=== PATIENT | male | born 1970 | race Caucasian/White ===

== ENCOUNTER → 2024-08-25 | Outpatient (CLI) | payer OTHER, SELFPAY ==
[2024-08-25 18:02] LABS: ALB/GLOB Ratio 1.3 RATIO (0.9-2.4); AST(SGOT) 34 U/L (<=37); Alanine Aminotransfer ALT/SGPT 58 U/L (<=46); Albumin, Serum 3.9 g/dL (3.5-5.0); Alkaline Phosphatase 71 U/L (40-129); Anion Gap 11 (5-15); BUN 20 mg/dL (4-19); BUN/Creat Ratio 21.1 RATIO (10-20); Calcium,Total 9.2 mg/dL (7.6-11.0); Carbon Dioxide 27.8 mmol/L (21.0-32.0); Chloride 101 mmol/L (98-108); Creatinine, Serum 0.93 mg/dL (0.70-1.20); EST Glomerular Filtration Rate 99 (>60); Globulin 3.1 g/dL (2.2-4.2); Glucose 136 mg/dL (70-99); Potassium 3.4 mmol/L (3.3-5.1); Sodium Level 140 mmol/L (133-145); Total Bilirubin 0.33 mg/dL (0.00-1.30)
== END | disposition home or self-care (01) ==
LOC: BIMLAB 14:58
PROVIDERS: PCP Internal Medicine; Visit Provider Internal Medicine
DX: K76.0 Fatty (change of) liver, not elsewhere classified (principal)
CPT/HCPCS: 36415; 80053

== ENCOUNTER → 2024-09-15 | Outpatient (CLI) | payer OTHER, SELFPAY | END | disposition home or self-care (01) | LOC: SL 13:03 | PROVIDERS: PCP Internal Medicine; Referring Provider Internal Medicine; Visit Provider Internal Medicine | DX: G47.10 Hypersomnia, unspecified (principal) | CPT/HCPCS: 95806 ==

== ENCOUNTER → 2024-10-13 | Outpatient (CLI) | payer OTHER, SELFPAY | END | disposition home or self-care (01) | PROVIDERS: PCP Internal Medicine; Referring Provider Internal Medicine; Visit Provider Internal Medicine | DX: G47.10 Hypersomnia, unspecified (principal) | CPT/HCPCS: 95806 ==

== ENCOUNTER 2024-10-20 02:01 | Emergency (ER) | payer OTHER, SELFPAY ==
[2024-10-20 02:02] VITALS: BP 171/68; PULSE 103; RESP 16; TEMP 36.6; O2SAT 97; BMI 54.0
--- NOTE | 2024-10-20 02:14 | EX.ED.DYSGE1 ---
HPI History of Present Illness Chief Complaint: General Illness Narrative Narrative: 54-year-old male who denies significant past medical history presents with what he thought was a cyst on the top of his skull. States he noticed small bumps on the area or at least 1 small bump on the top of his scalp on the left. That was Thursday, approximately 3 days ago. He states Thursday he thought it spread out a little bit. He denies any fevers or chills but states he has a headache 2. Times he is having problems opening his left eye. He has pain behind his left eye as well. No vision changes. No burning sensation. States he is not diabetic. [facility] Medical History Herniated disc Prediabetes Elevated LFTs Fatty liver Hyperlipidemia Hypertension Home Medications ?Medication ?Instructions ?Recorded ?Last Taken ?Type chlorthalidone 25 mg tablet 25 mg PO QDAY #30 tabs 10/17/24 Unknown Rx irbesartan 300 mg tablet 300 mg PO QDAY #30 tabs 10/17/24 Unknown Rx acyclovir 800 mg tablet 800 mg PO 5X/DAY #35 TABLETS 10/20/24 Unknown Rx gabapentin 100 mg capsule 100 mg PO TID #21 caps 10/20/24 Unknown Rx oxycodone-acetaminophen 5 mg-325 1 tab PO Q8H PRN pain 3 days #12 10/20/24 Unknown Rx mg tablet (Percocet) tabs Allergy/AdvReac Type Severity Reaction Status Date / Time lisinopril AdvReac Intermediate cough Verified 09/01/24 13:12 Family History Father Diabetes Myocardial infarction Heart disease Hypertension Surgical History No pertinent past surgical history Social History adopted: No household members: spouse number of children: 1 current occupational status: employed current occupation: [employer] pets and animals: Yes (1) pets and animals: dog(s) sexually active: Yes Smoking Status: Never smoker alcohol intake: current alcohol intake frequency: a few times a month Alcohol type: hard liquor substance use type: does not use caffeine: Yes (2) Type: other what type of physical activity do you participate in: walking frequency: 3-4 times per week do you feel safe at home: Yes ROS ROS ED ROS Narrative Review of systems positive for bump on top of scalp, left parietal area. Positive headache and pain behind left eye. No visual changes. No fevers or chills, no nausea or vomiting. EXAM Physical Exam Narrative Exam Narrative: Afebrile. Vital signs noted. Nontoxic-appearing. Cardiovascular examination reveals mild tachycardia. Lungs clear to auscultation bilaterally. Patient at top of scalp reveals small excoriated bumps without fluctuance. On the left forehead there are few red raised areas as well. PERRL, EOMI. Const Vital Signs: 10/20/24 02:02 10/20/24 02:17 Temperature 97.8 F Temperature Source Oral Pulse Rate 103 H Respiratory Rate 16 Respiratory Effort Normal Blood Pressure 171/68 H Blood Pressure Mean 102 Pulse Ox 97 Oxygen Delivery Method Room Air MDM MDM MDM Narrative Medical decision making narrative: The differential diagnosis to include but not limited to severe cyst versus lipoma versus shingles. Given his clinical examination and inspection I do feel he probably has prodromal shingles in the V1 distribution. He was given acyclovir 800 mg here in the emergency department. I did offer him stronger pain medications and prescription form but he declined initially, then finally accepted. He will be started on acyclovir to take 5 times a day, and also given a prescription for gabapentin to help prevent postherpetic neuralgia.. He will follow-up with his primary care provider. I will perform tetracaine and fluorescein staining of the left eye to look for dendritic lesions as well in the event that he would need follow-up with ophthalmology. Tetracaine was instilled in the left eye as well as fluorescein and there is no evidence of dendritic lesions. At this point in time, I feel he can be discharged to follow-up with his primary care provider. I did refer him to ophthalmology as well in the event that he developed shingles on his eyelid, he was told he may need another corneal examination. Return instructions to the emergency department were reviewed. Disposition is discharged home in stable condition. History & Record Review Discussion w/independent historian: Patient Additional record(s) reviewed:: No prior records (No prior ED visits) Discharge Plan Triage Chief Complaint: General Illness ED Provider: Dennys Betancur Dx/Rx/DC Orders Clinical Impression: Shingles, Scalp pain Instructions: ED Shingles (Herpes Zoster) Prescriptions: New gabapentin 100 mg capsule 100 mg PO TID Qty: 21 0RF oxycodone-acetaminophen [Percocet] 5-325 mg tablet 1 tab PO Q8H PRN (Reason: pain) 3 Days Qty: 12 0RF acyclovir 800 mg tablet 800 mg PO 5X/DAY Qty: 35 0RF No Action irbesartan 300 mg tablet 300 mg PO QDAY Qty: 30 2RF chlorthalidone 25 mg tablet 25 mg PO QDAY Qty: 30 2RF Primary Care Provider: Neda Avilez Referrals: Neda Avilez MD [Primary Care Provider] - 1 Week if not improving Joseph Santacruz MD [Med Staff - Active Staff] - As Needed Activity Restrictions/Additional Instructions: Take antiviral as directed. Take gabapentin to help prevent postherpetic neuralgia. Follow-up with [facility] as needed if you develop shingles on your eyelid or have vision problems. Return with new or worsening symptoms. Print Language: Czech Disposition Disposition: Home, Self Care
[2024-10-20] MEDS: Tetracaine 0.5% Ophthalmic Bottle 1 DRP OPHTHALMIC (02:28)
[2024-10-20 02:51] VITALS: BP 160/86; PULSE 89; RESP 16; TEMP 36.8; O2SAT 98
--- OUTSIDE RECORDS SUMMARY | 2024-10-20 02:52 | XMS RPT_ITS | CCD ---
Author Organization [facility] Care Team Providers Care It Applications Developer Name Role Phone Unavailable Primary Care Provider Unavailbhavik Rosen MD, Abby Noriega Primary Care Provider [phone] Kelly AUXILIARY EQUIPMENT TENDER.CATHI, Babar Unavailable [phone] HANK CABRERA Attending Unavailable ABBY ROSEN Primary Care Unavailable ABBY ROSEN Referring Unavailable BABAR MENDOZA Referring Unavailable ABBY ROSEN Primary Care Unavailable ABBY ROSEN Attending Unavailable BABAR MENDOZA Attending Unavailable Fatmata SANCHEZ, Dr. Red Attending Provider Dr. Neda Avilez MD Primary Care Provider [phone] Dr. Neda Avilez MD Referring Provider NURSE, BIM Attending Provider Unavailable Fatmata Neda Referring Unavailable Alexandr Avilezycia Attending Unavailable Fatmata, Neda Primary Care Unavailable Alexandr Avilezycia Attending Unavailable Fatmata, Neda Primary Care Unavailable Fatmata, Neda Referring Unavailable Rosio Avilezia Attending Unavailable Eola, Neda Primary Care Unavailable Rosio Avilezia Attending Unavailable Fatmata, Neda Referring Unavailable Alexandr Avilezycia Attending Unavailable Fatmata Neda Primary Care Unavailable Allergies Allergy Classification Reported Allergen(s) Allergy Type Date of Onset Reaction(s) Facility (10 sources) Lisinopril; Translations: [LISINOPRIL] Drug Allergy 12-02-[address] [facility] Work Phone: (1 source) Lisinopril Drug Allergy 09-01-2024 [facility] Repository Medications Current Medications Medication Drug Class(es) Dates Sig (Normalized) Sig (Original) cephalexin 500 mg oral capsule (2 sources) Cephalosporin Antibacterial Start: 11-13-2023 End: 11-18-2023 take 1 capsule by mouth four times daily cephALEXin (KEFLEX) 500 mg capsule Take 1 capsule by mouth four times daily for 5 days. 20 capsule 11/13/2023 11/18/2023 Active chlorthalidone 25 mg oral tablet (13 sources) Thiazide-like Diuretic Start: 08-25-2024 End: 08-25-2024 take 1 tablet by mouth once daily Chlorthalidone 25 mg tablet Active 25 mg PO daily 14 04August 25, 2024 2:53pm Start: 12-23-2023 take 1 tablet by jean-claude th once daily chlorthalidone (HYGROTON) 25 mg tablet Take 1 tablet by mouth once daily. 30 tablet 11 12/23/2023 Active diphenhydrAMINE (8 sources) Histamine-1 Receptor Antagonist DIPHENHYDRAMINE HCL (BENADRYL ORAL) Take by mouth as needed. Active doxycycline monohydrate 100 mg oral tablet (2 sources) Tetracycline-class Drug Start: 2023 End: 2023 take 1 tablet by mouth twice daily doxycycline monohydrate 100 mg tablet Take 1 tablet by mouth two times a day for 5 days. 10 tablet 11/13/2023 11/18/2023 Active hydroCHLOROthiazide 12.5 mg / lisinopril 20 mg oral tablet (1 source) Thiazide Diuretic, Angiotensin Converting Enzyme Inhibitor Start: 2023 take 1 tablet by mouth once daily in the morning lisinopril-hydroCHLOR Othiazide (ZESTORETIC) 20-12.5 mg per tablet Indications: Primary hypertension Take 1 tablet by mouth every morning. 30 tablet 11/19/2023 Active ibuprofen 200 mg oral capsule (8 sources) Nonsteroidal Anti-inflammatory Drug Ibuprofen 200 mg cap Take by mouth as needed. Active irbesartan 300 mg oral tablet (13 sources) Angiotensin 2 Receptor Cara Start: 2024 End: 2024 take 1 tablet by mouth once daily Irbesartan 300 mg tablet Active 300 mg PO daily 14 04August 25, 2024 2:53pm Start: 12-23-2023 take 1 tablet by jean-claude th once daily at bedtime irbesartan (AVAPRO) 300 mg tablet Take 1 tablet by mouth daily at bedtime. 30 tablet 5 12/23/2023 Active Completed/Discontinued Medications Medication Drug Class(es) Dates Sig (Normalized) Sig (Original) hydroCHLOROthiazide 25 mg oral tablet (1 source) Thiazide Diuretic Start: 4 End: 4 take 1 tablet by mouth once daily hydroCHLOROthiazide 25 mg tablet Take 1 tablet by mouth once daily. 30 tablet 12/02/2023 12/23/2023 Discontinued losartan potassium 100 mg oral tablet (1 source) Angiotensin 2 Receptor Cara Start: 4 End: 4 take 1 tablet by mouth once daily losartan (COZAAR) 100 mg tablet Take 1 tablet by mouth once daily. 30 tablet 12/02/2023 12/23/2023 Discontinued metFORMIN hydrochloride 1000 mg oral tablet (9 sources) Biguanide Start: 5 End: 5 take 1 tablet by mouth twice daily Metformin 1,000 mg tablet Discontinued 1000 mg PO TWICE A DAY August 25, 2024 12:00am August 25, 2024 2:05pm Start: 12-25-2023 End: 04-05-2024 take 1 tablet by mouth once daily at dinner, then take 2 tablets by mouth once daily at dinner metFORMIN ER (GLUCOPHAGE XR) 500 mg 24 hr tablet Indications: Morbid obesity with BMI of 50.0-59.9, adult (HCC) , Fatty liver Take 1 tablet by mouth daily with dinner for 7 days, THEN 2 tablets daily with dinner. 187 tablet 12/30/2023 04/05/2024 Active Problems Active Problems Problem Classification Problem Date Documented Date Episodic/Chronic Abdominal pain (1 source) Right flank pain; Translations: [Unspecified abdominal pain] 12-23-2023 Episodic Administrative/socia l admission (4 sources) First encounter by subject; Translations: [Persons encountering health services in other specified circumstances] 08-25-2024 Episodic Diabetes mellitus without complication (8 sources) Prediabetes; Translations: [Prediabetes] Onset: 08-25-2024 08-25-2024 Episodic Disorders of lipid metabolism (1 source) Mixed hyperlipidemia; Translations: [Mixed hyperlipidemia] 11-19-2023 Chronic Essential hypertension (9 sources) Essential hypertension; Translations: [Essential (primary) hypertension] Onset: 09-05-2024 11-19-2023 Chronic Immunizations and screening for infectious disease (12 sources) Patient encounter status; Translations: [Encounter for screening for human immunodeficiency virus [HIV]] 11-19-2023 Episodic Other connective tissue disease (4 sources) Swelling of lower limb; Translations: [Other specified soft tissue disorders] 11-18-2023 Episodic Other connective tissue disease (3 sources) Suspected respiratory disease; Translations: [Other symptoms and signs involving the nervous system] 08-25-2024 Episodic Other inflammatory condition of skin (1 source) Erythema of skin; Translations: [Erythematous condition, unspecified] 11-13-2023 Episodic Other liver diseases (8 sources) Steatosis of liver; Translations: [Fatty (change of) liver, not elsewhere classified] 12-23-2023 Chronic Other liver diseases (2 sources) Fatty (change of) liver, not elsewhere classified; Translations: [Fatty liver] Onset: 12-25-2023 Chronic Other lower respiratory disease (1 source) Dyspnea on exertion; Translations: [Other forms of dyspnea] 11-19-2023 Episodic Other nutritional; endocrine; and metabolic disorders (16 sources) Body mass index 40+ - severely obese; Translations: [Morbid (severe) obesity due to excess calories] Onset: 08-12-2017 Resolved: 11-19-2023 08-12-2017 Chronic Other nutritional; endocrine; and metabolic disorders (1 source) Morbid (severe) obesity due to excess calories; Translations: [Morbid obesity with BMI of 50.0-59.9, adult ([facility])] Onset: 12-25-2023 Chronic Other nutritional; endocrine; and metabolic disorders (1 source) Body mass index (BMI) 50.0-59.9, adult; Translations: [Morbid obesity with BMI of 50.0-59.9, adult ([facility])] Onset: 12-25-2023 Chronic Residual codes; unclassified (2 sources) Hypersomnia, unspecified; Translations: [Hypersomnia, unspecified] Onset: 09-22-2024 Chronic Residual codes; unclassified (1 source) Bilateral lower limb edema; Translations: [Localized edema] 11-19-2023 Episodic Residual codes; unclassified (3 sources) Immunization not carried out because of patient refusal; Translations: [Herpes zoster vaccination declined] 08-25-2024 Episodic Residual codes; unclassified (3 sources) Medication overuse; Translations: [Overuse of medication] 08-25-2024 Episodic Spondylosis; intervertebral disc disorders; other back problems (3 sources) Chronic low back pain; Translations: [Chronic low back pain] 08-25-2024 Episodic Past or Other Problems Problem Classification Problem Date Documented Da te Episodic/Chronic Other liver diseases (8 sources) Elevated liver enzymes level; Translations: [Abnormal levels of other serum enzymes] Onset: 07-12-2009 07-12-2009 Episodic Results Test Name Value Interpretation Reference Range Facility Office Visit Reporton [address] [facility] [address] [place] [address] OFFICE VISIT Date of Service: 09/01/24 MR#: [id number] Acct: [id number] Patient: Julissa SAHNI Rep #: [id number] : 1970 Provider: GIANNA NURSE Age/Sex: 54/M Location: [facility] Status: Signed Intake Vital Signs 08/25/24 14:12 09/01/24 13:13 Height 6 ft 1 in 6 ft 1 in Weight: 390 lb BMI 51.4 BP 176/92 H 122/78 H Blood Pressure Location Lt brachial Lt brachial Position Sitting Respiration 16 Pulse 82 Pulse Source Monitor Temp 97.4 F L Temp Source Temporal Pulse Oximetry (%) 97 Oxygen Delivery Method room air Intake Visit Reasons: BP CHECK Chief Complaint: bp check Carbide Operator Required: No Accompanied by: Self Is patient in pain?: No Allergies lisinopril Adverse Reaction (Intermediate, Verified 09/01/24 13:12) cough Medications ???Medication ???Instructions ???Recorded ???Confirmed ???Type chlorthalidone 25 mg tablet 25 mg PO QDAY #30 tabs 08/25/24 Rx irbesartan 300 mg tablet 300 mg PO QDAY #30 tabs 08/25/24 0 09/01/24 Rx Have you fallen in the past year?: No Nurse's Note: patient stated his blood pressure has been pretty good with medication he has been monitoring at home bp today was 122/78 stated he is happy with where he is at with medication at this time feels pretty good Assessment and Plan Assessment and Plan (1) Essential hypertension: Status: Acute Clinical Quality Measures Falls Risk Screening/Assistive Devices Have you fallen in the past year?: No 09/01/24 1503 Date Neda Puckett Signature: Date (if applicable) CC: Normal [facility] Anion gap in Serum or Plasma Ordered By: Neda Avilez on 08-25-2024 Anion gap [Moles/Vol] 11 mmol/L 5-15 [facility] BUN/creatinine ratioOrdered By: Neda Avilez on 08-25-2024 Urea nitrogen/Creatinine [Mass ratio] 21.1 mg/mg High 10- [facility] Bilirubin, totalOrdered By: Neda Avilez on 08-25-2024 Bilirubin [Mass/Vol] 0.33 mg/dL 0.00-1.30 [facility] Carbon dioxide, total [Moles /volume] in Central venous bloodOrdered By: Neda Avilez on 08-25-2024 CO2 [Moles/Vol] 27.8 mmol/L 21.0-32.0 [facility] Chloride assayOrdered By: Alexandr Avilez on 08-25-2024 Chloride [Moles/Vol] 101 mmol/L 98-108 [facility] Comprehensive Metabolic Prof ilon 08-25-2024 Albumin [Mass/Vol] 3.9 g/dL Normal 3.5-5.0 [facility] Comment on above: Performed By: #### L [id number] #### [facility] [address] [place], [place], [id number] Albumin/Globulin [Mass ratio] 1.3 {ratio} Normal 0.9-2.4 [facility] Comment on above: Performed By: #### L [id number] #### [facility] [address] [place], [address] ALK PHOS 71 U/L Normal 40-129 [facility] Comment on above: Performed By: #### L [id number] #### [facility] [address] [place], [address] ALT [Catalytic activity/Vol] 58 U/L High <=46 [facility] Comment on above: Performed By: #### L [id number] #### [facility] [address] [place], [address] AST [Catalytic activity/Vol] 34 U/L Normal <=37 [facility] Comment on above: Performed By: #### L [id number] #### [facility] [address] [place], [address] Bilirubin [Mass/Vol] 0.33 mg/dL Normal 0.00-1.30 [facility] Comment on above: Performed By: #### L [id number] #### [facility] [address] [place], [address] BUN/CRE 21.1 RATIO High 10-20 [facility] Comment on above: Performed By: #### L [id number] #### [facility] [address] [place], [address] Calcium [Mass/Vol] 9.2 mg/dL Normal 7.6-11.0 [facility] Comment on above: Performed By: #### L [id number] #### [facility] [address] [place], [address] Chloride [Moles/Vol] 101 mmol/L Normal 98-108 [facility] Comment on above: Performed By: #### L [id number] #### [facility] [address] [place], [address] CO2 [Moles/Vol] 27.8 mmol/L Normal 21.0-32.0 [facility] Comment on above: Performed By: #### L [id number] #### [facility] [address] [place], [address] Creatinine [Mass/Vol] 0.93 mg/dL Normal 0.70-1.20 [facility] Comment on above: Performed By: #### L [id number] #### [facility] [address] [place], [address] GAP 11 Normal 5-15 [facility] Comment on above: Performed By: #### L [id number] #### [facility] [address] [place], [address] GFR/1.73 sq M.predicted among non-blacks MDRD (S/P/Bld) [Vol rate/Area] 99 mL/min/{1.73_m2} Normal >60 [facility] Comment on above: Result Comment: mL/m in/1.73m2 CKD-EPI Creatinine Equation (2020) Performed By: #### L [id number] #### [facility] [address] [place], [address] Globulin (S) [Mass/Vol] 3.1 g/dL Normal 2.2-4.2 [facility] Comment on above: Performed By: #### L [id number] #### [facility] [address] [place], [address] Glucose [Mass/Vol] 136 mg/dL High 70-99 [facility] Comment on above: Performed By: #### L [id number] #### [facility] [address] [place], [address] Potassium [Moles/Vol] 3.4 mmol/L Normal 3.3-5.1 [facility] Comment on above: Result Comment: Hemo lysis present, Results??could be affected. ?? Performed By: #### L [id number] #### [facility] [address] [place], [place], [id number] Sodium [Moles/Vol] 140 mmol/L Normal 133-145 [facility] Comment on above: Performed By: #### L [id number] #### [facility] [address] [place], [place], [id number] T PROT 7.0 g/dL Normal 5.9-8.4 [facility] Comment on above: Performed By: #### L [id number] #### [facility] [address] [place], [place], [id number] Urea nitrogen [Mass/Vol] 20 mg/dL High 4-19 [facility] Comment on above: Performed By: #### L [id number] #### [facility] [address] [place], [place], [id number] Glomerular filtration rate ( GFR) estimation/1.73 sq m using serum, plasma, or whole bOrdered By: Neda Avilez on 08-25-2024 GFR/1.73 sq M.predicted among non-blacks MDRD (S/P/Bld) [Vol rate/Area] 99 mL/min/{1.73_m2} >60 [facility] Comment on above: mL/min/1.73m2 CKD-EP I Creatinine Equation (2020) Laboratory - Chemistry and C hemistry - challengeOrdered By: Neda Avilez on 08-25-2024 AST [Catalytic activity/Vol] 34 U/L <38 [facility] Laboratory - Hematology and Cell countsOrdered By: eNda Avilez on 08-25-2024 HbA1c (Bld) [Mass fraction] 5.9 % 4.2-6.3 [facility] Potassium measurement (mass/ volume)Ordered By: Neda Avilez on 08-25-2024 Potassium (Unsp spec) [Mass/Vol] 3.4 mmol/L 3.3-5.1 [facility] Comment on above: Hemolysis present, R esults could be affected. Serum creatinine measurement (mass/volume)Ordered By: Neda Avilez on 08-25-2024 Creatinine [Mass/Vol] 0.93 mg/dL 0.70-1.20 [facility] Serum globulin measurementOr dered By: Neda Avilez on 08-25-2024 Globulin (S) [Mass/Vol] 3.1 g/dL 2.2-4.2 [facility] Serum glucose measurement (m ass/volume)Ordered By: Neda Avilez on 08-25-2024 Glucose [Mass/Vol] 136 mg/dL High 70-99 [facility] Serum or plasma alanine sharp otransferase (ALT) measurementOrdered By: Neda Avilez on 08-25-2024 ALT [Catalytic activity/Vol] 58 U/L High <47 [facility] Serum or plasma albumin ry urement (mass/volume)Ordered By: Neda Avilez on 08-25-2024 Albumin [Mass/Vol] 3.9 g/dL 3.5-5.0 [facility] Serum or plasma albumin/glob ulin mass ratioOrdered By: Neda Avilez on 08-25-2024 Albumin/Globulin [Mass ratio] 1.3 {ratio} 0.9-2.4 [facility] Serum or plasma alkaline heladio sphatase measurementOrdered By: Neda Avilez on 08-25-2024 ALP [Catalytic activity/Vol] 71 U/L 40-129 [facility] Serum or plasma calcium ry urement (mass/volume)Ordered By: Neda Avilez on 08-25-2024 Calcium [Mass/Vol] 9.2 mg/dL 7.6-11.0 [facility] Serum or plasma urea nitroge n measurement (mass/volume)Ordered By: Neda Avilez on 08-25-2024 Urea nitrogen [Mass/Vol] 20 mg/dL High 4-19 [facility] Sodium levelOrdered By: Rosio Avilez on 08-25-2024 Sodium [Moles/Vol] 140 mmol/L 133-145 [facility] Total proteinOrdered By: Josr Avilez on 08-25-2024 Protein [Mass/Vol] 7.0 g/dL 5.9-8.4 [facility] Internal Medicine Office Vis ct 08-24-2024 Internal Medicine Office Visit [facility] [address] [place] [address] OFFICE VISIT Date of Service: 08/25/24 MR#: [id number] Acct: [id number] Name: Julissa SAHNI Rep #: [id number] : 1970 Provider: Dr. 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 Pt was last seen at [facility] in November, out of date on labs. Pt states he has had some elevated readings since being off meds. Pt had a trial of metformin 1000mg bid but never did the follow up. Pt brought labs in, scanned into chart. Previously had fatty liver and had elevate LFTs. Old physician was going to do imaging depending on next values. COUNT INCLUDES [facility] Medical History (Updated 08/25/24 @ 16:[address] Neda Avilez MD) Herniated disc Prediabetes Elevated LFTs Fatty liver Hyperlipidemia Hypertension Surgical History (Updated 08/25/24 @ 14:[address] Neda Avilez MD) No pertinent past surgical history Family History Father Diabetes Myocardial infarction Heart disease Hypertension Social History (Updated 08/25/24 @ 14:[address] Neda Avilez MD) adopted: No household members: spouse number of children: 1 current occupational status: employed current occupation: [employer] pets and animals: Yes (1) pets and animals: dog(s) sexually active: Yes Smoking Status: Never smoker alcohol intake: current alcohol intake frequency: a few times a month Alcohol type: hard liquor substance use type: does not use caffeine: Yes (2) Type: other what type of physical activity do you participate in: walking frequency: 3-4 times per week do you feel safe at home: Yes Questionnaire PQH-9 BMS Over the last 2 weeks, how often have you been bothered by any of the following problems? 1. Little interest or pleasure in doing things: more than half the days 2. Feeling down, depressed, or hopeless: not at all 3. Trouble falling or staying asleep, or sleeping too much: more than half the days 4. Feeling tired or having little energy: more than half the days 5. Poor appetite or overeating: several days 6. Feeling bad about yourself - or that you are a failure or have let yourself and your family down: not at all 7. Trouble concentrating on things, such as reading the newspaper or watching television: not at all 8. Moving or speaking so slowly that other people could have noticed? - Or the opposite - being so fidgety or restless that you have been moving around a lot more than usual: not at all 9. Thoughts that you would be better off or of hurting yourself in some way: not at all Total score: 7 If you checked off any problems, how difficult have these problems made it for you to do your work, take care of things at home, or get along with other people?: not difficult at all Source: Developed by Drs. Javi Nicholas, Roxann Nolasco, Rodriguez Peralta and colleagues, with an educational linnea from [employer] HPI HPI Details: Julissa SAHNI, is a 53 M who presents to the office today to establish care. He was seeing Dr. Rosen and last saw their office in November. He is up to date on his routine blood work and would like to do a cologuard. He doesn't want any immunizations. He doesn't smoke and does need refills. He reports he is eating healthy, but eats too much. He states he is active at work, but doesn't do much otherwise. The patient was started on blood pressure medications back in November. He was checking his blood pressure at home and reports it was in the 120s/70s. He states he has been out of his medication for about 2 weeks and hasn't been checking it during that time. Prior to running out, he was taking it as prescribed without problems. He reports he does monitor his salt intake. He does drink 2 monsters per day. The patient does snore and states he is sure he has sleep apnea. The patient had been having problems with leg swelling. He went to the office in November for that purpose. He states he (more content not included)... Normal [facility] 03-08-2024 [facility] Telephone ([facility]) -- FLAKITO SAHNI ([id number]) 1970 M Date Time Provider Department 03/08/24 HANK CABRERA During your visit today, we recorded the following information about you: Saman Gunderson 03/08/2024 11:16 AM Signed Left VM about appointment changing to virtual instead of in person. Allergies As of Date: 03/08/2024 Noted Allergy Reaction LISINOPRIL 12/02/2023 3 - Cough Date Reviewed: 12/25/2023 Reviewed by: Hank Cabrera MD - Fully Assessed Prescriptions as of 03/08/2024 - metFORMIN ER (GLUCOPHAGE XR) 500 mg 24 hr tablet Take 1 tablet by mouth daily with dinner for 7 days, THEN 2 tablets daily with dinner. - chlorthalidone (HYGROTON) 25 mg tablet Take 1 tablet by mouth once daily. - irbesartan (AVAPRO) 300 mg tablet Take 1 tablet by mouth daily at bedtime. - Ibuprofen 200 mg cap Take by mouth as needed. - DIPHENHYDRAMINE HCL (BENADRYL ORAL) Take by mouth as needed. Problem List As Of Date 03/08/2024 Noted Resolved Elevated Liver Enzymes [R74.8] 07/12/2009 Obesity, Class III, BMI 40-49.9 (morbid obesity*08/12/2017 11/19/2023 Encounter Status:Closed by [facility] FLAKITO SAHNI ([id number]) 1970 Date Time Provider Department 12/29/23 HANK CABRERA [facility] During your visit today, we recorded the following information about you: Paradise Larry 12/29/2023 12:47 PM Signed [facility] called about metFORMIN ER (GLUCOPHAGE XR) 500 mg 24 hr tablet instructions. Current instructions: Take 2 tablets by mouth daily with dinner for 7 days, THEN 2 tablets daily with dinner. Please send new prescription with updated information. [facility] [employer] Endocrinology [facility] Metabolism [facility] X-20, F-20 Allergies As of Date: 12/29/2023 Noted Allergy Reaction LISINOPRIL 12/02/2023 3 - Cough Date Reviewed: 12/25/2023 Reviewed by: Hank Cabrera MD - Fully Assessed Reason for Visit: Medication Problem [65] Visit Diagnoses:Morbid obesity with BMI of 50.0-59.9, adult (HCC) [E66.01, Z68.43] Fatty liver [K76.0] Order(s):metFORMIN ER (GLUCOPHAGE XR) 500 mg 24 hr tabletTake 1 tablet by mouth daily with dinner for 7 days, THEN 2 tablets daily with dinner.Disp: 187 tabletRfl: 0 Prescriptions as of 12/30/2023 - metFORMIN ER (GLUCOPHAGE XR) 500 mg 24 hr tablet Take 1 tablet by mouth daily with dinner for 7 days, THEN 2 tablets daily with dinner. - chlorthalidone (HYGROTON) 25 mg tablet Take 1 tablet by mouth once daily. - irbesartan (AVAPRO) 300 mg tablet Take 1 tablet by mouth daily at bedtime. - Ibuprofen 200 mg cap Take by mouth as needed. - DIPHENHYDRAMINE HCL (BENADRYL ORAL) Take by mouth as needed. Problem List As Of Date 12/29/2023 Noted Resolved Elevated Liver Enzymes [R74.8] 07/12/2009 Obesity, Class III, BMI 40-49.9 (morbid obesity*08/12/2017 11/19/2023 Prescriptions ordered this encounter Disp Refills Start End METFORMIN ER 500 MG TABLET,EXTENDED * 187 * 0 12/30/2023 04/05/2024 Route: ORAL Sig: Take 1 tablet by mouth daily with dinner for 7 days, THEN 2 tablets daily with dinner. Medications Discontinued During This Encounter Prescriptions - metFORMIN ER (GLUCOPHAGE XR) 500 mg 24 hr tablet (Discontinued) Take 2 tablets by mouth daily with dinner for 7 days, THEN 2 tablets daily with dinner. Encounter Status:Closed by HANK CABRERA on 12/30/23 [facility] V[facility] 12-23-2023 CNOV Office Visit (FPWADS ) -- FLAKITO SAHNI ([id number]) 1970 M Date Time Provider Department 12/23/23 1:00 PM ABBY ROSEN During your visit today, we recorded the following information about you: Pulse Blood pressure Weight Height 72/minute 148/80 171 kg 1.829 m Abby Rosen MD 12/23/2023 3:46 PM Signed CHIEF COMPLAINT Patient presents with: Establish Care HISTORY OF PRESENT ILLNESS Flakito Sahni is a 53 year old male who presents here today to establish care. - Reports feeling well Lower Leg Edema - Bilaterally - Worse with heat and exercise - Improved - States that he has noticed a difference when he works 10 hr vs 12 hrs Hypertension - Currently managed on losartan 100 mg tablet and hydrochlorothiazide 25 mg tablet - BP ranges from 130's-170's Elevated Liver Enzymes - Hx of fatty liver - Denies undergoing biopsy in the past Flank/Back Pain - More noticeable at night when laying down in bed - Feels like pain is more in his flank than back - Admits to feeling a lump/mass, if I push real hard - denies history of gallbladder issues Weight - Diet is poor. Does okay on the days that he works, then during his 4 days off, tends to binge eat - No regular exercise routine outside of work - Last 3 Encounter Wt Readings: Date: Wt: 12/23/2023 171 kg (376 lb 15.8 oz) 11/19/2023 169 kg (372 lb 9.2 oz) 11/18/2023 171 kg (376 lb 15.8 oz) Health Maintenance: Due for Influenza Vaccine (1) Due for Covid-19 Vaccine ( season) Due for Hep B Vaccine (1 of 3-3 dose series) Due for Colorectal Cancer Screening Due for Shingrix Vaccine (1 of 2) Past, family and social history reviewed. PAST MEDICAL HISTORY PAST MEDICAL HISTORY Diagnosis Date Fatty liver PAST SURGICAL HISTORY Procedure Laterality Date NONE ALLERGIES Lisinopril FAMILY HISTORY Problem Relation Age of Onset Diabetes Father None Mother Social History Tobacco Use Smoking status: Never Smokeless tobacco: Never Substance Use Topics Alcohol use: Yes Drug use: No REVIEW OF SYSTEMS General: Feels well, no weight changes, fevers or chills. HEENT: No sinus congestion, earache, sore throat. Cardiac: No chest pain, palpitations Resp: No cough, wheeze, shortness of breath GI: No reflux symptoms, food intolerance, bowel changes. : No urinary frequency, dysuria. MS: +Back/flank Pain PHYSICAL EXAMINATION BP 155/85 Pulse 72 Ht 182.9 cm (6') Wt (!) 171 kg (376 lb 15.8 oz) SpO2 97% BMI 51.13 kg/m? Repeat BP: 148/80 General: Alert, well developed, well nourished, no distress, pleasant and cooperative. Morbidly obese. HEENT: No adenopathy or thyromegaly Heart: Regular rate and rhythm. Normal S1 and S2. No murmurs, rubs, or gallops. Lungs: Clear to auscultation bilaterally. No respiratory distress. No wheezes, rales, or rhonchi. Abdomen: Soft, non-tender, no distention Extremities: Feet/ankles without edema, posterior tibial pulses full and symmetrical Skin: No rashes or suspicious skin lesions noted. Health Maintenance: Depression Screening Never done Anxiety Screening Never done Hepatitis B Vaccine(1 of 3 - 19+ 3-dose series) Never done Colorectal Cancer Screening Never done Shingrix Vaccine(1 of 2) Never done Influenza Vaccine(1) due on 11/15/2023 Covid-19 Vaccine( - 2023- season) due on 11/15/2023 Diabetes Screening due on 11/18/2026 Lipid Screening due on 11/18/2028 DTaP,Tdap,Td Vaccine(2 - Td or Tdap) due on 03/28/2032 Hepatitis C Screening Completed HIV Screening Completed Data Reviewed Latest Ref Rng 11/19/2023 Protein, Total 6.3 - 8.0 g/dL 7.5 Albumin 3.9 - 4.9 g/dL 4.3 Calcium 8.5 - 10.2 mg/dL 10.2 Bilirubin, Total 0.2 - 1.3 mg/dL 0.5 Alkaline Phosphatase 38 - 113 U/L 89 AST 14 - 40 U/L 89 (H) ALT 10 - 54 U/L 114 (H) Glucose 74 - 99 mg/dL 98 BUN 9 - 24 mg/dL 11 Creatinine 0.73 - 1.22 mg/dL 0.82 Sodium 136 - 144 mmol/L 138 Potassium 3.7 - 5.1 mmol/L 4.3 Chloride 98 - 107 mmol/L 100 CO2 22 - 30 mmol/L 25 Anion Gap 8 - 15 mmol/L 13 eGFR >=60 mL/min/1.73m? 106 WBC 3.70 - 11.00 k/uL 9.95 RBC 4.20 - 6.00 m/uL 5.67 Hemoglobin 13.0 - 17.0 g/dL 16.2 Hematocrit 39.0 - 51.0 % 49.6 MCV 80.0 - 100.0 fL 87.5 MCH 26.0 - 34.0 pg 28.6 MCHC 30.5 - 36.0 g/dL 32.7 RDW-CV 11.5 - 15.0 % 13.3 Platelet Count 150 - 400 k/uL 238 MPV 9.0 - 12.7 fL 12.1 Absolute nRBC <0.01 k/uL <0.01 Cholesterol, Total <200 mg/dL 222 (H) Triglyceride <150 mg/dL 168 (H) HDL Cholesterol >39 mg/dL 39 (L) Non HDL Cholesterol <130 mg/dL 183 (H) Fasting Time hrs unknown VLDL Cholesterol <30 mg/dL 34 (H) TC:HDL Ratio <5.10 5.69 (H) LDL Cholesterol <100 mg/dL 149 (H) LDL:HDL Ratio <2.54 3.82 (H) Hemoglobin A1C 4.3 - 5.6 % 6.0 (H) Estimated Average Glucose mg/dL 126 TSH 0.270 - 4.200 mIU/L 1.650 NT Pro BNP <125 pg/mL 78 PSA Scre (more content not included)... Normal [facility] CBC panel Auto (Bld)on 11-18 Erythrocyte distribution width (RBC) [Ratio] 13.3 % Normal 11.5-15.0 [facility] Comment on above: Order Comment: Speci men Type: BLOOD SPECIMEN Ordering Facility: [facility] Address: [address] [place] [address] Performed By: #### 3 3762-6, 15821-4, 3016-3, 64643-2 #### [facility] CLIA [id number] [address] [place] [address] [place] Hematocrit (Bld) [Volume fraction] 49.6 % Normal 39.0-51.0 [facility] Comment on above: Order Comment: Speci men Type: BLOOD SPECIMEN Ordering Facility: [facility] Address: [address] [place] [address] Performed By: #### 3 3762-6, 10552-3, 3016-3, 39239-2 #### [facility] CLIA [id number] [address] [place] [address] [place] Hemoglobin (Bld) [Mass/Vol] 16.2 g/dL Normal 13.0-17.0 [facility] Comment on above: Order Comment: Speci men Type: BLOOD SPECIMEN Ordering Facility: [facility] Address: [address] [place] [address] Performed By: #### 3 3762-6, 14305-8, 3016-3, 03085-8 #### [facility] CLIA [id number] [address] [place] [address] [place] MCH (RBC) [Entitic mass] 28.6 pg Normal 26.0-34.0 [facility] Comment on above: Order Comment: Speci men Type: BLOOD SPECIMEN Ordering Facility: [facility] Address: [address] [place] [address] Performed By: #### 3 3762-6, 88418-7, 301-3, 64718-6 #### [facility] CLIA [id number] [address] [place] [address] [place] MCHC (RBC) [Mass/Vol] 32.7 g/dL Normal 30.5-36.0 [facility] Comment on above: Order Comment: Speci men Type: BLOOD SPECIMEN Ordering Facility: [facility] Address: [address] [place] [address] Performed By: #### 3 3762-6, 78861-3, 301-3, 10387-3 #### [facility] CLIA [id number] [address] [place] [address] [place] MCV (RBC) [Entitic vol] 87.5 fL Normal 80.0-100.0 [facility] Comment on above: Order Comment: Speci men Type: BLOOD SPECIMEN Ordering Facility: [facility] Address: [address] [place] [address] Performed By: #### 3 3762-6, 50529-2, 3016-3, 23435-2 #### [facility] CLIA [id number] [address] [place] [address] [place] Nucleated RBC (Bld) [#/Vol] 10*3/uL Normal <0.01 [facility] Comment on above: Order Comment: Speci men Type: BLOOD SPECIMEN Ordering Facility: [facility] Address: [address] [place] [address] Performed By: #### 3 3762-6, 97837-9, 3016-3, 49842-8 #### [facility] CLIA [id number] [address] [place] [address] [place] Platelet mean volume (Bld) [Entitic vol] 12.1 fL Normal 9.0-12.7 [facility] Comment on above: Order Comment: Speci men Type: BLOOD SPECIMEN Ordering Facility: [facility] Address: [address] [place] [address] Performed By: #### 3 3762-6, 79831-4, 3016-3, 21410-8 #### [facility] CLIA [id number] [address] [place] [address] [place] Platelets (Bld) [#/Vol] 238 10*3/uL Normal 150-400 [facility] Comment on above: Order Comment: Speci men Type: BLOOD SPECIMEN Ordering Facility: [facility] Address: [address] [place] [address] Performed By: #### 3 3762-6, 55718-6, 3016-3, 66779-1 #### [facility] CLIA [id number] [address] [place] [address] [place] RBC (Bld) [#/Vol] 5.67 10*6/uL Normal 4.20-6.00 [facility] Comment on above: Order Comment: Speci men Type: BLOOD SPECIMEN Ordering Facility: [facility] Address: [address] [place] [address] Performed By: #### 3 3762-6, 66693-1, 3016-3, 92257-9 #### [facility] CLIA [id number] [address] [place] [address] [place] WBC (Bld) [#/Vol] 9.95 10*3/uL Normal 3.70-11.00 [facility] Comment on above: Order Comment: Speci men Type: BLOOD SPECIMEN Ordering Facility: [facility] Address: [address] [place] [address] Performed By: #### 3 3762-6, 44127-4, 3016-3, 62418-4 #### [facility] CLIA [id number] [address] [place] [address] [place] CNOVon 11-19-2023 CNOV Office Visit (FPWADS ) -- FLAKITO SAHNI ([id number]) 1970 M Date Time Provider Department 11/19/23 11:00 AM BABAR CORBIN FPDIANA During your visit today, we recorded the following information about you: Pulse Blood pressure Weight Height 103/minute 171/112 169 kg 1.829 m Babar Corbin APRN.SERVICE CONSULTANT 11/19/2023 1:39 PM Signed This note was created using NoteWriter. Subjective Flakito Sahni is a 53 year old male. Patient here to establish care. Last saw previous PCP in 2012 and hasn't had any follow-up care since that time. Drinks 3-4 monster drinks per day, denies palpitations, but sometimes gets chest pain, also shortness of breath with exertion. Has had elevated blood pressure's in the past, but never treated with medication Intermittent lower leg edema with heat, alcohol use. Worsening recently with recent increase in work schedule, then had redness/rash as well so went to urgent care and was treated for cellulitis in legs. Reports ongoing lower leg swelling that resolves with elevation, doesn't usually have swelling when he first wakes up in the morning. Gained 100 lbs over the last 4 years. Admits to poor eating and not exercising. STOP BANG Questionnaire 1. Snoring Do you snore loudly (louder than talking or loud enough to be heard through closed doors)? NO 2. Tired Do you often feel tired, fatigued, or sleepy during daytime? YES 3. Observed Has anyone observed you stop breathing during your sleep? NO 4. Blood Pressure Do you have or are you being treated for high blood pressure? YES 5. BMI BMI more than 35 kg/m2? YES 6. Age Age over 50 yr old? YES 7. Neck circumference Neck circumference greater than 40 cm? YES 8. Gender Gender male? YES * Neck circumference is measured by staff High risk of MK: answering yes to three or more items Low risk of MK: answering yes to less than three items The history is provided by the patient. Review of Systems Constitutional: Negative for unexpected weight change. Eyes: Positive for visual disturbance. Respiratory: Positive for shortness of breath and wheezing. Negative for cough. Cardiovascular: Positive for chest pain and leg swelling. Negative for palpitations. Gastrointestinal: Negative for constipation and diarrhea. Genitourinary: Negative for difficulty urinating, dysuria, frequency and urgency. Skin: Positive for color change. Neurological: Positive for headaches. Negative for dizziness. PAST MEDICAL HISTORY No date: Fatty liver PAST SURGICAL HISTORY No date: NONE ALLERGIES Patient has no known allergies. MEDICATIONS Ibuprofen 200 mg cap Take by mouth as needed. lisinopril-hydroCHLOROthia zide (ZESTORETIC) 20-12.5 mg per tablet Take 1 tablet by mouth every morning. DIPHENHYDRAMINE HCL (BENADRYL ORAL) Take by mouth as needed. FAMILY HISTORY Problem Relation Age of Onset Diabetes Father None Mother Social History Tobacco Use Smoking status: Never Smokeless tobacco: Never Substance Use Topics Alcohol use: Yes Drug use: No Objective BP 171/112 Pulse 103 Ht 182.9 cm (6') Wt (!) 169 kg (372 lb 9.2 oz) BMI 50.53 kg/m? Physical Exam Vitals and nursing note reviewed. Constitutional: Appearance: He is well-developed. He is obese. He is not ill-appearing. Cardiovascular: Rate and Rhythm: Normal rate and regular rhythm. Heart sounds: Normal heart sounds. Pulmonary: Effort: Pulmonary effort is normal. Breath sounds: Normal breath sounds. Musculoskeletal: Right lower le+ Pitting Edema present. Left lower le+ Pitting Edema present. Skin: General: Skin is warm and dry. Neurological: Mental Status: He is alert and oriented to person, place, and time. Gait: Gait normal. Psychiatric: Mood and Affect: Mood normal. Assessment and Plan 1. Primary hypertension Fasting labs today. Start medication and checking blood pressure's regularly at home. Send MC message in 1-2 weeks with blood pressure updates. - COMPLETE BLOOD COUNT - COMPREHENSIVE METABOLIC PANEL - ECG COMPLETE - lisinopril-hydroCHLOROthia zide (ZESTORETIC) 20-12.5 mg per tablet; Take 1 tablet by mouth every morning. Dispense: 30 tablet; Refill: 0 2. Bilateral leg edema Likely venous insufficiency, recommend watching salt intake, compression stockings. Consider cardiac Echo pending continued symptoms and lab results, patient would like to hold off on that referral at this time. - NT PRO BNP 3. STRANGE (dyspnea on exertion) Likely related to weight, consider echo and stress test, patient would like to wait at this time, discuss at next visit with PCP. 4. Morbid obesity with BMI of 50.0-59.9, adult (HCC) Encouraged to start exercising and healthy diet. Offered dietitian services/medical management, patient will think about this and consider referral at next visit. - THYROID STIMULATIN (more content not included)... Normal [facility] Comprehensive metabolic 2000 panelon 11-19-2023 Albumin [Mass/Vol] 4.3 g/dL Normal 3.9-4.9 [facility] Comment on above: Order Comment: Speci men Type: BLOOD SPECIMEN Ordering Facility: [facility] Address: [address] [place] [address] Performed By: #### 3 3762-6, 51422-5, 3016-3, 27415-3 #### [facility] CLIA [id number] [address] [place] [address] [place] [address] [place] ALP [Catalytic activity/Vol] 89 U/L Normal 38-113 [facility] Comment on above: Order Comment: Speci men Type: BLOOD SPECIMEN Ordering Facility: [facility] Address: [address] [place] [address] Performed By: #### 3 3762-6, 29602-5, 3016-3, 20741-1 #### [facility] CLIA [id number] [address] [place] [address] [place] ALT [Catalytic activity/Vol] 114 U/L High 10-54 [facility] Comment on above: Order Comment: Speci men Type: BLOOD SPECIMEN Ordering Facility: [facility] Address: [address] [place] [address] Performed By: #### 3 3762-6, 50002-2, 3015-3, 64135-8 #### [facility] CLIA [id number] [address] [place] [address] [place] Anion gap [Moles/Vol] 13 mmol/L Normal 8-15 [facility] Comment on above: Order Comment: Speci men Type: BLOOD SPECIMEN Ordering Facility: [facility] Address: [address] [place] [address] Performed By: #### 3 3762-6, 48421-8, 3015-3, 38472-5 #### [facility] CLIA [id number] [address] [place] [address] [place] AST [Catalytic activity/Vol] 89 U/L High 14-40 [facility] Comment on above: Order Comment: Speci men Type: BLOOD SPECIMEN Ordering Facility: [facility] Address: [address] [place] [address] Performed By: #### 3 3762-6, 42333-3, 6-3, 88411-7 #### [facility] CLIA [id number] [address] [place], [place] [address] [place] Bilirubin [Mass/Vol] 0.5 mg/dL Normal 0.2-1.3 [facility] Comment on above: Order Comment: Speci men Type: BLOOD SPECIMEN Ordering Facility: [facility] Address: [address] [place] [address] Performed By: #### 3 3762-6, 45722-1, 3016-3, 46521-5 #### [facility] CLIA [id number] [address] [place] [address] [place] Calcium [Mass/Vol] 10.2 mg/dL Normal 8.5-10.2 [facility] Comment on above: Order Comment: Speci men Type: BLOOD SPECIMEN Ordering Facility: [facility] Address: [address] [place] [address] Performed By: #### 3 3762-6, 94083-0, 6-3, 11983-5 #### [facility] CLIA [id number] [address] [place] [address] [place] Chloride [Moles/Vol] 100 mmol/L Normal 98-107 [facility] Comment on above: Order Comment: Speci men Type: BLOOD SPECIMEN Ordering Facility: [facility] Address: [address] [place] [address] Performed By: #### 3 3762-6, 54397-2, 3016-3, 78837-4 #### [facility] CLIA [id number] [address] [place] [address] [place] CO2 [Moles/Vol] 25 mmol/L Normal 22-30 [facility] Comment on above: Order Comment: Speci men Type: BLOOD SPECIMEN Ordering Facility: [facility] Address: [address] [place] [address] Performed By: #### 3 3762-6, 84720-6, 3016-3, 14088-7 #### [facility] CLIA [id number] [address] [place], [place] [address] [place] Creatinine [Mass/Vol] 0.82 mg/dL Normal 0.73-1.22 [facility] Comment on above: Order Comment: Sally bonilla Type: BLOOD SPECIMEN Ordering Facility: [facility] Address: [address] [place] [address] Performed By: #### 3 3762-6, 63148-1, 3016-3, 20163-0 #### [facility] CLIA [id number] [address] [place] [address] [place] Creatinine and Glomerular filtration rate.predicted panel (S/P/Bld) 106 mL/min/1.73m??? Normal >=60 [facility] Comment on above: Order Comment: Sally bonilla Type: BLOOD SPECIMEN Ordering Facility: [facility] Address: [address] [place] [address] Result Comment: Alma Delia mated Glomerular Filtration Rate (eGFR) is calculated using the 2020 CKD-EPI creatinine equation. This equation utilizes serum creatinine, sex, and age as parameters. The creatinine assay has traceable calibration to isotope dilution-mass spectrometry. Refer to KDIGO guidelines for clinical interpretation. In patients with unstable renal function, e.g. those with acute kidney injury, the eGFR may not accurately reflect actual GFR. Performed By: #### 3 3762-6, 21051-3, 3016-3, 25845-0 #### [facility] CLIA [id number] [address] [place] [address] [place] Glucose [Mass/Vol] 98 mg/dL Normal 74-99 [facility] Comment on above: Order Comment: Sally bonilla Type: BLOOD SPECIMEN Ordering Facility: [facility] Address: [address] [place] [address] Result Comment: The [place] [employer] (ADA) provides guidance for cutoff values for fasting glucose and random glucose. The ADA defines fasting as no caloric intake for at least 8 hours. Fasting plasma glucose results between 100 to 125 mg/dL indicate increased risk for diabetes (prediabetes). Fasting plasma glucose results greater than or equal to 126 mg/dL meet the criteria for diagnosis of diabetes. In the absence of unequivocal hyperglycemia, results should be confirmed by repeat testing. In a patient with classic symptoms of hyperglycemia or hyperglycemic crisis, random plasma glucose results greater than or equal to 200 mg/dL meet the criteria for diagnosis of diabetes. Reference: Standards of Medical Care in Diabetes 2016, [place] [employer] Association. Diabetes Care. 2016.39(Suppl 1). Performed By: #### 3 3762-6, 87307-1, 3016-3, 54361-7 #### [facility] CLIA [id number] [address] [place] [address] [place] Potassium [Moles/Vol] 4.3 mmol/L Normal 3.7-5.1 [facility] Comment on above: Order Comment: Speci men Type: BLOOD SPECIMEN Ordering Facility: [facility] Address: [address] [place] [address] Performed By: #### 3 3762-6, 76483-0, 6-3, 36387-0 #### [facility] CLIA [id number] [address] [place] [address] [place] Protein [Mass/Vol] 7.5 g/dL Normal 6.3-8.0 [facility] Comment on above: Order Comment: Sally bonilla Type: BLOOD SPECIMEN Ordering Facility: [facility] Address: [address] [place] [address] Performed By: #### 3 3762-6, 32740-6, 6-3, 73766-2 #### [facility] CLIA [id number] [address] [place] [address] [place] Sodium [Moles/Vol] 138 mmol/L Normal 136-144 [facility] Comment on above: Order Comment: Speci men Type: BLOOD SPECIMEN Ordering Facility: [facility] Address: [address] [place] [address] Performed By: #### 3 3762-6, 98259-3, 6-3, 18621-5 #### [facility] CLIA [id number] [address] [place], [place] [address] [place] Urea nitrogen [Mass/Vol] 11 mg/dL Normal 9-24 [facility] Comment on above: Order Comment: Sally bonilla Type: BLOOD SPECIMEN Ordering Facility: [facility] Address: [address] [place] [address] Performed By: #### 3 3762-6, 97021-4, 3016-3, 30109-2 #### [facility] CLIA [id number] [address] [place] [address] ECG COMPLETEon 11-19-2023 ECG COMPLETE Ventricular Rate : 9 5 BPM Atrial Rate : 95 BPM P-R Interval : 152 ms QRS Duration : 86 ms Q-T Interval : 352 ms QTC Calculation(Bazett) : 442 ms Calculated P [place] : 60 degrees Calculated R Redding : 30 degrees Calculated T Redding : 57 degrees NORMAL SINUS RHYTHM NORMAL ECG NO PREVIOUS ECGS AVAILABLE Confirmed by MD RIBEIRO GREGORY () on 11/20/2023 8:23:10 AM NAME : FLAKITO SAHNI PID : [id number] : 1970 Gender : Male Race : ORD : [id number] Procedure Date : Nov 19 2023 10:02:15 Edit Date : Nov 20 2023 08:23:14 Diagnosis: NORMAL SINUS RHYTHM NORMAL ECG NO PREVIOUS ECGS AVAILABLE Confirmed by MD RIBEIRO GREGORY () on 11/20/2023 8:23:10 AM Test Reason : I10 Primary hypertension Location : [address] [place] [address] Overread By : MD RIBEIRO GREGORY Edited By : MD RIBEIRO GREGORY Referred By : , Acquired by : Anayeli lucas [facility] HCV Ab Ser Qlon 11-19-2023 HCV Ab Ql (S) Negative Normal Negative [facility] Comment on above: Order Comment: Sally bonilla Type: BLOOD SPECIMEN Ordering Facility: [facility] Address: [address] [place] [address] Result Comment: The result suggests no evidence of active infection with Hepatitis C virus. Should recent infection be suspected, repeat testing may be considered 4-6 weeks after this draw. Performed By: #### 3 3762-6, 43545-5, 3016-3, 41440-0 #### [facility] CLIA [id number] [address] [place] [address] [place] HIV 1+2 Ab IA Qlon 4 HIV 1 and 2 Ab IA.rapid Nom (S/P/Bld) Normal [facility] Comment on above: Order Comment: Speci men Type: BLOOD SPECIMEN Ordering Facility: [facility] Address: [address] [place] [address] Result Comment: Test not indicated. Performed By: #### 3 3762-6, 79446-1, 3016-3, 55120-3 #### [facility] CLIA [id number] [address] [place] [address] [place] HIV 1+2 Ab+HIV1 p24 Ag IA Ql Non-Reactive Normal Nonreactive [facility] Comment on above: Order Comment: Speci men Type: BLOOD SPECIMEN Ordering Facility: [facility] Address: [address] [place] [address] Performed By: #### 3 3762-6, 55407-5, 3016-3, 97884-7 #### [facility] CLIA [id number] [address] [place] [address] [place] HIV immunoassay testing algorithm interpretation (S/P/Bld) [Interp] Normal [facility] Comment on above: Order Comment: Speci men Type: BLOOD SPECIMEN Ordering Facility: [facility] Address: [address] [place] [address] Result Comment: No e vidence of HIV-1 or HIV-2 infection. Should recent infection be suspected, repeat testing may be considered 2-3 weeks after this draw. [place] Rev. Code 3701.243(E): This information has been disclosed to you from confidential records protected from disclosure by state law. ???You shall make no further disclosure of this information without the specific, written, and informed release of the individual to whom it pertains or as otherwise permitted by state law. A general authorization for the release of medical or other information is not sufficient for the purpose of the release of HIV test results or diagnoses. Performed By: #### 3 3762-6, 29045-6, 3, #### [facility] CLIA [id number] [address] [place] [address] [place] HbA1c (Bld)on 11-19-2023 Average glucose Estimated from glycated hemoglobin (Bld) [Mass/Vol] 126 mg/dL Normal [facility] Comment on above: Order Comment: Sally bonilla Type: BLOOD SPECIMEN Ordering Facility: [facility] Address: [address] [place] [address] Result Comment: eAG: (Estimated average glucose) is a calculated value from HgbA1c and is customer service representative of the average blood glucose level in the last 2-3 month period. Performed By: #### 3 3762-6, , 3015-05, #### [facility] CLIA [id number] [address] [place] [address] [place] HbA1c (Bld) [Mass fraction] 6.0 % High 4.3-5.6 [facility] Comment on above: Order Comment: Sally bonilla Type: BLOOD SPECIMEN Ordering Facility: [facility] Address: [address] [place] [address] Result Comment: Amer ican Diabetes Association guidelines indicate that patients with HgbA1c in the range 5.7-6.4% are at increased risk for development of diabetes, and intervention by lifestyle modification may be beneficial. HgbA1c greater or equal to 6.5% is considered diagnostic of diabetes. Performed By: #### 3 3762-6, 72710-3, 3, 17744-4 #### [facility] CLIA [id number] [address] [place] [address] [place] Lipid 1996 panelon 4 Cholesterol [Mass/Vol] 222 mg/dL High <200 [facility] Comment on above: Order Comment: Sally bonilla Type: BLOOD SPECIMEN Ordering Facility: [facility] Address: [address] [place] [address] Result Comment: <200 mg/dL, Desirable 200-239 mg/dL, Borderline high >239 mg/dL, High Performed By: #### 3 3762-6, 72647-1, 3016-3, 92590-7 #### [facility] CLIA [id number] [address] [place] [address] [place] Cholesterol in HDL [Mass/Vol] 39 mg/dL Low >39 [facility] Comment on above: Order Comment: Sally bonilla Type: BLOOD SPECIMEN Ordering Facility: [facility] Address: [address] [place] [address] Result Comment: 40-5 9 mg/dL, Acceptable >59 mg/dL, High: Negative risk factor for coronary heart disease <40 mg/dL, Low: Positive risk factor for coronary heart disease Performed By: #### 3 3762-6, 42483-0, 3016-3, 62690-9 #### [facility] CLIA [id number] [address] [place] [address] [place] Cholesterol in LDL [Mass/Vol] 149 mg/dL High <100 [facility] Comment on above: Order Comment: Sally bonilla Type: BLOOD SPECIMEN Ordering Facility: [facility] Address: [address] [place] [address] Result Comment: <100 mg/dL, Optimal 100-129 mg/dL, Near optimal/above optimal 130-159 mg/dL, Borderline high 160-189 mg/dL, High >189 mg/dL, Very high Secondary prevention optimal LDL Cholesterol levels are recommended to be < 70 mg/dL Performed By: #### 3 3762-6, 40006-8, 3016-3, 99677-9 #### [facility] CLIA [id number] [address] [place] [address] [place] Cholesterol in LDL/Cholesterol in HDL [Mass ratio] 3.82 {ratio} High <2.54 [facility] Comment on above: Order Comment: Sally bonilla Type: BLOOD SPECIMEN Ordering Facility: [facility] Address: [address] [place] [address] Result Comment: Samy kumar: 1. National Cholesterol Education Program ATP III Guideline At-A-Glance Quick Desk Reference: National Heart, Lung, and Blood [place]. National Institutes of Health. 2001: NIH Publication No. 01-3305. 2. An International Atherosclerosis Society position paper: global recommendations for the management of dyslipidemia: executive summary, Atherosclerosis. 2014: 232(2):410-413. Performed By: #### 3 3762-6, 77862-1, 3016-3, 17240-0 #### [facility] CLIA [id number] [address] [place] [address] [place] Cholesterol in VLDL [Mass/Vol] 34 mg/dL High <30 [facility] Comment on above: Order Comment: Sally bonilla Type: BLOOD SPECIMEN Ordering Facility: [facility] Address: [address] [place] [address] Performed By: #### 3 3762-6, 13224-3, 3016-3, 22726-0 #### [facility] CLIA [id number] [address] [place] [address] [place] Cholesterol non HDL [Mass/Vol] 183 mg/dL High <130 [facility] Comment on above: Order Comment: Sally bonilla Type: BLOOD SPECIMEN Ordering Facility: [facility] Address: [address] [place] [address] Result Comment: <130 mg/dL, Optimal 130-159 mg/dL, Near optimal/above optimal 160-189 mg/dL, Borderline high 190-219 mg/dL, High >219 mg/dL, Very high Secondary prevention optimal non HDL Cholesterol levels are recommended to be <100 mg/dL Performed By: #### 3 3762-6, 23058-3, 3016-3, 99054-4 #### [facility] CLIA [id number] [address] [place] [address] [place] Cholesterol.total/Ch olesterol in HDL [Mass ratio] 5.69 {ratio} High <5.10 [facility] Comment on above: Order Comment: Sally bonilla Type: BLOOD SPECIMEN Ordering Facility: [facility] Address: [address] [place] [address] Performed By: #### 3 3762-6, 61716-0, 3016-3, 66336-1 #### [facility] CLIA [id number] [address] [place] [address] [place] FASTING TIME unknown Normal [facility] Comment on above: Order Comment: Speci men Type: BLOOD SPECIMEN Ordering Facility: [facility] Address: [address] [place] [address] Performed By: #### 3 3762-6, 63384-3, 6-3, 90782-3 #### [facility] CLIA [id number] [address] [place] [address] [place] Triglyceride [Mass/Vol] 168 mg/dL High <150 [facility] Comment on above: Order Comment: Speci men Type: BLOOD SPECIMEN Ordering Facility: [facility] Address: [address] [place] [address] Result Comment: <150 mg/dL, Normal 150-199 mg/dL, Borderline high 200-499 mg/dL, High >499 mg/dL, Very high Performed By: #### 3 3762-6, 69464-9, 6-3, 74052-5 #### [facility] CLIA [id number] [address] [place] [address] [place] NT-proBNP [facility] 11-18 Natriuretic peptide.B prohormone N-Terminal [Mass/Vol] 78 pg/mL Normal <125 [facility] Comment on above: Order Comment: Speci men Type: BLOOD SPECIMEN Ordering Facility: [facility] Address: [facility] [place] [address] Performed By: #### 3 3762-6, 86099-3, 3016-3, 94666-2 #### [facility] CLIA [id number] [address] [place] [address] [place] PSA/PROSTATE SPECIFIC ANTIGE N SCREENINGon 11-19-2023 Prostate specific Ag [Mass/Vol] 0.23 ng/mL Normal <2.60 [facility] Comment on above: Order Comment: Speci men Type: BLOOD SPECIMEN Ordering Facility: [facility] Address: [address] [place] [address] Result Comment: Tota l PSA test methodology used is the Electrochemiluminescence Immunoassay by [employer]. Total PSA values by differing methodologies cannot be interchanged. Performed By: #### 3 3762-6, 31273-9, 3016-3, 88571-3 #### [facility] CLIA [id number] [address] [place] [address] [place] TSH SerPl-aCncon 11-19-2023 TSH Qn 1.650 m[IU]/L Normal 0.270-4.200 [facility] Comment on above: Order Comment: Speci men Type: BLOOD SPECIMEN Ordering Facility: [facility] Address: [address] [place] [address] Performed By: #### 3 3762-6, 38225-6, 3016-3, 49089-9 #### [facility] CLIA [id number] [address] [place] [address] [place] CNOVon 11-18-2023 CNOV Office Visit (UCTR ) -- FLAKITO SAHNI ([id number]) 1970 M Date Time Provider Department 11/18/23 10:45 AM KATINA ABDUL [facility] During your visit today, we recorded the following information about you: Temperature Pulse Respiration Blood pressure 96.8 degrees 87/minute 16/minute 162/88 Weight 171 kg Katina Abdul APRN.SERVICE CONSULTANT 11/18/2023 11:13 AM Signed Subjective Patient came in with complaints of bilateral lower leg swelling. Patient says it has been on and off for about 2 weeks. Patient has not seen a primary care doctor in many years. Patient has untreated hypertension. Says he is noncompliant with treatments. Patient knows the risk factors. Patient says it is just time that he gets treatment. The history is provided by the patient. No technical sales director was used. Review of Systems Constitutional: Negative. Skin: Negative. Objective Physical Exam Constitutional: Appearance: Normal appearance. Pulmonary: Effort: Pulmonary effort is normal. Neurological: Mental Status: He is alert. PAST MEDICAL HISTORY No date: Fatty liver PAST SURGICAL HISTORY No date: NONE ALLERGIES Patient has no known allergies. MEDICATIONS doxycycline monohydrate 100 mg tablet Take 1 tablet by mouth two times a day for 5 days. cephALEXin (KEFLEX) 500 mg capsule Take 1 capsule by mouth four times daily for 5 days. Ibuprofen 200 mg cap Take by mouth as needed. (Patient not taking: Reported on 11/13/2023) DIPHENHYDRAMINE HCL (BENADRYL ORAL) Take by mouth as needed. (Patient not taking: Reported on 11/13/2023) FAMILY HISTORY Problem Relation Age of Onset Diabetes Father None Mother Social History Tobacco Use Smoking status: Never Smokeless tobacco: Never Substance Use Topics Alcohol use: Yes Drug use: No ASSESSMENT/PLAN: 1. Leg swelling - ICD9: 729.81, ICD10: M79.89 At this time patient was set up tomorrow with a primary care appointment. Patient was instructed that he should be seeing a primary care regularly and having follow-ups and taking medications as prescribed. Patient was okay with this care plan. Katina Abdul APRN.SERVICE CONSULTANT Allergies As of Date: 11/18/2023 (No Known Allergies) Date Reviewed: 11/18/2023 Reviewed by: Kenisha Franklin LPN - Fully Assessed Reason for Visit: bilateral leg swelling [Other] Cmt: X 2.5 weeks Primary Visit Diagnosis:Leg swelling [M79.89] Prescriptions as of 11/18/2023 - doxycycline monohydrate 100 mg tablet Take 1 tablet by mouth two times a day for 5 days. - cephALEXin (KEFLEX) 500 mg capsule Take 1 capsule by mouth four times daily for 5 days. - Ibuprofen 200 mg cap Take by mouth as needed. - DIPHENHYDRAMINE HCL (BENADRYL ORAL) Take by mouth as needed. Problem List As Of Date 11/18/2023 Noted Resolved Elevated Liver Enzymes [R74.8] 07/12/2009 Obesity, Class III, BMI 40-49.9 (morbid obesity*08/12/2017 Encounter Status:Closed by KATINA ABDUL on 11/18/23 [facility] CNOVon 11-13-2023 CNOV Office Visit (UCWSTR ) -- FLAKITO SAHNI ([id number]) 1970 M Date Time Provider Department 11/13/23 3:45 PM SHANIQUA CISNEROS [facility] During your visit today, we recorded the following information about you: Temperature Pulse Respiration Blood pressure 99.8 degrees 113/minute 18/minute 144/95 Weight 169.5 kg Shaniqua Cisneros APRN.SERVICE CONSULTANT 11/13/2023 3:54 PM Signed Subjective The history is provided by the patient. No technical sales director was used. HPI Flakito Sahni is a 53 year old male who presents today for CC of right lower leg redness of skin and swelling. He has not used any treatment or medications. He has a h/o venous insufficiency. States he had a fever last night. BP 144/95 Pulse 113 Temp 37.7 ?C (99.8 ?F) Resp 18 Wt (!) 169.5 kg (373 lb 10.9 oz) SpO2 97% BMI 50.68 kg/m? BP recheck 140/88 Social History Tobacco Use Smoking status: Never Smokeless tobacco: Never Substance Use Topics Alcohol use: Yes Drug use: No PAST MEDICAL HISTORY No date: Fatty liver I have confirmed and edited as necessary, the [facility] Review of Systems Constitutional: Negative for chills and fever. Musculoskeletal: Negative for joint pain and myalgias. Skin: Negative for itching and rash. Redness of right lower leg All other systems reviewed and are negative. Objective Physical Exam Vitals and nursing note reviewed. Pulmonary: Effort: Pulmonary effort is normal. Skin: General: Skin is warm and dry. Findings: Erythema present. Comments: Warm to touch, no fluctuant area. Neurological: Mental Status: He is alert and oriented to person, place, and time. Psychiatric: Mood and Affect: Affect normal. ASSESSMENT/PLAN: 1. Erythema of skin - ICD9: 695.9, ICD10: L53.9 Appears to be cellulitis Keflex/doxycyline as ordered Compression If starts streaking, need to go to ED for further evaluation and treatment BP was elevated, recommend to see pcp for management Diagnosis and treatment plan were discussed and questions were answered to the patient's satisfaction. Pt acknowledged understanding of concepts and follow up plan. Specific signs and symptoms that would indicate the need for higher level of care were discussed in detail warranting prompt ER evaluation. Shaniqua Cisneros APRN.SERVICE CONSULTANT Allergies As of Date: 11/13/2023 (No Known Allergies) Date Reviewed: 11/13/2023 Reviewed by: Linda Morales MA - Fully Assessed Reason for Visit: Cellulitis [488] Cmt: Bilateral lower legs x5 days Primary Visit Diagnosis:Erythema of skin [L53.9] Order(s):doxycycline monohydrate 100 mg tabletTake 1 tablet by mouth two times a day for 5 days.Disp: 10 tabletRfl: 0 cephALEXin (KEFLEX) 500 mg capsuleTake 1 capsule by mouth four times daily for 5 days.Disp: 20 capsuleRfl: 0 Prescriptions as of 11/13/2023 - doxycycline monohydrate 100 mg tablet Take 1 tablet by mouth two times a day for 5 days. - cephALEXin (KEFLEX) 500 mg capsule Take 1 capsule by mouth four times daily for 5 days. - Ibuprofen 200 mg cap Take by mouth as needed. - DIPHENHYDRAMINE HCL (BENADRYL ORAL) Take by mouth as needed. Problem List As Of Date 11/13/2023 Noted Resolved Elevated Liver Enzymes [R74.8] 07/12/2009 Obesity, Class III, BMI 40-49.9 (morbid obesity*08/12/2017 Prescriptions ordered this encounter Disp Refills Start End DOXYCYCLINE MONOHYDRATE 100 MG TABLET 10 t* 0 11/13/2023 11/18/2023 Route: ORAL Sig: Take 1 tablet by mouth two times a day for 5 days. CEPHALEXIN 500 MG CAPSULE 20 c* 0 11/13/2023 11/18/2023 Route: ORAL Sig: Take 1 capsule by mouth four times daily for 5 days. Encounter Status:Closed by SHANIQUA CISNEROS on 11/13/23 Normal [facility] Vital Signs Date Time Vital Sign Value Performing Clinician Facility 09-01-2024 13:13-0400 Body height 185.[address] Neda Avilez MD Work Phone: [facility] 09-01-2024 13:13-0400 Diastolic blood pressure 78 mm[Hg] Dr. Neda Avilez MD Work Phone: [facility] 09-01-2024 13:13-0400 Systolic blood pressure 122 mm[Hg] Dr. Neda Avilez MD Work Phone: [facility] 08-25-2024 16:31-0400 Diastolic blood pressure 96 mm[Hg] Dr. Neda Avilez MD Work Phone: [facility] 08-25-2024 16:31-0400 Systolic blood pressure 168 mm[Hg] Dr. Neda Avilez MD Work Phone: [facility] 08-25-2024 14:12-0400 Body height 185.[address] Neda Avilez MD Work Phone: [facility] 08-25-2024 14:12-0400 Body mass index (BMI) [Ratio] 51.4 kg/m2 Dr. Neda Avilez MD Work Phone: [facility] 08-25-2024 14:12-0400 Body temperature 97.4 [degF] Dr. Neda Avilez MD Work Phone: [facility] 08-25-2024 14:12-0400 Body weight 176.[address] Neda Avilez MD Work Phone: [facility] 08-25-2024 14:12-0400 Diastolic blood pressure 92 mm[Hg] Dr. Neda Avilez MD Work Phone: [facility] 08-25-2024 14:12-0400 Heart rate 82 /min Dr. Neda Avilez MD Work Phone: [facility] 08-25-2024 14:12-0400 Respiratory rate 16 /min Dr. Neda Avilez MD Work Phone: [facility] 08-25-2024 14:12-0400 SaO2% (BldA) [Mass fraction] 97 % Dr. Neda Avilez MD Work Phone: [facility] 08-25-2024 14:12-0400 Systolic blood pressure 176 mm[Hg] Dr. Neda Avilez MD Work Phone: [facility] 12-23-2023 13:29-0400 Diastolic blood pressure 80 mm[Hg] Abby Rosen MD Work Phone: [facility] 12-23-2023 13:29-0400 Systolic blood pressure 148 mm[Hg] Abby Rosen MD Work Phone: [facility] 12-23-2023 12:56-0400 Body height 182.9 cm Abby Rosen MD Work Phone: [facility] 12-23-2023 12:56-0400 Body mass index (BMI) [Ratio] 51.13 kg/m2 Abby Rosen MD Work Phone: [facility] 12-23-2023 12:56-0400 Body weight 171 kg Abby Rosen MD Work Phone: [facility] 12-23-2023 12:56-0400 Heart rate 72 /min Abby Roesn MD Work Phone: [facility] 12-23-2023 12:56-0400 SaO2% (BldA) [Mass fraction] 97 % Abby Rosen MD Work Phone: [facility] 11-19-2023 10:51-0400 Body height 182.9 cm Babar Corbin APRN.CNP Work Phone: [facility] 11-19-2023 10:51-0400 Body mass index (BMI) [Ratio] 50.53 kg/m2 Babar Corbin APRN.SERVICE CONSULTANT Work Phone: [facility] 11-19-2023 10:51-0400 Body weight 169 kg Babar Corbin APRN.SERVICE CONSULTANT Work Phone: [facility] 11-19-2023 10:51-0400 Diastolic blood pressure 112 mm[Hg] Babar Corbin AUXILIARY EQUIPMENT TENDER.SERVICE CONSULTANT Work Phone: [facility] 11-19-2023 10:51-0400 Heart rate 103 /min Babar Corbin APRN.SERVICE CONSULTANT Work Phone: [facility] 11-19-2023 10:51-0400 Systolic blood pressure 171 mm[Hg] Babar Corbin APRN.SERVICE CONSULTANT Work Phone: [facility] 11-18-2023 10:51-0400 Body mass index (BMI) [Ratio] 51.13 kg/m2 Katina Abdul APRN.SERVICE CONSULTANT Work Phone: [facility] 11-18-2023 10:51-0400 Body temperature 96.8 [degF] Katina Abdul APRN.SERVICE CONSULTANT Work Phone: [facility] 11-18-2023 10:51-0400 Body weight 171 kg Katina Abdul APRN.SERVICE CONSULTANT Work Phone: [facility] 11-18-2023 10:51-0400 Diastolic blood pressure 88 mm[Hg] Katina Abdul APRN.SERVICE CONSULTANT Work Phone: [facility] 11-18-2023 10:51-0400 Heart rate 87 /min Katina Abdul APRN.SERVICE CONSULTANT Work Phone: [facility] 11-18-2023 10:51-0400 Respiratory rate 16 /min Katina Abdul APRN.SERVICE CONSULTANT Work Phone: [facility] 11-18-2023 10:51-0400 SaO2% (BldA) [Mass fraction] 97 % Katina Abdul APRN.SERVICE CONSULTANT Work Phone: [facility] 11-18-2023 10:51-0400 Systolic blood pressure 162 mm[Hg] Katina Abdul AUXILIARY EQUIPMENT TENDER.SERVICE CONSULTANT Work Phone: [facility] 11-13-2023 15:35-0400 Body mass index (BMI) [Ratio] 50.68 kg/m2 Shaniqua Amelia AUXILIARY EQUIPMENT TENDER.SERVICE CONSULTANT Work Phone: [facility] 11-13-2023 15:35-0400 Body temperature 99.81 [degF] Shaniqua Cisneros AUXILIARY EQUIPMENT TENDER.SERVICE CONSULTANT Work Phone: [facility] 11-13-2023 15:35-0400 Body weight 169.5 kg Shaniqua Cisneros AUXILIARY EQUIPMENT TENDER.SERVICE CONSULTANT Work Phone: [facility] 11-13-2023 15:35-0400 Diastolic blood pressure 95 mm[Hg] Shaniqua Amelia AUXILIARY EQUIPMENT TENDER.SERVICE CONSULTANT Work Phone: [facility] 11-13-2023 15:35-0400 Heart rate 113 /min Shaniqua Cisneros AUXILIARY EQUIPMENT TENDER.SERVICE CONSULTANT Work Phone: [facility] 11-13-2023 15:35-0400 Respiratory rate 18 /min Shaniqua Amelia AUXILIARY EQUIPMENT TENDER.SERVICE CONSULTANT Work Phone: [facility] 11-13-2023 15:35-0400 SaO2% (BldA) [Mass fraction] 97 % Shaniqua Cisneros AUXILIARY EQUIPMENT TENDER.SERVICE CONSULTANT Work Phone: [facility] 11-13-2023 15:35-0400 Systolic blood pressure 144 mm[Hg] Shaniqua Cisneros AUXILIARY EQUIPMENT TENDER.SERVICE CONSULTANT Work Phone: [facility] Encounters Encounter Date Encounter Type Care Provider Facility Start: 10-13-2024 ambulatory Neda Avilez Facility :[facility] Start: 09-15-2024 End: 09-15-[address] Neda Avilez MD Work Phone: [facility] Start: 09-15-2024 End: 09-15-[address] Neda Avilez MD -[facility] Work Phone: Start: 09-15-2024 End: 09-15-2024 ambulatory eNda Avilez Facility:[facility] Start: 09-01-2024 End: 09-01-2024 Patient encounter procedure BIM NURSE -[facility] Work Phone: Start: 09-01-2024 End: 09-01-[address] Neda Avilez MD Work Phone: [facility] Work Phone: Start: 08-25-2024 End: 08-25-[address] Neda Avilez MD Work Phone: [facility] Work Phone: Start: 08-25-2024 End: 08-25-2024 Patient encounter procedure Dr. Neda Avilez MD -Laboratory [facility] Start: 08-25-2024 End: 08-25-[address] Neda Avilez MD -[facility] Work Phone: Start: 08-25-2024 End: 08-25-[address] Neda Avilez MD Work Phone: [facility] Work Phone: Start: 08-25-2024 End: 08-25-2024 ambulatory Neda Avilez Facility:[facility] Start: 03-08-2024 End: 03-08-2024 Telephone encounter Hank Cabrera MD Work Phone: Endocrinology Start: 12-29-2023 End: 12-30-2023 Telephone encounter Hank Cabrera MD Work Phone: Endocrinology Comment on above: Medication Problem Start: 12-26-2023 End: 12-29-2023 Refill Hank Cabrera MD Work Phone: Endocrinology Comment on above: Med Change Request Start: 12-25-2023 End: 12-25-2023 ambulatory Hank Cabrera MD Work Phone: Endocrinology Comment on above: Morbid obesity with BMI of 50.0-59.9, adult (HCC); Fatty liver Start: 12-25-2023 End: 12-25-2023 Telemedicine consultation with patient Hank Cabrera MD Work Phone: Endocrinology Start: 12-23-2023 End: 12-23-2023 ambulatory [facility] Facility:[facility] Start: 12-23-2023 End: 12-23-2023 Initial preventive medicine new patient 40-64yrs Abby Rosen MD Work Phone: [facility] Comment on above: Encounter for medica l examination to establish care (Primary Dx); Screening for depression; Encounter for screening examination for other mental health and behavioral disorders; Morbid obesity with BMI of 50.0-59.9, adult (HCC); Fatty liver; Right flank pain Start: 12-23-2023 End: 12-23-2023 Patient encounter status Abby Rosen MD Work Phone: [facility] Work Phone: Start: 11-19-2023 End: 11-19-2023 [facility] Facility:[facility] Start: 11-19-2023 End: 11-19-2023 Office outpatient new 30 minutes Babar Corbin APRN.SERVICE CONSULTANT Work Phone: [facility] Comment on above: Primary hypertension (Primary Dx); Bilateral leg edema; STRANGE (dyspnea on exertion); Morbid obesity with BMI of 50.0-59.9, adult (HCC); Hyperlipidemia, mixed; Screening for HIV (human immunodeficiency virus); Need for hepatitis C screening test; Screening for prostate cancer; Screening for diabetes mellitus Start: 11-18-2023 End: 11-18-2023 [facility] Facility:[facility] Start: 11-18-2023 End: 11-18-2023 Patient encounter procedure Katina Abdul APRN.CNP Work Phone: [facility] Comment on above: Leg swelling (Primar y Dx) Start: 11-13-2023 End: 11-13-2023 ambulatory [facility] Facility:[facility] Start: 11-13-2023 End: 11-13-2023 Patient encounter procedure Shaniqua Cisneros APRN.CNP Work Phone: [facility] Comment on above: Erythema of skin (Pr imary Dx) Procedures Date Procedure Procedure Detail Performing Clinician Start: 12-23-2023 Adult depression screening assessment Abby Rosen MD Work Phone: Start: 11-19-2023 Ecg routine ecg w/le ast 12 lds i&r only [facility] Provider Start: 11-19-2023 Lipid 1996 panel - S ronn or Plasma Abby Rosen MD Work Phone: Start: 04-30-2012 Lipid 1996 panel - S ronn or Plasma Shaniqua Cisneros APRN.CNP Work Phone: Plan of Treatment Date Care Activity Detail Author Start: 03-28-2032 Urine microalbumin profile DTaP,Tdap,Td Vaccine (2 - Td or Tdap) [facility] Start: 11-18-2028 Lipid panel Lipid Screening [facility] Start: 11-18-2026 Diabetes Screening Diabetes Screening [facility] Start: 12-22-2024 Anxiety Screening Anxiety Screening [facility] Start: 12-22-2024 Depression Screening Depression Screening [facility] Start: 09-15-2024 Polysomnography [facility] Start: 08-25-2024 Comprehensive metabolic 2000 panel - Serum or Plasma [facility] Start: 04-21-2024 End: 04-21-2024 Follow-up encounter 04/21/2024 10:20 AM EST [facility] Endocrinology [address] [place] [address] Hank Cabrera MD [address] [place] [address] Follow Up-ok to make establish slot per [facility] Comment on above: Follow Up-ok to make establish slot per [facility] Start: 03-31-2024 End: 03-31-2024 Patient encounter procedure 03/31/2024 12:20 PM EST Office Visit [facility] [place] [address] [place] [address] Juan Ramon Crews MD [address] [place] [address] (EST CARE WITH A PCP) [facility] Comment on above: (EST CARE WITH A PCP) Start: 01-21-2024 End: 01-21-2024 Patient encounter procedure 01/21/2024 8:40 AM EST Office Visit Endocrinology [address] [place] [address] Hank Cabrera MD [address] [place] [address] Follow Up-ok to make establish slot per [facility] Comment on above: Follow Up-ok to make establish slot per [facility] Start: 12-25-2023 End: 12-25-2023 ambulatory 12/25/2023 10:00 AM EDT [facility] Endocrinology [address] [place] [address] Hank Cabrera MD [address] [place] [address] Morbid obesity with BMI of 50.0-59.9, adult (HCC) [E66.01, Z68.43]; Fatty liver [K76.0] Endocrinology Comment on above: Morbid obesity with BMI of 50.0-59.9, ad ult (HCC) [E66.01, Z68.43]; Fatty liver [K76.0] Start: 12-23-2023 End: 12-23-2023 Patient encounter procedure 12/23/2023 1:00 PM EDT Office Visit Family Practice [address] [place] [address] [address] [place], [place] [address] Abby Rosen MD [address] [facility] [address] [place], [place] [id number] establish care Family [facility] Comment on above: establish care Start: 11-19-2023 End: 11-19-2023 Patient encounter procedure 11/19/2023 11:00 AM EDT Office Visit [facility] [address] [facility] [address] [place], [place] [id number] Babar Corbin, DI.SERVICE CONSULTANT [address] [facility] [place] [address] [facility] Comment on above: [facility] Start: 11-15-2023 Covid-19 Vaccine ( season) Covid-19 Vaccine ( season) [facility] Start: 11-15-2023 Covid-19 Vaccine () Covid-19 Vaccine () [facility] Start: 11-15-2023 Influenza vaccination Influenza Vaccine (#1) [facility] Start: 11-14-2022 Covid-19 Vaccine ( season) Covid-19 Vaccine () [facility] Start: 08-28-2021 Pneumococcal Vaccine: 50+ (1 of 1 - PCV) Pneumococcal Vaccine: 50+ (1 of 1 - PCV) [facility] Start: 08-28-2021 Shingrix Vaccine (1 of 2) Shingrix Vaccine (1 of 2) [facility] Start: 04-30-2017 Lipid panel Lipid Screening [facility] Start: 08-28-2016 Diabetes Screening Diabetes Screening [facility] Start: 08-28-2016 Screening for malignant neoplasm of colon [facility] Start: 08-28-1990 Hepatitis B Vaccine (1 of 3 - 19+ 3-dose series) Hepatitis B Vaccine (1 of 3 - 19+ 3-dose series) [facility] Start: 08-28-1989 Anxiety Screening Anxiety Screening [facility] Start: 08-28-1989 Depression Screening Depression Screening [facility] Start: 08-28-1989 HIV screening HIV Screening [facility] Alanine aminotransfe rase [Enzymatic activity/volume] in Serum or Plasma [facility] Albumin [Mass/volume ] in Serum or Plasma [facility] Alkaline phosphatase [Enzymatic activity/volume] in Serum or Plasma [facility] Anion gap in Serum o r Plasma [facility] Bilirubin, total measurement [facility] BUN/Creatinine ratio [facility] Calcium [Mass/volume ] in Serum or Plasma [facility] Carbon dioxide, tota l [Moles/volume] in Central venous blood [facility] CBC panel - Blood by Automated count COMPLETE BLOOD COUNT Lab Routine Primary hypertension Ordered: 11/19/2023 [facility] Work Phone: Comment on above: Ordered: 11/19/2023 Comprehensive metabo lic 2000 panel - Serum or Plasma COMPREHENSIVE METABOLIC PANEL Lab Routine Primary hypertension Ordered: 11/19/2023 [facility] Comment on above: Ordered: 11/19/2023 Creatinine [Mass/vol ume] in Serum or Plasma [facility] ECG COMPLETE [facility] Comment on above: Ordered: 11/19/2023 Glucose [Mass/volume ] in Serum or Plasma [facility] Hemoglobin A1c in Blood HEMOGLOB IN A1C Lab Routine Screening for diabetes mellitus Ordered: 11/19/2023 [facility] Comment on above: Ordered: 11/19/2023 Hepatitis C virus Ab [Presence] in Serum HEPATITIS C ANTIBODY IA WITH CONFIRMATION Lab Routine Need for hepatitis C screening test Ordered: 11/19/2023 [facility] Comment on above: Ordered: 11/19/2023 HIV 1+2 Ab [Presence ] in Serum or Plasma by Immunoassay HIV 1/2 COMBO WITH REFLEX TO DIFFERENTIATION Lab Routine Screening for HIV (human immunodeficiency virus) Ordered: 11/19/2023 [facility] Comment on above: Ordered: 11/19/2023 Lipid 1996 panel - S ronn or Plasma LIPID PANEL BASIC Lab Routine Hyperlipidemia, mixed Ordered: 11/19/2023 [facility] Comment on above: Ordered: 11/19/2023 Measurement of renal function [facility] Natriuretic peptide. B prohormone N-Terminal [Mass/volume] in Serum or Plasma NT PRO BNP Lab Routine Bilateral leg edema Ordered: 11/19/2023 [facility] Comment on above: Ordered: 11/19/2023 Polysomnography [facility] Potassium measurement [facility] PSA/PROSTATE SPECIFI C ANTIGEN SCREENING PSA/PROSTATE SPECIFIC ANTIGEN SCREENING Lab Routine Screening for prostate cancer Ordered: 11/19/2023 [facility] Comment on above: Ordered: 11/19/2023 Serum chloride measurement [facility] Sodium measurement [facility] Thyrotropin [Units/volume] in Serum or Plasma THYROID STIMULATING HORMONE Lab Routine Morbid obesity with BMI of 50.0-59.9, adult (HCC) Ordered: 11/19/2023 [facility] Comment on above: Ordered: 11/19/2023 Total protein measurement [facility] Urea nitrogen [Mass/volume] in Serum or Plasma [facility] Immunizations Immunization Date Immunization Notes Care Provider Kim molina 01-19-2024 influenza, seasonal, injectable, preservative free Dr. 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 01-08-2023 influenza virus vaccine, unspecified formulation Shaniqua Amelia AUXILIARY EQUIPMENT TENDER.SERVICE CONSULTANT Work Phone: [facility] 03-28-2022 tetanus toxoid, redu ramone diphtheria toxoid, and acellular pertussis vaccine, adsorbed Babar Temi AUXILIARY EQUIPMENT TENDER.SERVICE CONSULTANT Work Phone: [facility] 01-23-2022 influenza, injectabl e, quadrivalent, preservative free Babar Temi AUXILIARY EQUIPMENT TENDER.SERVICE CONSULTANT Work Phone: [facility] 04-13-2020 Covid (Moderna) Dr. Neda de dios MD Work Phone: [facility] 03-14-2020 Covid (Moderna) Dr. Neda de dios MD Work Phone: [facility] 01-11-2014 influenza virus vaccine, unspecified formulation Shaniqua Amelia AUXILIARY EQUIPMENT TENDER.SERVICE CONSULTANT Work Phone: [facility] Payers Date Payer Category Payer Unknown [id number] 2024 Self-pay 2023 Private Health Insurance [employer] [id number] 2023-Present [phone] [address] [place] [address] O [id number] 2023 Unknown [id number] Unknown [id number] Unknown [id number] Unknown [id number] Unknown [id number] Unknown [id number] Unknown [id number] Social History Date Type Detail Facility Start: 11-13-2023 End: 08-25-2024 Tobacco smoking status NHIS Never smoked tobacco [facility] Start: 11-13-2023 Tobacco use and exposure Smoke less tobacco non-user [facility] Start: 11-13-2023 End: 12-23-2023 Alcoholic beverage intake Current drinker of alcohol (finding) [facility] Start: 11-13-2023 End: 11-18-2023 History of [address] function [facility] Start: 11-13-2023 End: 11-18-[address] [facility] National Score (1-10 0), lower number is lower risk Not on file [facility] Start: 1970 Sex assigned at Male [facility] Start: 11-06-2023 Gender identity Identifies as male gender (finding) [facility] Start: 11-06-2023 Sexual orientation Heterosexual (nathanael berkowitz) [facility] Has the [employer], or [employer] threatened to shut off services in your home in past 12Mo No [facility] Are you now , , , , never or living with a partner? [facility] How often to you hav e a drink containing alcohol? 2-[address] [facility] How many standard dr inks containing alcohol do you have on a typical day? [address] [facility] How often do you hav e 6 or more drinks on 1 occasion? Less than monthly [facility] Do you feel stress - tense, restless, nervous, or anxious, or unable to sleep at night because your mind is troubled all the time - these days [OSQ] To some extent [facility] (I/We) worried whefozia er (my/our) food would run out before (I/we) got money to buy more. Never true [facility] Clinical Notes 11-13-2023 to 08-25-2024 Note Date & Type Note Facility 08-25-2024 Evaluation note Diagnosis Onset Date Resolution Essential hypertension acute 2024 1:46pm Prediabetes acute August 25 1:46pm Screening for depression noneactive August 25, 2024 1:46pm Herpes zoster vaccination declined noneactive August 25, 2024 1:46pm Screening for colon cancer noneactive August 25, 2024 1:46pm Overuse of medication noneactive Aug 1:46pm Establishing care with new doctor, encounter for noneactive August 25, 2024 1:46pm Chronic low back pain noneactive Aug 1:46pm Steatosis of liver noneactive August 142024 1:46pm Leg swelling noneactive August 25 1:46pm Suspected sleep apnea noneactive Aug 1:46pm Morbid obesity with BMI of 50.0-59.9, adult noneactive August 25 1:46pm [facility] Work Phone: [phone]) 830-179906-12-2025 Evaluation note* Diagnosis Onset Date Resolution Status Admit Date Essential hypertension acute 2024 1:46pm Prediabetes acute August 25 1:46pm Screening for depression noneactive August 25, 2024 1:46pm Herpes zoster vaccination declined noneactive August 25, 2024 1:46pm Screening for colon cancer noneactiv August 25, 2024 1:46pm Overuse of medication noneactive Aug 1:46pm Establishing care with new doctor, encounter for noneactive August 25, 2024 1:46pm Chronic low back pain noneactive Aug 1:46pm Steatosis of liver noneactive August 142024 1:46pm Leg swelling noneactive August 25 025 1:46pm Suspected sleep apnea noneactive Aug 1:46pm Morbid obesity with BMI of 50.0-59.9, adult noneactive August 25, 2024 1:46pm Essential hypertension acute [facility] 2024 12:54pm [facility] Work Phone: [phone]) 342-356612-24-2024 Miscellaneous Notes* Telephone Encounter - Saman Gunderson - 03/08/2024 11:16 AM EST Left VM about appointment changing to virtual instead of in person. [facility] Telephone encounter Note * Telephone Encounter - Saman Gunderson - 03/08/2024 11:16 AM EST Left VM about appointment changing to virtual instead of in person. [facility]10-15-2024 Telephone encounter Note* Telephone Encounter - Paradise Larry - 12/29/2023 12:43 PM EDT [facility] pharmacy called about metFORMIN ER (GLUCOPHAGE XR) 500 mg 24 hr tablet instructions. Current instructions: Take 2 tablets by mouth daily with dinner for 7 days, THEN 2 tablets daily with dinner. Please send new prescription with updated information. 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10-15-2024 Miscellaneous Notes* Telephone Encounter - Paradise Larry - 12/29/2023 12:43 PM EDT [facility] pharmacy called about metFORMIN ER (GLUCOPHAGE XR) 500 mg 24 hr tablet instructions. Current instructions: Take 2 tablets by mouth daily with dinner for 7 days, THEN 2 tablets daily with dinner. Please send new prescription with updated information. Paradise Larry Repairer [employer] Endocrinology [facility] X-20, F-20 documented [facility]24 Telephone encounter Note * Telephone Encounter - Umm Howell MA - 12/28/2023 8:39 AM EDT Requester: Pharmacy Patients last Endocrinology visit occurred 12/24/22. Follow-up evaluation has been established Upcoming Endocrinology Appointments - Next 365 Days No appointments to display . Requested Prescriptions Pending Prescriptions Disp Refills metFORMIN ER (GLUCOPHAGE XR) 500 mg 24 hr tablet [Pharmacy Med Name: METFORMIN HCL ER 500 MG TABLET] 194 tablet 0 Sig: TAKE 2 TABLETS BY MOUTH ONCE DAILY WITH DINNER FOR 7 DAYS, THEN 2 TABLETS ONCE DAILY WITH DINNER If patient is due for an appointment please route to provider for refill consideration and also to the endo scheduling pool. PSS NOTE: Patient needs scheduled appointment No [facility]10-14-2024 Miscellaneous Notes* Telephone Encounter - Umm Howell MA - 12/28/2023 8:39 AM EDT Requester: Pharmacy Patients last Endocrinology visit occurred 12/24/22. Follow-up evaluation has been established Upcoming Endocrinology Appointments - Next 365 Days No appointments to display . Requested Prescriptions Pending Prescriptions Disp Refills metFORMIN ER (GLUCOPHAGE XR) 500 mg 24 hr tablet [Pharmacy Med Name: METFORMIN HCL ER 500 MG TABLET] 194 tablet 0 Sig: TAKE 2 TABLETS BY MOUTH ONCE DAILY WITH DINNER FOR 7 DAYS, THEN 2 TABLETS ONCE DAILY WITH DINNER If patient is due for an appointment please route to provider for refill consideration and also to the endo scheduling pool. PSS NOTE: Patient needs scheduled appointment No documented in this encounterSt[facility]10-[facility]-2024 NoteHNO ID: [id number] Author: HAKN CABRERA MD Service: ? Author Type: Physician Type: Progress Notes Filed: 12/25/2023 10:51 Note Text: [facility] CONSULT - NEW VISIT I have communicated my name and active licensure. The patient's identity and physical location were verified at the time of this visit. Either the patient or their legal customer service representative has been informed of the risks and benefits of -- and alternatives to -- treatment through a remote evaluation and consents to proceed with the evaluation remotely. REASON OF VISIT: weight management/obesity and management of its comorbidities REFERRING PHYSICIAN: Abby Rosen Consultation requested for an opinion regarding weight management, and my final recommendations will be communicated back to the requesting physician by way of shared medical record or letter via [place] mail. HISTORY OF PRESENT ILLNESS: Age: [age] year old obesity class 3 BMI 51.13 kg/m2 Lower leg edema, HTN on hygroton and losartan, elevated liver enzymes, back pain Patient comes today for evaluation and weight management. Pertinent medications causing weight loss/weight gain: NA Patient goals: 250 lbs WEIGHT HISTORY: Gradual weight gain over years. Previous attempt for weight loss: calorie deficit diet exercise Maximum weight lost: 70 lbs Current weight: 376.99 lbs Lifestyle Factors Diet and Eating behaviors Does patient have a healthy diet? 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 -- Poor quality, unrestful sleep: n Stress -- manageable Functional Status: independent Other pertinent Comorbidities -- Prior Weight Loss Surgery: n -- GERD: n -- Fatty liver disease: y -- Hernia: n -- Arthritis/joint pain: y -- Diabetes: preDM -- Hypothyroidism: n -- PCOS: n -- Gabriele: n - Social History Alcohol: n Smoking: Tobacco Use: Never Patient Entered Data 11/18/2023 PROMIS 10 Health, in general Fair Quality of life, in general Very good Physical health, in general Fair Mental health, in general Good Social activities satisfaction Good Performing ADL's Mostly Social role satisfaction Good Pain, on average 3 Fatigue, on average Moderate Emotional problems Sometimes PHYSICAL Score 42.3 (Good) MENTAL Score 45.8 (Good) No data to display No data to display No data to display No data to display No data to display No data to display Review of Systems MEDICATIONS: Current Outpatient Medications on File Prior to Visit Medication Sig chlorthalidone (HYGROTON) 25 mg tablet Take 1 tablet by mouth once daily. irbesartan (AVAPRO) 300 mg tablet Take 1 tablet by mouth daily at bedtime. Ibuprofen 200 mg cap Take by mouth as needed. DIPHENHYDRAMINE HCL (BENADRYL ORAL) Take by mouth as needed. No current facility-administered medications on file prior to visit. SIGNIFICANT PAST MEDICAL AND SURGICAL HISTORY: PAST MEDICAL HISTORY Diagnosis Date Fatty liver PAST SURGICAL HISTORY Procedure Laterality Date NONE FAMILY HISTORY: FAMILY HISTORY Problem Relation Age of Onset Diabetes Father None Mother SOCIAL HISTORY: Social History Tobacco Use Smoking status: Never Smokeless tobacco: Never Substance Use Topics Alcohol use: Yes Drug use: No PHYSICAL EXAM: Flakito Sahni is a 53 year old year old male who looks his stated age. Vital Signs There were no vitals taken for this visit. General: no acute distress, feeling well Neurologic: alert and oriented to time, space and place Psychiatry: normal affect PERTINENT LABORATORY AND IMAGING: All pertinent laboratory results were reviewed. Please see HPI for further details. Lab Results Component Value Date HBA1C 6.0 (H) 11/19/2023 HBA0 126 11/19/2023 TSH 1.650 11/19/2023 TSH 1.480 04/30/2012 Lab Results Component Value Date TPROT 7.5 11/19/2023 TPROT 7.9 04/30/2012 ALB 4.3 11/19/2023 ALB 4.4 04/30/2012 CA 10.2 11/19/2023 CA 9.6 04/30/2012 TBILI 0.5 11/19/2023 TBILI 0.5 04/30/2012 ALKPHOS 89 11/19/2023 ALKPHOS 77 04/30/2012 AST 89 (H) 11/19/2023 AST 25 04/30/2012 ALT 114 (H) 11/19/2023 ALT 40 04/30/2012 GLUC 98 11/19/2023 GLUC 87 04/30/2012 BUN 11 11/19/2023 BUN 14 04/30/2012 CREAT 0.82 11/19/2023 CREAT 0.80 04/30/2012 NA 138 11/19/2023 NA 138 04/30/2012 K 4.3 11/19/2023 K 3.9 04/30/2012 CHLOR 100 11/19/2023 CHLOR 102 04/30/2012 CO2 25 11/19/2023 CO2 24 04/30/19 (more content not included)...[facility] 12-25-2023 History of Present illness Narrative* Hank Cabrera MD - 12/25/2023 10:10 AM EDT Images from the original note were not included. [facility] CONSULT - NEW VISIT I have communicated my name and active licensure. The patient's identity and physical location wereverified at the time of this visit. Either the patient or their legal customer service representative has been informed of the risks and benefits of -- and alternatives to -- treatment through a remote evaluation andconsents to proceed with the evaluation remotely. REASON OF VISIT: weight management/obesity and management of its comorbidities REFERRING PHYSICIAN: Abby Rosen Consultation requested for an opinion regarding weight management, and my final recommendations will be communicated back to the requesting physician by way of shared medical record or letter via US mail. HISTORY OF PRESENT ILLNESS: Age: [age] year old obesity class 3 BMI 51.13 kg/m2 Lower leg edema, HTN on hygroton and losartan, elevated liver enzymes, back pain Patient comes today for evaluation and weight management. Pertinent medications causing weight loss/weight gain: NA Patient goals: 250 lbs WEIGHT HISTORY: Gradual weight gain over years. Previous attempt for weight loss: calorie deficit diet exercise Maximum weight lost: 70 lbs Current weight: 376.99 lbs Lifestyle Factors Diet and Eating behaviors Does patient have a healthy diet? 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 -- Poor quality, unrestful sleep: n Stress -- manageable Functional Status: independent Other pertinent Comorbidities -- Prior Weight Loss Surgery: n -- GERD: n -- Fatty liver disease: y -- Hernia: n -- Arthritis/joint pain: y -- Diabetes: preDM -- Hypothyroidism: n -- PCOS: n -- Gabriele: n - Social History Alcohol: n Smoking: Tobacco Use: Never Patient Entered Data 11/18/2023 PROMIS 10 Health, in general Fair Quality of life, in general Very good Physical health, in general Fair Mental health, in general Good Social activities satisfaction Good Performing ADL's Mostly Social role satisfaction Good Pain, on average 3 Fatigue, on average Moderate Emotional problems Sometimes PHYSICAL Score 42.3 (Good) MENTAL Score 45.8 (Good) No data to display No data to display No data to display No data to display No data to display No data to display Review of Systems MEDICATIONS: Current Outpatient Medications on File Prior to Visit Medication Sig chlorthalidone (HYGROTON) 25 mg tablet Take 1 tablet by mouth once daily. irbesartan (AVAPRO) 300 mg tablet Take 1 tablet by mouth daily at bedtime. Ibuprofen 200 mg cap Take by mouth as needed. DIPHENHYDRAMINE HCL (BENADRYL ORAL) Take by mouth as needed. No current facility-administered medications on file prior to visit. SIGNIFICANT PAST MEDICAL AND SURGICAL HISTORY: PAST MEDICAL HISTORY Diagnosis Date Fatty liver PAST SURGICAL HISTORY Procedure Laterality Date NONE FAMILY HISTORY: FAMILY HISTORY Problem Relation Age of Onset Diabetes Father None Mother SOCIAL HISTORY: Social History Tobacco Use Smoking status: Never Smokeless tobacco: Never Substance Use Topics Alcohol use: Yes Drug use: No PHYSICAL EXAM: Flakito Sahni is a 53 year old year old male who looks his stated age. Vital Signs There were no vitals taken for this visit. General: no acute distress, feeling well Neurologic: alert and oriented to time, space and place Psychiatry: normal affect PERTINENT LABORATORY AND IMAGING: All pertinent laboratory results were reviewed. Please see HPI for further details. Lab Results Component Value Date HBA1C 6.0 (H) 11/19/2023 HBA0 126 11/19/2023 TSH 1.650 11/19/2023 TSH 1.480 04/30/2012 Lab Results Component Value Date TPROT 7.5 11/19/2023 TPROT 7.9 04/30/2012 ALB 4.3 11/19/2023 ALB 4.4 04/30/2012 CA 10.2 11/19/2023 CA 9.6 04/30/2012 TBILI 0.5 11/19/2023 TBILI 0.5 04/30/2012 ALKPHOS 89 11/19/2023 ALKPHOS 77 04/30/2012 AST 89 (H) 11/19/2023 AST 25 04/30/2012 ALT 114 (H) 11/19/2023 ALT 40 04/30/2012 GLUC 98 11/19/2023 GLUC 87 04/30/2012 BUN 11 11/19/2023 BUN 14 04/30/2012 CREAT 0.82 11/19/2023 CREAT 0.80 04/30/2012 NA 138 11/19/2023 NA 138 04/30/2012 K 4.3 11/19/2023 K 3.9 04/30/2012 CHLOR 100 11/19/2023 CHLOR 102 04/30/2012 CO2 25 11/19/2023 CO2 24 04/30/2012 ANION 13 11/19/2023 ANION 12 04/30/2012 EGFROTH 106 11/19/2023 EGFROTH >60 04/30/2012 Lab Results Component Value Date CHOL 222 (H) 11/19/2023 CHOL 197 04/30/2012 TG 168 (H) 11/19/2023 TG 86 04/30/2012 HDL 39 (L) 11/19/2023 HDL 39 (L) 04/30/2012 NONHDL 183 (H) 11/19/2023 NONHDL 158 04/30/2012 FASTTIME unknown 11/19/2023 FASTTIME FASTING 04/30/2012 VLDL 34 (H) 11/19/2023 VLDL 17 04/30/2012 TCHDL 5.69 (H) 11/19/2023 TCHDL 5.05 (H) 04/30/2012 LDL 149 (H) 11/19/2023 LDL 141 (H) 04/30/2012 LDL 131 (H) 02/13/2010 LDLHDL 3.82 (H) 11/19/2023 LDLHDL 3.62 (H) 04/30/2012 IMPRESSION/PLAN: Encounter Diagnosis ICD-10-CM 1. Morbid obesity with BMI of 50.0-59.9, adult (HCC) E66.01 ENDOCRINOLOGY DIETITIAN VISIT (MNT) Z68.43 CONSULT WEIGHT MANAGEMENT FITNESS PROGRAM CONSULT TO ENDOCRINE PSYCHOLOGY (WEIGHT MANAGEMENT) metFORMIN ER (GLUCOPHAGE XR) 500 mg 24 hr tablet 2. Fatty liver K76.0 metFORMIN ER (GLUCOPHAGE XR) 500 mg 24 hr tablet Patient comes today for evaluation and weight management and its comorbidities. Patient has OBESITYCLASS 3 with a BMI of 51. Patient tried different weight loss modalities in the past including dieting. Unstructured meal schedule, BED on the off day, added sugar limited exercise Pertinent comorbidities include: Lower leg edema, HTN on hygroton and losartan, elevated liver enzymes, back pain. Patient quality of life is compromised due to current weight and patient is motivated for weight loss. Our goal is to treat obesity to decrease long-term medical complications, comorbidities and improvelifestyle. I discussed with the patient the possibility of starting an interdisciplinary lifestyle intervention-weight loss program involving improvement of diet, a personalized exercise program and also consider the possibility of using medications to control patient appetite. Plan -- Reviewed principles of energy metabolism, caloric intake and expenditure. Discussed weight plateau, set point and the physiology of weight loss/gain. -- Goals: -- 5-10% weight loss over 6 months is reasonable -- At least 6-month commitment to losing weight -- Lifestyle changes -- Changing eating, sleeping and behavior habits -- Diet -- to see dietitian to discuss nutrition and behavior changes -- Patient will discuss in detail with our dietitian team the best approach and the best nutritional plan - Eat 3 mindful meals per day. Include fiber (veggies) and lean protein with each meal. Fiber and protein will help you feel garcias longer. Strive for at least 50% of your plate to be plant-based fiber. -- behavior changes- start to have more structured meal -- Appetite control: -- I have also reviewed with the patient the possibility of using weight loss medications in an effort to reduce his appetite. -- I have reviewed the different therapeutic options available including phentermine, phentermine/topiramate, buproprion/naltrexone, and GLP-1 agonists -- Metformin ER: The most common side effect is abdominal discomfort---gas, possibly more frequent bowel movements or loose bowel movements. Many times this side effect goes away within a few days. If the bowel side effect does not go away, please call the office. Stop metformin for any acute illness (for example, pneumonia and any condition requires hospitalization until medically evaluated). Also, should hold the medication for at least 48 hours (and until ablood creatinine is repeated and confirmed to be normal) after administration of iodine-containing contrast such as CT-scan with contrast or an angiogram. -- Exercise -- discussed basic exercise recommendations, the role of exercise on weight loss and maintenance. Discussed the combination of aerobic and resistance exercise. -- We recommend 150 minutes of moderate-intensity aerobic physical activity and 2 days of muscle strengthening activity, as you can tolerate it. Please refer the CDC website for examples of moderate-intensity activities. https://www.cdc.gov/physicalactivity/basics/adults/index.htm -- Sleep: -- discussed the importance of sleep hygiene -- Stress: -- discussed the effect of stress and its relationship with weight gain. Stress management is very important -- Weight Loss medication consideration: -- Wegovy - will consider once we re-establish more structured meal schedule Check contraindications -- Bariatric consideration: -- n -- Follow up: -- 1 months -- Share medical appointment consideration: -- n -- Other pertinent medical comorbidities -- -- Order placed Medications to Start Taking None Orders Placed This Encounter ENDOCRINOLOGY DIETITIAN VISIT (MNT) Standing Status: Future Standing Expiration Date: 12/24/2024 Scheduling Instructions: Appointment type requested: General nutrition education This order is valid for 12 months from the date of order. PLEASE SCHEDULE THIS VISIT IN YOUR [employer] ACCOUNT, OR CALL TO SCHEDULE FOLLOWS: [facility] [phone] ALL OTHER [facility] LOCATIONS [phone] Order Specific Question: Does consulting provider have [facility] Epic access? Answer: Yes CONSULT WEIGHT MANAGEMENT FITNESS PROGRAM Standing Status: Future Standing Expiration Date: 12/24/2024 Order Specific Question: Does consulting provider have [facility] Epic access? Answer: Yes CONSULT TO ENDOCRINE PSYCHOLOGY (WEIGHT MANAGEMENT) Order Specific Question: Does consulting provider have [facility] Epic access? Answer: Yes metFORMIN ER (GLUCOPHAGE XR) 500 mg 24 hr tablet Sig: Take 2 tablets by mouth daily with dinner for 7 days, THEN 2 tablets daily with dinner. Dispense: 194 tablet Refill: 0 -- OTHER MEDICAL PROBLEMS/ISSUES Patient to continue to follow up with their Primary Care Provider and with other consultants regarding their other medical problems. All questions answered today. Hank Cabrera MD, MPP, MPH Endocrinology and Metabolism [facility] Medical Decision Making: Problems: Moderate: 2+ stable chronic illnesses Data: Assessment requiring an independent historian(s) Risk: Moderate: Moderate risk from testing/treatment Medical Decision Making Level: 4 - Moderate documented in [facility] NoteHNO ID: [id number] Author: ABBY ROSEN MD Service: ? Author Type: Physician Type: Progress Notes Filed: 12/23/2023 15:46 Note Text: CHIEF COMPLAINT Patient presents with: Establish Care HISTORY OF PRESENT ILLNESS Flakito Sahni is a 53 year old male who presents here today to establish care. - Reports feeling well Lower Leg Edema - Bilaterally - Worse with heat and exercise - Improved - States that he has noticed a difference when he works 10 hr vs 12 hrs Hypertension - Currently managed on losartan 100 mg tablet and hydrochlorothiazide 25 mg tablet - BP ranges from 130's-170's Elevated Liver Enzymes - Hx of fatty liver - Denies undergoing biopsy in the past Flank/Back Pain - More noticeable at night when laying down in bed - Feels like pain is more in his flank than back - Admits to feeling a lump/mass, if I push real hard - denies history of gallbladder issues Weight - Diet is poor. Does okay on the days that he works, then during his 4 days off, tends to binge eat - No regular exercise routine outside of work - Last 3 Encounter Wt Readings: Date: Wt: 12/23/2023 171 kg (376 lb 15.8 oz) 11/19/2023 169 kg (372 lb 9.2 oz) 11/18/2023 171 kg (376 lb 15.8 oz) Health Maintenance: Due for Influenza Vaccine (1) Due for Covid-19 Vaccine ( season) Due for Hep B Vaccine (1 of 3-3 dose series) Due for Colorectal Cancer Screening Due for Shingrix Vaccine (1 of 2) Past, family and social history reviewed. PAST MEDICAL HISTORY PAST MEDICAL HISTORY Diagnosis Date Fatty liver PAST SURGICAL HISTORY Procedure Laterality Date NONE ALLERGIES Lisinopril FAMILY HISTORY Problem Relation Age of Onset Diabetes Father None Mother Social History Tobacco Use Smoking status: Never Smokeless tobacco: Never Substance Use Topics Alcohol use: Yes Drug use: No REVIEW OF SYSTEMS General: Feels well, no weight changes, fevers or chills. HEENT: No sinus congestion, earache, sore throat. Cardiac: No chest pain, palpitations Resp: No cough, wheeze, shortness of breath GI: No reflux symptoms, food intolerance, bowel changes. : No urinary frequency, dysuria. MS: +Back/flank Pain PHYSICAL EXAMINATION BP 155/85 Pulse 72 Ht 182.9 cm (6') Wt (!) 171 kg (376 lb 15.8 oz) SpO2 97% BMI 51.13 kg/m? Repeat BP: 148/80 General: Alert, well developed, well nourished, no distress, pleasant and cooperative. Morbidly obese. HEENT: No adenopathy or thyromegaly Heart: Regular rate and rhythm. Normal S1 and S2. No murmurs, rubs, or gallops. Lungs: Clear to auscultation bilaterally. No respiratory distress. No wheezes, rales, or rhonchi. Abdomen: Soft, non-tender, no distention Extremities: Feet/ankles without edema, posterior tibial pulses full and symmetrical Skin: No rashes or suspicious skin lesions noted. Health Maintenance: Depression Screening Never done Anxiety Screening Never done Hepatitis B Vaccine(1 of 3 - 19+ 3-dose series) Never done Colorectal Cancer Screening Never done Shingrix Vaccine(1 of 2) Never done Influenza Vaccine(1) due on 11/15/2023 Covid-19 Vaccine( - 2023- season) due on 11/15/2023 Diabetes Screening due on 11/18/2026 Lipid Screening due on 11/18/2028 DTaP,Tdap,Td Vaccine(2 - Td or Tdap) due on 03/28/2032 Hepatitis C Screening Completed HIV Screening Completed Data Reviewed Latest Ref Rng 11/19/2023 Protein, Total 6.3 - 8.0 g/dL 7.5 Albumin 3.9 - 4.9 g/dL 4.3 Calcium 8.5 - 10.2 mg/dL 10.2 Bilirubin, Total 0.2 - 1.3 mg/dL 0.5 Alkaline Phosphatase 38 - 113 U/L 89 AST 14 - 40 U/L 89 (H) ALT 10 - 54 U/L 114 (H) Glucose 74 - 99 mg/dL 98 BUN 9 - 24 mg/dL 11 Creatinine 0.73 - 1.22 mg/dL 0.82 Sodium 136 - 144 mmol/L 138 Potassium 3.7 - 5.1 mmol/L 4.3 Chloride 98 - 107 mmol/L 100 CO2 22 - 30 mmol/L 25 Anion Gap 8 - 15 mmol/L 13 eGFR >=60 mL/min/1.73m? 106 WBC 3.70 - 11.00 k/uL 9.95 RBC 4.20 - 6.00 m/uL 5.67 Hemoglobin 13.0 - 17.0 g/dL 16.2 Hematocrit 39.0 - 51.0 % 49.6 MCV 80.0 - 100.0 fL 87.5 MCH 26.0 - 34.0 pg 28.6 MCHC 30.5 - 36.0 g/dL 32.7 RDW-CV 11.5 - 15.0 % 13.3 Platelet Count 150 - 400 k/uL 238 MPV 9.0 - 12.7 fL 12.1 Absolute nRBC <0.01 k/uL <0.01 Cholesterol, Total <200 mg/dL 222 (H) Triglyceride <150 mg/dL 168 (H) HDL Cholesterol >39 mg/dL 39 (L) Non HDL Cholesterol <130 mg/dL 183 (H) Fasting Time hrs unknown VLDL Cholesterol <30 mg/dL 34 (H) TC:HDL Ratio <5.10 5.69 (H) LDL Cholesterol <100 mg/dL 149 (H) LDL:HDL Ratio <2.54 3.82 (H) Hemoglobin A1C 4.3 - 5.6 % 6.0 (H) Estimated Average Glucose mg/dL 126 TSH 0.270 - 4.200 mIU/L 1.650 NT Pro BNP <125 pg/mL 78 PSA Screening <2.60 ng/mL 0.23 Legend: (H) High (L) Low Assessment/Plan (Z00.00) Encounter for medical examination to establish care (primary encounter diagnosis) Comment: 53 year old fairly healthy male here to establish care Plan: As below (Z13.31) Screeni (more content not included)...[facility] 12-23-2023 History of Present illness Narrative* Abby Rosen MD - 12/23/2023 1:01 PM EDT CHIEF COMPLAINT Patient presents with: Establish Care HISTORY OF PRESENT ILLNESS Flakito Sahni is a 53 year old male who presents here today to establish care. - Reports feeling well Lower Leg Edema - Bilaterally - Worse with heat and exercise - Improved - States that he has noticed a difference when he works 10 hr vs 12 hrs Hypertension - Currently managed on losartan 100 mg tablet and hydrochlorothiazide 25 mg tablet - BP ranges from 130's-170's Elevated Liver Enzymes - Hx of fatty liver - Denies undergoing biopsy in the past Flank/Back Pain - More noticeable at night when laying down in bed - Feels like pain is more in his flank than back - Admits to feeling a lump/mass, if I push real hard - denies history of gallbladder issues Weight - Diet is poor. Does okay on the days that he works, then during his 4 days off, tends to binge eat - No regular exercise routine outside of work - Last 3 Encounter Wt Readings: Date: Wt: 12/23/2023 171 kg (376 lb 15.8 oz) 11/19/2023 169 kg (372 lb 9.2 oz) 11/18/2023 171 kg (376 lb 15.8 oz) Health Maintenance: Due for Influenza Vaccine (1) Due for Covid-19 Vaccine ( season) Due for Hep B Vaccine (1 of 3-3 dose series) Due for Colorectal Cancer Screening Due for Shingrix Vaccine (1 of 2) Past, family and social history reviewed. PAST MEDICAL HISTORY PAST MEDICAL HISTORY Diagnosis Date Fatty liver PAST SURGICAL HISTORY Procedure Laterality Date NONE ALLERGIES Lisinopril FAMILY HISTORY Problem Relation Age of Onset Diabetes Father None Mother Social History Tobacco Use Smoking status: Never Smokeless tobacco: Never Substance Use Topics Alcohol use: Yes Drug use: No REVIEW OF SYSTEMS General: Feels well, no weight changes, fevers or chills. HEENT: No sinus congestion, earache, sore throat. Cardiac: No chest pain, palpitations Resp: No cough, wheeze, shortness of breath GI: No reflux symptoms, food intolerance, bowel changes. : No urinary frequency, dysuria. MS: +Back/flank Pain PHYSICAL EXAMINATION BP 155/85 Pulse 72 Ht 182.9 cm (6') Wt (!) 171 kg (376 lb 15.8 oz) SpO2 97% BMI 51.13 kg/m Repeat BP: 148/80 General: Alert, well developed, well nourished, no distress, pleasant and cooperative. Morbidly obese. HEENT: No adenopathy or thyromegaly Heart: Regular rate and rhythm. Normal S1 and S2. No murmurs, rubs, or gallops. Lungs: Clear to auscultation bilaterally. No respiratory distress. No wheezes, rales, or rhonchi. Abdomen: Soft, non-tender, no distention Extremities: Feet/ankles without edema, posterior tibial pulses full and symmetrical Skin: No rashes or suspicious skin lesions noted. Health Maintenance: Depression Screening Never done Anxiety Screening Never done Hepatitis B Vaccine(1 of 3 - 19+ 3-dose series) Never done Colorectal Cancer Screening Never done Shingrix Vaccine(1 of 2) Never done Influenza Vaccine(1) due on 11/15/2023 Covid-19 Vaccine(3 - season) due on 11/15/2023 Diabetes Screening due on 11/18/2026 Lipid Screening due on 11/18/2028 DTaP,Tdap,Td Vaccine(2 - Td or Tdap) due on 03/28/2032 Hepatitis C Screening Completed HIV Screening Completed Data Reviewed Latest Ref Rng 11/19/2023 Protein, Total 6.3 - 8.0 g/dL 7.5 Albumin 3.9 - 4.9 g/dL 4.3 Calcium 8.5 - 10.2 mg/dL 10.2 Bilirubin, Total 0.2 - 1.3 mg/dL 0.5 Alkaline Phosphatase 38 - 113 U/L 89 AST 14 - 40 U/L 89 (H) ALT 10 - 54 U/L 114 (H) Glucose 74 - 99 mg/dL 98 BUN 9 - 24 mg/dL 11 Creatinine 0.73 - 1.22 mg/dL 0.82 Sodium 136 - 144 mmol/L 138 Potassium 3.7 - 5.1 mmol/L 4.3 Chloride 98 - 107 mmol/L 100 CO2 22 - 30 mmol/L 25 Anion Gap 8 - 15 mmol/L 13 eGFR >=60 mL/min/1.73m 106 WBC 3.70 - 11.00 k/uL 9.95 RBC 4.20 - 6.00 m/uL 5.67 Hemoglobin 13.0 - 17.0 g/dL 16.2 Hematocrit 39.0 - 51.0 % 49.6 MCV 80.0 - 100.0 fL 87.5 MCH 26.0 - 34.0 pg 28.6 MCHC 30.5 - 36.0 g/dL 32.7 RDW-CV 11.5 - 15.0 % 13.3 Platelet Count 150 - 400 k/uL 238 MPV 9.0 - 12.7 fL 12.1 Absolute nRBC <0.01 k/uL <0.01 Cholesterol, Total <200 mg/dL 222 (H) Triglyceride <150 mg/dL 168 (H) HDL Cholesterol >39 mg/dL 39 (L) Non HDL Cholesterol <130 mg/dL 183 (H) Fasting Time hrs unknown VLDL Cholesterol <30 mg/dL 34 (H) TC:HDL Ratio <5.10 5.69 (H) LDL Cholesterol <100 mg/dL 149 (H) LDL:HDL Ratio <2.54 3.82 (H) Hemoglobin A1C 4.3 - 5.6 % 6.0 (H) Estimated Average Glucose mg/dL 126 TSH 0.270 - 4.200 mIU/L 1.650 NT Pro BNP <125 pg/mL 78 PSA Screening <2.60 ng/mL 0.23 Legend: (H) High (L) Low Assessment/Plan (Z00.00) Encounter for medical examination to establish care (primary encounter diagnosis) Comment: 53 year old fairly healthy male here to establish care Plan: As below (Z13.31) Screening for depression (Z13.39) Encounter for screening examination for other mental health and behavioral disorders Comment: Per health maintenance Plan: ANXIETY SCREENING DEPRESSION SCREENING (E66.01, Z68.43) Morbid obesity with BMI of 50.0-59.9, adult (HCC) Comment: Currently 376 lb with a BMI of 51.13 kg/m^2. Plan: ENDOCRINE MEDICAL WEIGHT MANAGEMENT Encouraged healthy diet and regular exercise Recommend he be seen and evaluated by weight management for further counseling on weight loss- Rx treatment. (K76.0) Fatty liver Comment: Stable Plan: Encouraged weight loss ENDOCRINE MEDICAL WEIGHT MANAGEMENT (R10.9) Right flank pain Comment: not suggestive of kidney pain. Given location of pain on exam, not concerned for kidney issue. Consider sacroiliac involvement / peripheral nerve pinch. Plan: Will continue to monitor Encouraged weight loss Hypertension Comment: BP above goal. Previously tried lisinopril, had side effects - dry cough. Plan: Discontinue hydrochlorothiazide and losartan, switch within class to see if we can improve without adding more meds. Start Chlorthalidone (HYGROTON) 25 mg tablet once daily Start irbesartan (AVAPRO) 300 mg tablet once daily at bedtime Requested Prescriptions Signed Prescriptions Disp Refills chlorthalidone (HYGROTON) 25 mg tablet 30 tablet 11 Sig: Take 1 tablet by mouth once daily. irbesartan (AVAPRO) 300 mg tablet 30 tablet 5 Sig: Take 1 tablet by mouth daily at bedtime. RTO: BP check few weeks, also as directed by bariatric clinic Scribe Attestation: By signing my name below, IGilma, attest that this documentation has been prepared under the direction and in the presence of Donavan Rosen M.D. Electronically Signed: Bin Oglesby. December 23, 2023 1:01 PM Provider Attestation: Abby Serrano MD, personally performed the services described in this documentation. All medical record entries made by the scribe were at my direction and in my telephonic presence. I have reviewed the chart and discharge instructions (if applicable), and agree that the record reflects my personal performance and is accurate and complete. Electronically Signed: Abby Rosen MD December 3:40 PM documented in [facility] NoteHNO ID: [id number] Author: BABAR CORBIN APRN.SERVICE CONSULTANT Service: ? Author Type: Nurse Practitioner Type: Progress Notes Filed: 11/19/2023 13:39 Note Text: This note was created using [employer]. Subjective Flakito Sahni is a 53 year old male. Patient here to establish care. Last saw previous PCP in 2012 and hasn't had any follow-up care since that time. Drinks 3-4 monster drinks per day, denies palpitations, but sometimes gets chest pain, also shortness of breath with exertion. Has had elevated blood pressure's in the past, but never treated with medication Intermittent lower leg edema with heat, alcohol use. Worsening recently with recent increase in work schedule, then had redness/rash as well so went to urgent care and was treated for cellulitis in legs. Reports ongoing lower leg swelling that resolves with elevation, doesn't usually have swelling when he first wakes up in the morning. Gained 100 lbs over the last 4 years. Admits to poor eating and not exercising. STOP BANG Questionnaire 1. Snoring Do you snore loudly (louder than talking or loud enough to be heard through closed doors)? NO 2. Tired Do you often feel tired, fatigued, or sleepy during daytime? YES 3. Observed Has anyone observed you stop breathing during your sleep? NO 4. Blood Pressure Do you have or are you being treated for high blood pressure? YES 5. BMI BMI more than 35 kg/m2? YES 6. Age Age over 50 yr old? YES 7. Neck circumference Neck circumference greater than 40 cm? YES 8. Gender Gender male? YES * Neck circumference is measured by staff High risk of MK: answering yes to three or more items Low risk of MK: answering yes to less than three items The history is provided by the patient. Review of Systems Constitutional: Negative for unexpected weight change. Eyes: Positive for visual disturbance. Respiratory: Positive for shortness of breath and wheezing. Negative for cough. Cardiovascular: Positive for chest pain and leg swelling. Negative for palpitations. Gastrointestinal: Negative for constipation and diarrhea. Genitourinary: Negative for difficulty urinating, dysuria, frequency and urgency. Skin: Positive for color change. Neurological: Positive for headaches. Negative for dizziness. PAST MEDICAL HISTORY No date: Fatty liver PAST SURGICAL HISTORY No date: NONE ALLERGIES Patient has no known allergies. MEDICATIONS Ibuprofen 200 mg cap Take by mouth as needed. lisinopril-hydroCHLOROthiazide (ZESTORETIC) 20-12.5 mg per tablet Take 1 tablet by mouth every morning. DIPHENHYDRAMINE HCL (BENADRYL ORAL) Take by mouth as needed. FAMILY HISTORY Problem Relation Age of Onset Diabetes Father None Mother Social History Tobacco Use Smoking status: Never Smokeless tobacco: Never Substance Use Topics Alcohol use: Yes Drug use: No Objective BP 171/112 Pulse 103 Ht 182.9 cm (6') Wt (!) 169 kg (372 lb 9.2 oz) BMI 50.53 kg/m? Physical Exam Vitals and nursing note reviewed. Constitutional: Appearance: He is well-developed. He is obese. He is not ill-appearing. Cardiovascular: Rate and Rhythm: Normal rate and regular rhythm. Heart sounds: Normal heart sounds. Pulmonary: Effort: Pulmonary effort is normal. Breath sounds: Normal breath sounds. Musculoskeletal: Right lower le+ Pitting Edema present. Left lower le+ Pitting Edema present. Skin: General: Skin is warm and dry. Neurological: Mental Status: He is alert and oriented to person, place, and time. Gait: Gait normal. Psychiatric: Mood and Affect: Mood normal. Assessment and Plan 1. Primary hypertension Fasting labs today. Start medication and checking blood pressure's regularly at home. Send MC message in 1-2 weeks with blood pressure updates. - COMPLETE BLOOD COUNT - COMPREHENSIVE METABOLIC PANEL - ECG COMPLETE - lisinopril-hydroCHLOROthiazide (ZESTORETIC) 20-12.5 mg per tablet; Take 1 tablet by mouth every morning. Dispense: 30 tablet; Refill: 0 2. Bilateral leg edema Likely venous insufficiency, recommend watching salt intake, compression stockings. Consider cardiac Echo pending continued symptoms and lab results, patient would like to hold off on that referral at this time. - NT PRO BNP 3. STRANGE (dyspnea on exertion) Likely related to weight, consider echo and stress test, patient would like to wait at this time, discuss at next visit with PCP. 4. Morbid obesity with BMI of 50.0-59.9, adult (HCC) Encouraged to start exercising and healthy diet. Offered dietitian services/medical management, patient will think about this and consider referral at next visit. - THYROID STIMULATING HORMONE 5. Hyperlipidemia, mixed Fasting today, recheck. - LIPID PANEL BASIC 6. Screening for HIV (human immunodeficiency virus) - HIV 1/2 COMBO WITH REFLEX TO DIFFERENTIATION 7. Need for hepatitis C screening test - HEPATITIS C ANTIBODY IA W (more content not included)...[facility]09-05-2024 History of Present illness Narrative* Babar Corbin APRN.[facility] - 11/19/2023 10:56 AM EDT This note was created using [employer]. Subjective Flakito Sahni is a 53 year old male. Patient here to establish care. Last saw previous PCP in 2012 and hasn't had any follow-up care since that time. Drinks 3-4 monster drinks per day, denies palpitations, but sometimes gets chest pain, also shortness of breath with exertion. Has had elevated blood pressure's in the past, but never treated with medication Intermittent lower leg edema with heat, alcohol use. Worsening recently with recent increase in work schedule, then had redness/rash as well so went to urgent care and was treated for cellulitis in legs. Reports ongoing lower leg swelling that resolves with elevation, doesn't usually have swelling when he first wakes up in the morning. Gained 100 lbs over the last 4 years. Admits to poor eating and not exercising. STOP BANG Questionnaire 1. Snoring Do you snore loudly (louder than talking or loud enough to be heard through closed doors)? NO 2. Tired Do you often feel tired, fatigued, or sleepy during daytime? YES 3. Observed Has anyone observed you stop breathing during your sleep? NO 4. Blood Pressure Do you have or are you being treated for high blood pressure? YES 5. BMI BMI more than 35 kg/m2? YES 6. Age Age over 50 yr old? YES 7. Neck circumference Neck circumference greater than 40 cm? YES 8. Gender Gender male? YES * Neck circumference is measured by staff High risk of MK: answering yes to three or more items Low risk of MK: answering yes to less than three items The history is provided by the patient. Review of Systems Constitutional: Negative for unexpected weight change. Eyes: Positive for visual disturbance. Respiratory: Positive for shortness of breath and wheezing. Negative for cough. Cardiovascular: Positive for chest pain and leg swelling. Negative for palpitations. Gastrointestinal: Negative for constipation and diarrhea. Genitourinary: Negative for difficulty urinating, dysuria, frequency and urgency. Skin: Positive for color change. Neurological: Positive for headaches. Negative for dizziness. PAST MEDICAL HISTORY No date: Fatty liver PAST SURGICAL HISTORY No date: NONE ALLERGIES Patient has no known allergies. MEDICATIONS Ibuprofen 200 mg cap Take by mouth as needed. lisinopril-hydroCHLOROthiazide (ZESTORETIC) 20-12.5 mg per tablet Take 1 tablet by mouth every morning. DIPHENHYDRAMINE HCL (BENADRYL ORAL) Take by mouth as needed. FAMILY HISTORY Problem Relation Age of Onset Diabetes Father None Mother Social History Tobacco Use Smoking status: Never Smokeless tobacco: Never Substance Use Topics Alcohol use: Yes Drug use: No Objective BP 171/112 Pulse 103 Ht 182.9 cm (6') Wt (!) 169 kg (372 lb 9.2 oz) BMI 50.53 kg/m Physical Exam Vitals and nursing note reviewed. Constitutional: Appearance: He is well-developed. He is obese. He is not ill-appearing. Cardiovascular: Rate and Rhythm: Normal rate and regular rhythm. Heart sounds: Normal heart sounds. Pulmonary: Effort: Pulmonary effort is normal. Breath sounds: Normal breath sounds. Musculoskeletal: Right lower le+ Pitting Edema present. Left lower le+ Pitting Edema present. Skin: General: Skin is warm and dry. Neurological: Mental Status: He is alert and oriented to person, place, and time. Gait: Gait normal. Psychiatric: Mood and Affect: Mood normal. Assessment and Plan 1. Primary hypertension Fasting labs today. Start medication and checking blood pressure's regularly at home. Send MC message in 1-2 weeks with blood pressure updates. - COMPLETE BLOOD COUNT - COMPREHENSIVE METABOLIC PANEL - ECG COMPLETE - lisinopril-hydroCHLOROthiazide (ZESTORETIC) 20-12.5 mg per tablet; Take 1 tablet by mouth every morning. Dispense: 30 tablet; Refill: 0 2. Bilateral leg edema Likely venous insufficiency, recommend watching salt intake, compression stockings. Consider cardiac Echo pending continued symptoms and lab results, patient would like to hold off on that referral at this time. - NT PRO BNP 3. STRANGE (dyspnea on exertion) Likely related to weight, consider echo and stress test, patient would like to wait at this time, discuss at next visit with PCP. 4. Morbid obesity with BMI of 50.0-59.9, adult (HCC) Encouraged to start exercising and healthy diet. Offered dietitian services/medical management, patient will think about this and consider referral at next visit. - THYROID STIMULATING HORMONE 5. Hyperlipidemia, mixed Fasting today, recheck. - LIPID PANEL BASIC 6. Screening for HIV (human immunodeficiency virus) - HIV 1/2 COMBO WITH REFLEX TO DIFFERENTIATION 7. Need for hepatitis C screening test - HEPATITIS C ANTIBODY IA WITH CONFIRMATION 8. Screening for prostate cancer - PSA/PROSTATE SPECIFIC ANTIGEN SCREENING 9. Screening for diabetes mellitus - HEMOGLOBIN A1C Schedule physical with Dr. Rosen to establish care. Babar Corbin APRN.[facility] NoteHNO ID: [id number] Author: KATINA ABDUL APRN.[facility] Service: ? Author Type: Nurse Practitioner Type: Progress Notes Filed: 11/18/2023 11:13 Note Text: Subjective Patient came in with complaints of bilateral lower leg swelling. Patient says it has been on and off for about 2 weeks. Patient has not seen a primary care doctor in many years. Patient has untreated hypertension. Says he is noncompliant with treatments. Patient knows the risk factors. Patient says it is just time that he gets treatment. The history is provided by the patient. No technical sales director was used. Review of Systems Constitutional: Negative. Skin: Negative. Objective Physical Exam Constitutional: Appearance: Normal appearance. Pulmonary: Effort: Pulmonary effort is normal. Neurological: Mental Status: He is alert. PAST MEDICAL HISTORY No date: Fatty liver PAST SURGICAL HISTORY No date: NONE ALLERGIES Patient has no known allergies. MEDICATIONS doxycycline monohydrate 100 mg tablet Take 1 tablet by mouth two times a day for 5 days. cephALEXin (KEFLEX) 500 mg capsule Take 1 capsule by mouth four times daily for 5 days. Ibuprofen 200 mg cap Take by mouth as needed. (Patient not taking: Reported on 11/13/2023) DIPHENHYDRAMINE HCL (BENADRYL ORAL) Take by mouth as needed. (Patient not taking: Reported on 11/13/2023) FAMILY HISTORY Problem Relation Age of Onset Diabetes Father None Mother Social History Tobacco Use Smoking status: Never Smokeless tobacco: Never Substance Use Topics Alcohol use: Yes Drug use: No ASSESSMENT/PLAN: 1. Leg swelling - ICD9: 729.81, ICD10: M79.89 At this time patient was set up tomorrow with a primary care appointment. Patient was instructed that he should be seeing a primary care regularly and having follow-ups and taking medications as prescribed. Patient was okay with this care plan. Katina Abdul APRN.[facility]09-04-2024 History of Present illness Narrative* Katina Abdul APRN.[facility] - 11/18/2023 11:10 AM EDT Subjective Patient came in with complaints of bilateral lower leg swelling. Patient says it has been on and off for about 2 weeks. Patient has not seen a primary care doctor in many years. Patient has untreatedhypertension. Says he is noncompliant with treatments. Patient knows the risk factors. Patient saysit is just time that he gets treatment. The history is provided by the patient. No technical sales director was used. Review of Systems Constitutional: Negative. Skin: Negative. Objective Physical Exam Constitutional: Appearance: Normal appearance. Pulmonary: Effort: Pulmonary effort is normal. Neurological: Mental Status: He is alert. PAST MEDICAL HISTORY No date: Fatty liver PAST SURGICAL HISTORY No date: NONE ALLERGIES Patient has no known allergies. MEDICATIONS doxycycline monohydrate 100 mg tablet Take 1 tablet by mouth two times a day for 5 days. cephALEXin (KEFLEX) 500 mg capsule Take 1 capsule by mouth four times daily for 5 days. Ibuprofen 200 mg cap Take by mouth as needed. (Patient not taking: Reported on 11/13/2023) DIPHENHYDRAMINE HCL (BENADRYL ORAL) Take by mouth as needed. (Patient not taking: Reported on 11/13/2023) FAMILY HISTORY Problem Relation Age of Onset Diabetes Father None Mother Social History Tobacco Use Smoking status: Never Smokeless tobacco: Never Substance Use Topics Alcohol use: Yes Drug use: No ASSESSMENT/PLAN: 1. Leg swelling - ICD9: 729.81, ICD10: M79.89 At this time patient was set up tomorrow with a primary care appointment. Patient was instructed that he should be seeing a primary care regularly and having follow-ups and taking medications as prescribed. Patient was okay with this care plan. Katina Abdul APRN.[facility] NoteHNO ID: [id number] Author: SHANIQUA CISNEROS APRN.[facility] Service: ? Author Type: Nurse Practitioner Type: Progress Notes Filed: 11/13/2023 15:54 Note Text: Subjective The history is provided by the patient. No technical sales director was used. HPI Flakito Sahni is a 53 year old male who presents today for CC of right lower leg redness of skin and swelling. He has not used any treatment or medications. He has a h/o venous insufficiency. States he had a fever last night. BP 144/95 Pulse 113 Temp 37.7 ?C (99.8 ?F) Resp 18 Wt (!) 169.5 kg (373 lb 10.9 oz) SpO2 97% BMI 50.68 kg/m? BP recheck 140/88 Social History Tobacco Use Smoking status: Never Smokeless tobacco: Never Substance Use Topics Alcohol use: Yes Drug use: No PAST MEDICAL HISTORY No date: Fatty liver I have confirmed and edited as necessary, the [facility] Review of Systems Constitutional: Negative for chills and fever. Musculoskeletal: Negative for joint pain and myalgias. Skin: Negative for itching and rash. Redness of right lower leg All other systems reviewed and are negative. Objective Physical Exam Vitals and nursing note reviewed. Pulmonary: Effort: Pulmonary effort is normal. Skin: General: Skin is warm and dry. Findings: Erythema present. Comments: Warm to touch, no fluctuant area. Neurological: Mental Status: He is alert and oriented to person, place, and time. Psychiatric: Mood and Affect: Affect normal. ASSESSMENT/PLAN: 1. Erythema of skin - ICD9: 695.9, ICD10: L53.9 Appears to be cellulitis Keflex/doxycyline as ordered Compression If starts streaking, need to go to ED for further evaluation and treatment BP was elevated, recommend to see pcp for management Diagnosis and treatment plan were discussed and questions were answered to the patient's satisfaction. Pt acknowledged understanding of concepts and follow up plan. Specific signs and symptoms that would indicate the need for higher level of care were discussed in detail warranting prompt ER evaluation. Shaniqua Cisneros APRN.[facility]08-30-2024 History of Present illness Narrative* Shaniqua Cisneros APRN.[facility] - 11/13/2023 3:44 PM EDT Images from the original note were not included. Subjective The history is provided by the patient. No technical sales director was used. AMY Flakito Sahni is a 53 year old male who presents today for CC of right lower leg redness of skin and swelling. He has not used any treatment or medications. He has a h/o venous insufficiency. States he had a fever last night. BP 144/95 Pulse 113 Temp 37.7 C (99.8 F) Resp 18 Wt (!) 169.5 kg (373 lb 10.9 oz) SpO2 97% BMI 50.68 kg/m BP recheck 140/88 Social History Tobacco Use Smoking status: Never Smokeless tobacco: Never Substance Use Topics Alcohol use: Yes Drug use: No PAST MEDICAL HISTORY No date: Fatty liver I have confirmed and edited as necessary, the [facility] Review of Systems Constitutional: Negative for chills and fever. Musculoskeletal: Negative for joint pain and myalgias. Skin: Negative for itching and rash. Redness of right lower leg All other systems reviewed and are negative. Objective Physical Exam Vitals and nursing note reviewed. Pulmonary: Effort: Pulmonary effort is normal. Skin: General: Skin is warm and dry. Findings: Erythema present. Comments: Warm to touch, no fluctuant area. Neurological: Mental Status: He is alert and oriented to person, place, and time. Psychiatric: Mood and Affect: Affect normal. ASSESSMENT/PLAN: 1. Erythema of skin - ICD9: 695.9, ICD10: L53.9 Appears to be cellulitis Keflex/doxycyline as ordered Compression If starts streaking, need to go to ED for further evaluation and treatment BP was elevated, recommend to see pcp for management Diagnosis and treatment plan were discussed and questions were answered to the patient's satisfaction. Pt acknowledged understanding of concepts and follow up plan. Specific signs and symptoms that would indicate the need for higher level of care were discussed indetail warranting prompt ER evaluation. Shaniqua Cisneros APRN.[facility]* Diagnosis Erythema of skin- Primary Unspecified erythematous condition [facility] Diagnosis Leg swelling- Primary Swelling of limb [facility] Diagnosis Primary hypertension- Primary Unspecified essential hypertension Bilateral leg edema Edema STRANGE (dyspnea on exertion) Other dyspnea and respiratory abnormality Morbid obesity with BMI of 50.0-59.9, adult (HCC) Morbid obesity Hyperlipidemia, mixed Mixed hyperlipidemia Screening for HIV (human immunodeficiency virus) Special screening examination for other specified viral diseases Need for hepatitis C screening test Special screening examination for other specified viral diseases Screening for prostate cancer Special screening for malignant neoplasm of prostate Screening for diabetes mellitus [facility]* Diagnosis Encounter for medical examination to establish care- Primary Screening for depression Encounter for screening examination for other mental health and behavioral disorders Morbid obesity with BMI of 50.0-59.9, adult (HCC) Morbid obesity Fatty liver Other chronic nonalcoholic liver disease Right flank pain Abdominal pain, unspecified site documented in this encounter [facility]* Diagnosis Morbid obesity with BMI of 50.0-59.9, adult (HCC) Morbid obesity Fatty liver Other chronic nonalcoholic liver disease documented in [facility]* Diagnosis Morbid obesity with BMI of 50.0-59.9, adult (HCC) Morbid obesity Fatty liver Other chronic nonalcoholic liver disease documented in [facility]* Diagnosis Morbid obesity with BMI of 50.0-59.9, adult (HCC) Morbid obesity Fatty liver Other chronic nonalcoholic liver disease documented in [facility]* Diagnosis Onset Date Resolution Status Admit Date Establishing care with new doctor, encounter for noneactive August 25, 2024 1:46pm Steatosis of liver noneactive August 142024 1:46pm [facility] Work Phone: Reason for referral (narrative)* Outpatient Procedure (Routine) - New Request Specialty Diagnoses / Procedures Referred By Contac t Referred To [facility] Diagnoses Primary hypertension Procedures ECG COMPLETE ECG ROUTINE ECG W/LEAST 12 LDS W/I&R Babar Corbin APRN.[facility] [address] [place] [address] [facility] [address] [place] [address] Referral ID Status Reason Start Date Expiration Date Visits Requested Visits Authorized [id number] New Request Auto-Generat ed Referral 11/19/2023 11/18/2024 1 [facility]No reason for [facility] Work Phone: Reason for Referral Specialty Diagnoses / Procedures Referred By Contac t Referred To Contact Diagnoses Morbid obesity with BMI of 50.0-59.9, adult (HCC) Fatty liver Procedures ENDOCRINE MEDICAL WEIGHT MANAGEMENT OFFICE/OUTPATIENT [facility] 60 MINUTES Abby Rosen MD [address] [place] [address] Referral ID Status Reason Start Date Expiration Date Visits Requested Visits Authorized [id number] Authorized PCP Requested Referral 12/23/2023 12/22/2024 1 1 Specialty Diagnoses / Procedures Referred By Contlandon t Referred To Contact Diagnoses Morbid obesity with BMI of 50.0-59.9, adult (HCC) Procedures ENDOCRINOLOGY DIETITIAN VISIT (MNT) MEDICAL NUTRITION ASSMT&IVNTJ INDIV EACH 15 NE MEDICAL NUTRITION ASSMT&IVNTJ INDIV EACH 15 NE MEDICAL NUTRITION ASSMT&IVNTJ INDIV EACH 15 NE MEDICAL NUTRITION ASSMT&IVNTJ INDIV EACH 15 NE Hank Cabrera MD [address] [place] [address] Referral ID Status Reason Start Date Expiration Date Visits Requested Visits Authorized [id number] Authorized PCP Requested Referral 12/24/2024 1 1 Summary Purpose Family History No Family History Records Found Relationship Condition Age at Onset Recorded Date/T jodie father Diabetes mellitus Unknown Myocardial infarction Unknown Cardiac disease Unknown Hypertension Unknown Advance Directives No Advanced Directives Records FoundNo Advanced Directives Records Found Chief Complaint and Reason for Visit Chief Complaint Admit Date 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 August 25, 2024 1:4 6pm BP CHECK September 01, 2024 12:5 4pm Reason for Visit Admit Date Essential hypertension August 25, 2024 1 :46pm Prediabetes August 25, 2024 1:46 pm Screening for depression August 25, 2024 1:46pm Herpes zoster vaccination declined August 25, 2024 1:46pm Screening for colon cancer August 25 1:46pm Overuse of medication August 25, 2024 1: 46pm Establishing care with new josue bhatti for August 25, 2024 1:46pm Chronic low back pain August 25, 2024 1: 46pm Steatosis of liver August 25, 2024 1:46 pm Leg swelling August 25, 2024 1:46 pm Suspected sleep apnea August 25, 2024 1: 46pm Morbid obesity with BMI of 50.0-59.9, ad ult August 25, 2024 1:46pm Chief Complaint Admit Date 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 August 25, 2024 1:4 6pm Reason for Visit Admit Date Establishing care with new josue bhatti for August 25, 2024 1:46pm Steatosis of liver August 25, 2024 1:46 pm Chief Complaint Admit Date 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 August 25, 2024 1:4 6pm BP CHECK September 01, 2024 12:5 4pm G47.10 - Hypersomnia, unspecified September 152024 1:02pm Reason for Visit Admit Date Essential hypertension August 25, 2024 1 :46pm Prediabetes August 25, 2024 1:46 pm Screening for depression August 25, 2024 1:46pm Herpes zoster vaccination declined August 25, 2024 1:46pm Screening for colon cancer August 25 1:46pm Overuse of medication August 25, 2024 1: 46pm Establishing care with new doctor, josue lamar for August 25, 2024 1:46pm Chronic low back pain August 25, 2024 1: 46pm Steatosis of liver August 25, 2024 1:46 pm Leg swelling August 25, 2024 1:46 pm Suspected sleep apnea August 25, 2024 1: 46pm Morbid obesity with BMI of 50.0-59.9, ad ult August 25, 2024 1:46pm Essential hypertension September 01, 2024 1 2:54pm Additional Source Comments Source Comments (unrecognize d section and content) In the event this informatio n is protected by the Federal Confidentiality of Alcohol and Drug Abuse Patient Records regulations: The Federal rules restrict any use of the information to criminally investigate or prosecute any alcohol or drug abuse patient.[facility] the event this information is protected by the Federal Confidentiality of Alcohol and Drug Abuse Patient Records regulations: The Federal rules restrict any use of the information to criminally investigate or prosecute any alcohol or drug abuse patient.[facility] the event this information is protected by the Federal Confidentiality of Alcohol and Drug Abuse Patient Records regulations: The Federal rules restrict any use of the information to criminally investigate or prosecute any alcohol or drug abuse patient.[facility] the event this information is protected by the Federal Confidentiality of Alcohol and Drug Abuse Patient Records regulations: The Federal rules restrict any use of the information to criminally investigate or prosecute any alcohol or drug abuse patient.[facility] the event this information is protected by the Federal Confidentiality of Alcohol and Drug Abuse Patient Records regulations: The Federal rules restrict any use of the information to criminally investigate or prosecute any alcohol or drug abuse patient.[facility] the event this information is protected by the Federal Confidentiality of Alcohol and Drug Abuse Patient Records regulations: The Federal rules restrict any use of the information to criminally investigate or prosecute any alcohol or drug abuse patient.[facility] the event this information is protected by the Federal Confidentiality of Alcohol and Drug Abuse Patient Records regulations: The Federal rules restrict any use of the information to criminally investigate or prosecute any alcohol or drug abuse patient.[facility] the event this information is protected by the Federal Confidentiality of Alcohol and Drug Abuse Patient Records regulations: The Federal rules restrict any use of the information to criminally investigate or prosecute any alcohol or drug abuse patient.[facility] Reason for Visit (unrecogniz ed section and content) Reason Comments Cellulitis Bilateral lower legs x5 days Reason Comments bilateral leg swelling X 2.5 weeks Reason Comments Edema Bilateral legs. Reason Comments Establish Care Reason Comments Obesity Specialty Diagnoses / Procedures Referred By Contlandon t Referred To Contact Diagnoses Morbid obesity with BMI of 50.0-59.9, adult (HCC) Fatty liver Procedures ENDOCRINE MEDICAL WEIGHT MANAGEMENT OFFICE/OUTPATIENT [facility] 60 MINUTES Abby Rosen MD [address] [place] [address] Referral ID Status Reason Start Date Expiration Date V isits Requested Visits Authorized [id number] Closed PCP Requested Referral 12/23/2023 12/22/2024 1 1 Reason Comments Med Change Request Reason Comments Medication Problem Care Teams (unrecognized sec tion and content) It Applications Developer Relationship Specialty Start Date End Date Abby Rosen MD [address] [facility] [address] [place], [place] [id number] PCP - General Family Medicine 11/19/23 It Applications Developer Relationship Specialty Start Date End Date Abby Rosen MD [address] [facility] [address] [place], [place] [id number] PCP - General Family Medicine 11/19/23 It Applications Developer Relationship Specialty Start Date End Date Abby Rosen MD [address] [facility] [place] [address] PCP - General Family Medicine 11/19/23 It Applications Developer Relationship Specialty Start Date End Date Abby Rosen MD [address] [facility] [place] [address] PCP - General Family Medicine 11/19/23 It Applications Developer Relationship Specialty Start Date End Date Abby Rosen MD [address] [facility] [address] [place], [place] [id number] PCP - General Family Medicine 11/19/23 It Applications Developer Relationship Specialty Start Date End Date Abby Rosen MD [address] [facility] [address] [place], [place] [id number] PCP - General Family Medicine 11/19/23 Babar Mendoza APRN.SERVICE CONSULTANT [address] [facility] [address] [place], [place] [id number] Performance Reporter Internal Medicine 02/21/24 Team Status: Active Member Role Status Dates Dr. Neda Avilez MD Primary Care Provider Active Team Status: Inactive Member Role Status Dates Dr. Neda Avilez MD Attending Provider Active Start: August 25, 2024 End: August 25, 2024 Team Status: Active Member Role Status Dates Dr. Neda Avilez MD Primary Care Provider Active Start: August 25, 2024 Dr. Neda Avilez MD Attending Provider Active Start: August 25, 2024 Team Status: Inactive Member Role Status Dates Dr. Neda Avilez MD Primary Care Provider Active Start: August 25, 2024 End: August 25, 2024 Dr. Neda Avilez MD Attending Provider Active Start: August 25, 2024 End: August 25, 2024 Team Status: Inactive Member Role Status Dates Dr. Neda Avilez MD Primary Care Provider Active Start: September 01, 2024 End: September 01, 2024 Dr. Neda Avilez MD Referring Provider Active Start: September 01, 2024 End: September 01, 2024 BIM NURSE Attending Provider Active Start: 2024 End: September 01, 2024 Team Status: Active Member Role/Relationship Status Dates Dr. Neda Avilez MD Primary Care Provider Active Team Status: Inactive Member Role/Relationship Status Dates Dr. Neda Avilez MD Attending Provider Active Start: August 25, 2024 End: August 25, 2024 Team Status: Inactive Member Role/Relationship Status Dates Dr. Neda Avilez MD Primary Care Provider Active Start: August 25, 2024 End: August 25, 2024 Dr. Neda Avilez MD Attending Provider Active Start: August 25, 2024 End: August 25, 2024 Team Status: Inactive Member Role/Relationship Status Dates Dr. Neda Avilez MD Primary Care Provider Active Start: September 01, 2024 End: September 01, 2024 Dr. Neda Avilez MD Attending Provider Active Start: September 01, 2024 End: September 01, 2024 Dr. Neda Avilez MD Referring Provider Active Start: September 01, 2024 End: September 01, 2024 Team Status: Inactive Member Role/Relationship Status Dates Dr. Neda Avilez MD Primary Care Provider Active Start: September 15, 2024 End: September 15, 2024 Dr. Neda Avilez MD Attending Provider Active Start: September 15, 2024 End: September 15, 2024 Dr. Neda Avilez MD Referring Provider Active Start: September 15, 2024 End: September 15, 2024 (unrecognized sect ion and content) No Status Records FoundNo Status Records Found INFORMATION SOURCE (unrecogn ized section and content) DATE CREATED AUTHOR 03/10/2024 [facility] DATE CREATED AUTHOR AUTHOR'S LUCÍA SLOAN 10/15/2024 [facility] Goals (unrecognized section and content) Goals may be documented in a n alternate sectionGoals may be documented in an alternate sectionGoals may be documented in an alternate sectionGoals may be documented in an alternate section FOR RECORDS PERTAINING TO PATIENTS WHO ARE OR HAVE BEEN ENROLLED IN A CHEMICAL DEPENDENCY/SUBSTANCEABUSE PROGRAM, SOME INFORMATION MAY BE OMITTED. This clinical summary was aggregated from multiple sources. Caution should be exercised in using it in the provision of clinical care. This summary normalizes information from multiple sources, and as a consequence, information in this document may materially change the coding, format and clinical context of patient data. In addition, data may be omitted in some cases. CLINICAL DECISIONS SHOULD BE BASED ON THE PRIMARY CLINICAL RECORDS. [facility] [employer] provides no warranty or guarantee of the accuracy or completeness of information in this document.
== END 2024-10-20 02:54 | disposition home or self-care (01) ==
PROVIDERS: Emergency Provider Emergency Medicine; PCP Internal Medicine; Visit Provider Emergency Medicine
DX: B02.9 Zoster without complications (principal)
CPT/HCPCS: 99282

== ENCOUNTER → 2024-10-25 | Outpatient (CLI) | payer OTHER, SELFPAY ==
--- OUTSIDE RECORDS SUMMARY | 2024-10-25 20:30 | XMS RPT_ITS | CCD ---
Author Organization [facility] Care Team Providers Care Wardrobe Technician Name Role Phone Unavailable Primary Care Provider Unavailbhavik Rosen MD, Abby Noriega Primary Care Provider Kelly IT CONSULTING MANAGER.CATHI, Babar Unavailable [phone] HANK CABRERA Attending Unavailable ABBY ROSEN Primary Care Unavailable ABBY ROSEN Referring Unavailable BABAR MENDOZA Referring Unavailable ABBY ROSEN Primary Care Unavailable ABBY ROSEN Attending Unavailable BABAR MENDOZA Attending Unavailable Fatmata SANCHEZ, Dr. Red Attending Provider Dr. Neda Avilez MD Primary Care Provider [phone] Dr. Neda Avilez MD Referring Provider NURSE, BIM Attending Provider Unavailable Dennys Betancur MD Emergency Provider Mansfield, Neda Primary Care Unavailable Mansfield, Neda Attending Unavailable Mansfield, Neda Referring Unavailable Fatmata, Neda Primary Care Unavailable Fatmata, Neda Attending Unavailable Fatmata, Neda Referring Unavailable Dennys Betancur Attending Unavailable Fatmata, Neda Primary Care Unavailable Mansfield, Neda Attending Unavailable Fatmata, Neda Referring Unavailable Fatmata, Neda Primary Care Unavailable Mansfield, Neda Primary Care Unavailable Mansfield, Neda Attending Unavailable Fatmata, Neda Referring Unavailable Mansfield, Neda Attending Unavailable Mansfield, Neda Primary Care Unavailable Mansfield, Neda Attending Unavailable Allergies Allergy Classification Reported Allergen(s) Allergy Type Date of Onset Reaction(s) Facility (12 sources) Lisinopril; Translations: [LISINOPRIL] Drug Allergy 12-02-2023 Cough [facility] Work Phone: (1 source) Lisinopril Drug Allergy 09-01-2024 [facility] Repository Medications Current Medications Medication Drug Class(es) Dates Sig (Normalized) Sig (Original) acetaminophen 325 mg / oxyCODONE hydrochloride 5 mg oral tablet (2 sources) Opioid Agonist Start: 5 take 1 tablet by mouth every eight hours as needed for pain Oxycodone-Acetamino phen (Percocet) 5-325 mg tablet Active 1 {tbl} PO Q8H as needed for pain 12 3 0 October 20, 2024 Herpes zoster Zoster without complications acyclovir 800 mg oral tablet (2 sources) Herpesvirus Nucleoside Analog DNA Polymerase Inhibitor, Herpes Simplex Virus Nucleoside Analog DNA Polymerase Inhibitor, Herpes Zoster Virus Nucleoside Analog DNA Polymerase Inhibitor Start: 5 take 1 tablet by mouth five times daily Acyclovir 800 mg tablet Active 800 mg PO 5 TIMES DAILY 35 0 October 20, 2024 12:00am cephalexin 500 mg oral capsule (2 sources) Cephalosporin Antibacterial Start: 4 End: 4 take 1 capsule by mouth four times daily cephALEXin (KEFLEX) 500 mg capsule Take 1 capsule by mouth four times daily for 5 days. 20 capsule 11/13/2023 11/18/2023 Active diphenhydrAMINE (8 sources) Histamine-1 Receptor Antagonist DIPHENHYDRAMINE HCL (BENADRYL ORAL) Take by mouth as needed. Active doxycycline monohydrate 100 mg oral tablet (2 sources) Tetracycline-clas s Drug Start: 4 End: 4 take 1 tablet by mouth twice daily doxycycline monohydrate 100 mg tablet Take 1 tablet by mouth two times a day for 5 days. 10 tablet 11/13/2023 11/18/2023 Active gabapentin 100 mg oral capsule (2 sources) Anti-epileptic Agent Start: 5 take 1 capsule by mouth three times daily Gabapentin 100 mg capsule Active 100 mg PO THREE TIMES A DAY 21 0 October 20, 2024 12:00am hydroCHLOROthiazide 12.5 mg / lisinopril 20 mg oral tablet (1 source) Thiazide Diuretic, Angiotensin Converting Enzyme Inhibitor Start: 4 take 1 tablet by mouth once daily in the morning lisinopril-hydroCHL OROthiazide (ZESTORETIC) 20-12.5 mg per tablet Indications: Primary hypertension Take 1 tablet by mouth every morning. 30 tablet 11/19/2023 Active ibuprofen 200 mg oral capsule (8 sources) Nonsteroidal Anti-inflammatory Drug Ibuprofen 200 mg cap Take by mouth as needed. Active Completed/Discontinued Medications Medication Drug Class(es) Dates Sig (Normalized) Sig (Original) chlorthalidone 25 mg oral tablet (19 sources) Thiazide-like Diuretic Start: 08-25-2024 End: 10-17-2024 take 1 tablet by mouth once daily Chlorthalidone 25 mg tablet Discontinued 25 mg PO daily 30 August 25, 2024 2:53pm October 17, 2024 8:27am Start: 12-23-2023 take 1 tablet by jean-claude th once daily chlorthalidone (HYGROTON) 25 mg tablet Take 1 tablet by mouth once daily. 30 tablet 11 12/23/2023 Active hydroCHLOROthiazide 25 mg oral tablet (1 source) Thiazide Diuretic Start: 12-02-2023 End: 12-23-2023 take 1 tablet by mouth once daily hydroCHLOROthiazide 25 mg tablet Take 1 tablet by mouth once daily. 30 tablet 12/02/2023 12/23/2023 Discontinued irbesartan 300 mg oral tablet (19 sources) Angiotensin 2 Receptor Cara Start: 08-25-2024 End: 10-17-2024 take 1 tablet by mouth once daily Irbesartan 300 mg tablet Discontinued 300 mg PO daily 30 August 25, 2024 2:53pm October 17, 2024 8:27am Start: 12-23-2023 take 1 tablet by jean-claude th once daily at bedtime irbesartan (AVAPRO) 300 mg tablet Take 1 tablet by mouth daily at bedtime. 30 tablet 5 12/23/2023 Active losartan potassium 100 mg oral tablet (1 source) Angiotensin 2 Receptor Cara Start: 12-02-2023 End: 12-23-2023 take 1 tablet by mouth once daily losartan (COZAAR) 100 mg tablet Take 1 tablet by mouth once daily. 30 tablet 12/02/2023 12/23/2023 Discontinued metFORMIN hydrochloride 1000 mg oral tablet (11 sources) Biguanide Start: 08-25-2024 End: 08-25-2024 take 1 tablet by mouth twice daily [...] abdominal pain] 12-23-2023 Episodic Administrative/socia l admission (6 sources) First encounter by subject; Translations: [Persons encountering health services in other specified circumstances] 08-25-2024 Episodic Diabetes mellitus without complication (12 sources) Prediabetes; Translations: [Prediabetes] Onset: 08-25-2024 08-25-2024 Episodic Disorders of lipid metabolism (1 source) Mixed hyperlipidemia; Translations: [Mixed hyperlipidemia] 11-19-2023 Chronic Essential hypertension (15 sources) Essential hypertension; Translations: [Essential (primary) hypertension] Onset: 09-05-2024 11-19-2023 Chronic Headache; including migraine (2 sources) Disorder of scalp; Translations: [Pain of scalp] 10-20-2024 Episodic Immunizations and screening for infectious disease (16 sources) Patient encounter status; Translations: [Encounter for screening for human immunodeficiency virus [HIV]] 11-19-2023 Episodic Other connective tissue disease (6 sources) Swelling of lower limb; Translations: [Other specified soft tissue disorders] 11-18-2023 Episodic Other connective tissue disease (5 sources) Suspected respiratory disease; Translations: [Other symptoms and signs involving the nervous system] 08-25-2024 Episodic Other inflammatory condition of skin (1 source) Erythema of skin; Translations: [Erythematous condition, unspecified] 11-13-2023 Episodic Other liver diseases (10 sources) Steatosis of liver; Translations: [Fatty (change of) liver, not elsewhere classified] 12-23-2023 Chronic Other liver diseases (2 sources) Fatty (change of) liver, not elsewhere classified; Translations: [Fatty liver] Onset: 12-25-2023 Chronic Other lower respiratory disease (1 source) Dyspnea on exertion; Translations: [Other forms of dyspnea] 11-19-2023 Episodic Other nutritional; endocrine; and metabolic disorders (18 sources) Body mass index 40+ - severely obese; Translations: [Morbid (severe) obesity due to excess calories] Onset: 08-12-2017 Resolved: 11-19-2023 08-12-2017 Chronic Other nutritional; endocrine; and metabolic disorders (1 source) Morbid (severe) obesity due to excess calories; Translations: [Morbid obesity with BMI of 50.0-59.9, adult ([facility])] Onset: 12-25-2023 Chronic Other nutritional; endocrine; and metabolic disorders (1 source) Body mass index (BMI) 50.0-59.9, adult; Translations: [Morbid obesity with BMI of 50.0-59.9, adult (HCC)] Onset: 12-25-2023 Chronic Residual codes; unclassified (1 source) Hypersomnia, unspecified; Translations: [Hypersomnia, unspecified] Onset: 10-21-2024 Chronic Residual codes; unclassified (1 source) Bilateral lower limb edema; Translations: [Localized edema] 11-19-2023 Episodic Residual codes; unclassified (5 sources) Immunization not carried out because of patient refusal; Translations: [Herpes zoster vaccination declined] 08-25-2024 Episodic Residual codes; unclassified (5 sources) Medication overuse; Translations: [Overuse of medication] 08-25-2024 Episodic Spondylosis; intervertebral disc disorders; other back problems (5 sources) Chronic low back pain; Translations: [Chronic low back pain] 08-25-2024 Episodic Viral infection (3 sources) Herpes zoster; Translations: [Zoster without complications] Onset: 10-20-2024 10-20-2024 Episodic Past or Other Problems Problem Classification Problem Date Documented Da te Episodic/Chronic Other liver diseases (8 sources) Elevated liver enzymes level; Translations: [Abnormal levels of other serum enzymes] Onset: 07-12-2009 07-12-2009 Episodic Results Test Name Value Interpretation Reference Range Facility Emergency Department Summary on 10-20-2024 Emergency Department Summary [facility] Medical Records Department [address] [place] [address] Emergency Department Summary 10/20/24 MR#: [id number] Acct: [id number] Name: Julissa SAHNI Rep #: [id number] : 1970 54 From: Dennys Betancur MD PCP: Dr. Neda Avilez MD Status:PRE ER Location: ED HPI History of Present Illness Chief Complaint: General Illness Narrative Narrative: 54-year-old male who denies significant past medical history presents with what he thought was a cyst on the top of his skull. States he noticed small bumps on the area or at least 1 small bump on the top of his scalp on the left. That was Thursday, approximately 3 days ago. He states Thursday he thought it spread out a little bit. He denies any fevers or chills but states he has a headache 2. Times he is having problems opening his left eye. He has pain behind his left eye as well. No vision changes. No burning sensation. States he is not diabetic. PFSH PFS Medical History Herniated disc Prediabetes Elevated LFTs Fatty liver Hyperlipidemia Hypertension Home Medications ???Medication ???Instructions ???Recorded ???Last Taken ???Type chlorthalidone 25 mg tablet 25 mg PO QDAY #30 tabs 10/17/24 Un known Rx irbesartan 300 mg tablet 300 mg PO QDAY #30 tabs 10/17/24 U nknown Rx acyclovir 800 mg tablet 800 mg PO 5X/DAY #35 TABLETS 10/20 Unknown Rx gabapentin 100 mg capsule 100 mg PO TID #21 caps 10/20/24 Un known Rx oxycodone-acetaminophen 5 mg-325 1 tab PO Q8H PRN pain 3 days #12 0 10/20/24 Unknown Rx mg tablet (Percocet) tabs Allergy/AdvReac Type Severity Reaction Status Date / Time lisinopril AdvReac Intermediate cough Verified 09/01/24 13:12 Family History Father Diabetes Myocardial infarction Heart disease Hypertension Surgical History No pertinent past surgical history Social History adopted: No household members: spouse number of children: 1 current occupational status: employed current occupation: [employer] pets and animals: Yes (1) pets and [...] do you feel safe at home: Yes ROS ROS ED ROS Narrative Review of systems positive for bump on top of scalp, left parietal area. Positive headache and pain behind left eye. No visual changes. No fevers or chills, no nausea or vomiting. EXAM Physical Exam Narrative Exam Narrative: Afebrile. Vital signs noted. Nontoxic-appearing. Cardiovascular examination reveals mild tachycardia. Lungs clear to auscultation bilaterally. Patient at top of scalp reveals small excoriated bumps without fluctuance. On the left forehead there are few red raised areas as well. PERRL, EOMI. Const Vital Signs: 10/20/24 02:02 10/20/24 02:17 Temperature 97.8 F Temperature Source Oral Pulse Rate 103 H Respiratory Rate 16 Respiratory Effort Normal Blood Pressure 171/68 H Blood Pressure Mean 102 Pulse Ox 97 Oxygen Delivery Method Room Air MDM MDM MDM Narrative Medical decision making narrative: The differential diagnosis to include but not limited to severe cyst versus lipoma versus shingles. Given his clinical examination and inspection I do feel he probably has prodromal shingles in the V1 distribution. He was given acyclovir 800 mg here in the emergency department. I did offer him stronger pain medications and prescription form but he declined initially, then finally accepted. He will be started on acyclovir to take 5 times a day, and also given a prescription for gabapentin to help prevent postherpetic neuralgia.. He will follow-up with his primary care provider. I will perform tetracaine and fluorescein staining of the left eye to look for dendritic lesions as well in the event that he would need follow-up with ophthalmology. Tetracaine was instilled in the left eye as well as fluorescein and there is no evidence of dendritic lesions. At this point in time, I feel he can be discharged to follow-up with his primary care provider. I did refer him to ophthalmology as well in the event that he developed shingles on his eyelid, he was told he may need another corneal examination. Return instructions to the emergency department were reviewed. Disposition is discharged home in stable condition. History Record Review Discussion w/independent historian: Patient Addit (more content not included)... Normal [facility] Office Visit Reporton 2024 Office Visit Report [facility] [address] [place] [address] OFFICE VISIT Date of Service: 09/01/24 MR#: [id number] Acct: [id number] Patient: Julissa SAHNI Rep #: [id number] : 1970 Provider: GIANNA NURSE Age/Sex: 54/M [place] [facility] [place] Status: Signed Intake Vital Signs 08/25/24 14:12 [...] Reasons: BP CHECK Chief Complaint: bp check Skinning Machine Feeder Required: No Accompanied by: Self Is patient [...] past year?: No 09/01/24 1503 Date Neda Avilez MD Cosigner Signature: Date (if applicable) CC: Normal [facility] Anion gap in Serum or Plasma Ordered By: Neda Avilez on 08-25-2024 Anion gap [Moles/Vol] 11 mmol/L 5-15 [facility] BUN/creatinine ratioOrdered By: Neda Avilez on 08-25-2024 Urea nitrogen/Creatinine [Mass ratio] 21.1 mg/mg High 10-20 [facility] Bilirubin, totalOrdered By: Neda Avilez on 08-25-2024 Bilirubin [Mass/Vol] 0.33 mg/dL 0.00-1.30 [facility] Carbon dioxide, total [Moles /volume] in Central venous bloodOrdered By: Neda Avilez on 08-25-2024 CO2 [Moles/Vol] 27.8 mmol/L 21.0-32.0 [facility] Chloride assayOrdered By: Alexandr Avilez on 08-25-2024 Chloride [Moles/Vol] 101 mmol/L 98-108 [facility] Comprehensive Metabolic Prof ilon 08-25-2024 Albumin [Mass/Vol] 3.9 g/dL Normal 3.5-5.0 [facility] Comment on above: Performed By: #### L [id number] #### [facility] [address] [place], [place], [id number] Albumin/Globulin [Mass ratio] 1.3 {ratio} Normal 0.9-2.4 [facility] Comment on above: Performed By: #### L [id number] #### [facility] [address] [place], [place], [id number] ALK PHOS 71 U/L Normal 40-129 [facility] Comment on above: Performed By: #### L [id number] #### [facility] [address] [place], [address] ALT [Catalytic activity/Vol] 58 U/L High <=46 [facility] Comment on above: Performed By: #### L [id number] #### [facility] [address] [place], [address] AST [Catalytic activity/Vol] 34 U/L Normal <=37 [facility] Comment on above: Performed By: #### L [id number] #### [facility] [address] [place], [address] Bilirubin [Mass/Vol] 0.33 mg/dL Normal 0.00-1.30 [facility] Comment on above: Performed By: #### L [id number] #### [facility] [address] [place], [address] BUN/CRE 21.1 RATIO High 10-20 [facility] Comment on above: Performed By: #### L [id number] #### [facility] [address] [place], [address] Calcium [Mass/Vol] 9.2 mg/dL Normal 7.6-11.0 [facility] Comment on above: Performed By: #### L [id number] #### [facility] [address] [place], [address] Chloride [Moles/Vol] 101 mmol/L Normal 98-108 [facility] Comment on above: Performed By: #### L [id number] #### [facility] [address] [place], [address] CO2 [Moles/Vol] 27.8 mmol/L Normal 21.0-32.0 [facility] Comment on above: Performed By: #### L [id number] #### [facility] [address] [place], [address] Creatinine [Mass/Vol] 0.93 mg/dL Normal 0.70-1.20 [facility] Comment on above: Performed By: #### L [id number] #### [facility] [address] [place], [address] GAP 11 Normal 5-15 [facility] Comment on above: Performed By: #### L [id number] #### [facility] [address] [place], [address] GFR/1.73 sq M.predicted among non-blacks MDRD (S/P/Bld) [Vol rate/Area] 99 mL/min/{1.73_m2} Normal >60 [facility] Comment on above: Result Comment: mL/m in/1.73m2 CKD-EPI Creatinine Equation (2020) Performed By: #### L [id number] #### [facility] [address] [place], [address] Globulin (S) [Mass/Vol] 3.1 g/dL Normal 2.2-4.2 [facility] Comment on above: Performed By: #### L [id number] #### [facility] [address] [place], [address] Glucose [Mass/Vol] 136 mg/dL High 70-99 [facility] Comment on above: Performed By: #### L [id number] #### [facility] [address] [place], [address] Potassium [Moles/Vol] 3.4 mmol/L Normal 3.3-5.1 [facility] Comment on above: Result Comment: Hemo lysis present, Results??could be affected. ?? Performed By: #### L [id number] #### [facility] [address] [place], [address] Sodium [Moles/Vol] 140 mmol/L Normal 133-145 [facility] Comment on above: Performed By: #### L [id number] #### [facility] [address] [place], [place], [id number] T PROT 7.0 g/dL Normal 5.9-8.4 [facility] Comment on above: Performed By: #### L [id number] #### [facility] [address] [place], [place], [id number] Urea nitrogen [Mass/Vol] 20 mg/dL High 4-19 [facility] Comment on above: Performed By: #### L [id number] #### [facility] [address] [place], [place], [id number] Glomerular filtration rate ( GFR) estimation/1.73 sq m using serum, plasma, or whole bOrdered By: Neda Avilez on 08-25-2024 GFR/1.73 sq M.predicted among non-blacks MDRD (S/P/Bld) [Vol rate/Area] 99 mL/min/{1.73_m2} >60 [facility] Comment on above: mL/min/1.73m2 CKD-EP I Creatinine Equation (2020) Laboratory - Chemistry and C hemistry - challengeOrdered By: Neda Avilez on 08-25-2024 AST [Catalytic activity/Vol] 34 U/L <38 [facility] Laboratory - Hematology and Cell countsOrdered By: Neda Avilez on 08-25-2024 HbA1c (Bld) [Mass fraction] 5.9 % 4.2-6.3 [facility] Potassium measurement (mass/ volume)Ordered By: Neda Avilez on 08-25-2024 Potassium (Unsp spec) [Mass/Vol] 3.4 mmol/L 3.3-5.1 [facility] Comment on above: Hemolysis present, R esults could be affected. Serum creatinine measurement (mass/volume)Ordered By: Neda Avilez on 08-25-2024 Creatinine [Mass/Vol] 0.93 mg/dL 0.70-1.20 [facility] Serum globulin measurementOr dered By: Neda Avilez on 08-25-2024 Globulin (S) [Mass/Vol] 3.1 g/dL 2.2-4.2 [facility] Serum glucose measurement (m ass/volume)Ordered By: Neda Avilez on 08-25-2024 Glucose [Mass/Vol] 136 mg/dL High 70-99 [facility] Serum or plasma alanine sharp otransferase (ALT) measurementOrdered By: Neda Avilez on 08-25-2024 ALT [Catalytic activity/Vol] 58 U/L High <47 [facility] Serum or plasma albumin ry urement (mass/volume)Ordered By: Neda Avilez on 08-25-2024 Albumin [Mass/Vol] 3.9 g/dL 3.5-5.0 [facility] Serum or plasma albumin/glob ulin mass ratioOrdered By: Neda Avilez on 08-25-2024 Albumin/Globulin [Mass ratio] 1.3 {ratio} 0.9-2.4 [facility] Serum or plasma alkaline heladio sphatase measurementOrdered By: Neda Avilez on 08-25-2024 ALP [Catalytic activity/Vol] 71 U/L 40-129 [facility] Serum or plasma calcium ry urement (mass/volume)Ordered By: Neda Avilez on 08-25-2024 Calcium [Mass/Vol] 9.2 mg/dL 7.6-11.0 [facility] Serum or plasma urea nitroge n measurement (mass/volume)Ordered By: Neda Avilez on 08-25-2024 Urea nitrogen [Mass/Vol] 20 mg/dL High 4-19 [facility] Sodium levelOrdered By: Rosio Avilez on 08-25-2024 Sodium [Moles/Vol] 140 mmol/L 133-145 [facility] Total proteinOrdered By: Josr Avilez on 08-25-2024 Protein [Mass/Vol] 7.0 g/dL 5.9-8.4 [facility] Internal Medicine Office Vis ct 08-24-2024 Internal Medicine Office Visit [facility] [address] [facility] [place] [address] OFFICE VISIT Date of Service: 08/25/24 MR#: [id number] Acct: [id number] Name: Julissa SAHNI Rep #: [id number] : 1970 Provider: Dr. 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 Pt was last seen at [facility] in November, out of date on labs. Pt states he has had some elevated readings since being off meds. Pt had a trial of metformin 1000mg bid but never did the follow up. Pt brought labs in, scanned into chart. Previously had fatty liver and had elevate LFTs. Old physician was going to do imaging depending on next values. [facility] Medical History (Updated 08/25/24 @ 16:36 by [...] occupational status: employed current occupation: [employer] pets and animals: Yes (1) pets and [...] and colleagues, with an educational linnea from [employer]. HPI HPI Details: Julissa SAHNI, is a [...] He states he (more content not included)... [facility] 03-08-2024 [facility] Telephone (ENDOMN) -- FLAKITO SAHNI ([id number]) 1970 M Date Time Provider Department 03/08/24 HANK CABRERA During your visit today, we recorded the following information about you: Saman Gunderson 03/08/2024 11:16 AM Signed Left about appointment changing to virtual instead of [...] Encounter Status:Closed by SAMAN GUNDERSON on 03/08/24 [facility] 12-29-2023 CNPN Telephone (ENDOMN) -- FLAKITO SAHNI ([id number]) 1970 M Date Time Provider Department 12/29/23 HANK CABRERA ENDOMN During your visit today, we recorded the following information about you: Paradise Larry 12/29/2023 12:47 PM Signed [facility] called about metFORMIN ER (GLUCOPHAGE XR) 500 mg 24 hr tablet instructions. Current instructions: Take 2 tablets by mouth daily with dinner for 7 days, THEN 2 tablets daily with dinner. Please send new prescription with updated information. Paradise Larry Android Ui Developer II Endocrinology AND Metabolism [facility] X-20, F-20 Allergies As of Date: [...] Encounter Status:Closed by HANK CABRERA on 12/30/23 [facility] Vitaliy 12-23-2023 CNOV Office Visit (RUPERTWADS ) -- FLAKITO SAHNI ([id number]) 1970 M Date Time Provider Department 12/23/23 [...] Vaccine(1) due on 11/15/2023 Covid-19 Vaccine(3 - 2023- season) due on 11/15/2023 Diabetes [...] PSA Scre (more content not included)... Normal [facility] CBC panel Auto (Bld)on 11-18 Erythrocyte distribution width (RBC) [Ratio] 13.3 % Normal 11.5-15.0 [facility] Comment on above: Order Comment: Speci men Type: BLOOD SPECIMEN Ordering Facility: [facility] Address: [address] [place] [address] Performed By: #### 3 3762-6, 90006-1, 3016-3, 47718-5 #### [facility] CLIA [id number] [address] [place] [address] [place] Hematocrit (Bld) [Volume fraction] 49.6 % Normal 39.0-51.0 [facility] Comment on above: Order Comment: Speci men Type: BLOOD SPECIMEN Ordering Facility: [facility] Address: [address] [place] [address] Performed By: #### 3 3762-6, 22409-4, 3016-3, 93613-6 #### [facility] CLIA [id number] [address] [place] [address] [place] Hemoglobin (Bld) [Mass/Vol] 16.2 g/dL Normal 13.0-17.0 [facility] Comment on above: Order Comment: Speci men Type: BLOOD SPECIMEN Ordering Facility: [facility] Address: [address] [place] [address] Performed By: #### 3 3762-6, 08353-3, 3016-3, 23303-5 #### [facility] CLIA [id number] [address] [place] [address] [place] MCH (RBC) [Entitic mass] 28.6 pg Normal 26.0-34.0 [facility] Comment on above: Order Comment: Speci men Type: BLOOD SPECIMEN Ordering Facility: [facility] Address: [address] [place] [address] Performed By: #### 3 3762-6, 71955-0, 3016-3, 09791-2 #### [facility] CLIA [id number] [address] [place] [address] [place] MCHC (RBC) [Mass/Vol] 32.7 g/dL Normal 30.5-36.0 [facility] Comment on above: Order Comment: Speci men Type: BLOOD SPECIMEN Ordering Facility: [facility] Address: [address] [place] [address] Performed By: #### 3 3762-6, 13993-4, 3016-3, 47012-9 #### [facility] CLIA [id number] [address] [place] [address] [place] MCV (RBC) [Entitic vol] 87.5 fL Normal 80.0-100.0 [facility] Comment on above: Order Comment: Speci men Type: BLOOD SPECIMEN Ordering Facility: [facility] Address: [address] [place] [address] Performed By: #### 3 3762-6, 03107-4, 3016-3, 34787-0 #### [facility] CLIA [id number] [address] [place], [place] [id number] [place] Nucleated RBC (Bld) [#/Vol] 10*3/uL Normal <0.01 [facility] Comment on above: Order Comment: Speci men Type: BLOOD SPECIMEN Ordering Facility: [facility] Address: [address] [place] [address] Performed By: #### 3 3762-6, 56170-2, 3016-3, 09941-5 #### [facility] CLIA [id number] [address] [place] [address] [place] Platelet mean volume (Bld) [Entitic vol] 12.1 fL Normal 9.0-12.7 [facility] Comment on above: Order Comment: Speci men Type: BLOOD SPECIMEN Ordering Facility: [facility] Address: [address] [place] [address] Performed By: #### 3 3762-6, 05297-6, 3016-3, 64624-9 #### [facility] CLIA [id number] [address] [place] [address] [place] Platelets (Bld) [#/Vol] 238 10*3/uL Normal 150-400 [facility] Comment on above: Order Comment: Speci men Type: BLOOD SPECIMEN Ordering Facility: [facility] Address: [address] [place] [address] Performed By: #### 3 3762-6, 55116-5, 3016-3, 58328-3 #### [facility] CLIA [id number] [address] [place] [address] [place] RBC (Bld) [#/Vol] 5.67 10*6/uL Normal 4.20-6.00 [facility] Comment on above: Order Comment: Speci men Type: BLOOD SPECIMEN Ordering Facility: [facility] Address: [address] [place] [address] Performed By: #### 3 3762-6, 31828-6, 3016-3, 77282-4 #### [facility] CLIA [id number] [address] [place], [place] [address] [place] [address] [place] WBC (Bld) [#/Vol] 9.95 10*3/uL Normal 3.70-11.00 [facility] Comment on above: Order Comment: Speci men Type: BLOOD SPECIMEN Ordering Facility: [facility] Address: [address] [place] [address] Performed By: #### 3 3762-6, 71248-8, 3016-3, 10163-1 #### [facility] CLIA [id number] [address] [place] [address] [place] CNOVon 11-19-2023 CNOV Office Visit (FPWADS ) -- FLAKITO SAHNI ([id number]) 1970 M Date Time Provider Department 11/19/23 11:00 AM BABAR CORBIN During your visit today, we recorded the following information about you: Pulse Blood pressure Weight Height 103/minute 171/112 169 kg 1.829 m Babar Corbin APRN.MOTOR POLARIZER 11/19/2023 1:39 PM Signed This note was [...] THYROID STIMULATIN (more content not included)... Normal [facility] Comprehensive metabolic 2000 panelon 11-19-2023 Albumin [Mass/Vol] 4.3 g/dL Normal 3.9-4.9 [facility] Comment on above: Order Comment: Sally bonilla Type: BLOOD SPECIMEN Ordering Facility: [facility] Address: [address] [place] [address] Performed By: #### 3 3762-6, 42425-2, 3016-3, 79194-1 #### [facility] CLIA [id number] [address] [place] [address] [place] [address] [place] ALP [Catalytic activity/Vol] 89 U/L Normal 38-113 [facility] Comment on above: Order Comment: Sally bonilla Type: BLOOD SPECIMEN Ordering Facility: [facility] Address: [address] [place] [address] Performed By: #### 3 3762-6, 10056-4, 3016-3, 10467-5 #### [facility] CLIA [id number] [address] [place] [address] [place] ALT [Catalytic activity/Vol] 114 U/L High 10-54 [facility] Comment on above: Order Comment: Speci men Type: BLOOD SPECIMEN Ordering Facility: [facility] Address: [address] [place] [address] Performed By: #### 3 3762-6, 69643-2, 3016-3, 74795-1 #### [facility] CLIA [id number] [address] [place] [address] [place] Anion gap [Moles/Vol] 13 mmol/L Normal 8-15 [facility] Comment on above: Order Comment: Speci men Type: BLOOD SPECIMEN Ordering Facility: [facility] Address: [address] [place] [address] Performed By: #### 3 3762-6, 00704-1, 3016-3, 45257-7 #### [facility] CLIA [id number] [address] [place] [address] [place] AST [Catalytic activity/Vol] 89 U/L High 14-40 [facility] Comment on above: Order Comment: Speci men Type: BLOOD SPECIMEN Ordering Facility: [facility] Address: [address] [place] [address] Performed By: #### 3 3762-6, 25548-1, 3016-3, 36188-4 #### [facility] CLIA [id number] [address] [place] [address] [place] Bilirubin [Mass/Vol] 0.5 mg/dL Normal 0.2-1.3 [facility] Comment on above: Order Comment: Speci men Type: BLOOD SPECIMEN Ordering Facility: [facility] Address: [address] [place] [address] Performed By: #### 3 3762-6, 36134-3, 3016-3, 22032-0 #### [facility] CLIA [id number] [address] [place] [address] [place] Calcium [Mass/Vol] 10.2 mg/dL Normal 8.5-10.2 [facility] Comment on above: Order Comment: Speci men Type: BLOOD SPECIMEN Ordering Facility: [facility] Address: [address] [place] [address] Performed By: #### 3 3762-6, 45693-3, 3016-3, 08893-5 #### [facility] CLIA [id number] [address] [place] [address] [place] Chloride [Moles/Vol] 100 mmol/L Normal 98-107 [facility] Comment on above: Order Comment: Speci men Type: BLOOD SPECIMEN Ordering Facility: [facility] Address: [address] [place] [address] Performed By: #### 3 3762-6, 27599-3, 3016-3, 60264-2 #### [facility] CLIA [id number] [address] [place] [address] [place] CO2 [Moles/Vol] 25 mmol/L Normal 22-30 [facility] Comment on above: Order Comment: Speci men Type: BLOOD SPECIMEN Ordering Facility: [facility] Address: [address] [place] [address] Performed By: #### 3 3762-6, 36636-2, 3016-3, 40061-0 #### [facility] CLIA [id number] [address] [place] [address] [place] Creatinine [Mass/Vol] 0.82 mg/dL Normal 0.73-1.22 [facility] Comment on above: Order Comment: Speci men Type: BLOOD SPECIMEN Ordering Facility: [facility] Address: [address] [place] [address] Performed By: #### 3 3762-6, 95215-5, 3016-3, 21688-8 #### [facility] CLIA [id number] [address] [place] [address] [place] Creatinine and Glomerular filtration rate.predicted panel (S/P/Bld) 106 mL/min/1.73m??? Normal >=60 [facility] Comment on above: Order Comment: Sally bonilla Type: BLOOD SPECIMEN Ordering Facility: [facility] Address: [address] [place] [address] Result Comment: Alma Delia mated Glomerular Filtration [...] actual GFR. Performed By: #### 3 3762-6, 35303-5, 3016-3, 42090-7 #### [facility] CLIA [id number] [address] [place] [address] [place] Glucose [Mass/Vol] 98 mg/dL Normal 74-99 [facility] Comment on above: Order Comment: Sally bonilla Type: BLOOD SPECIMEN Ordering Facility: [facility] Address: [address] [place] [address] Result Comment: The [place] Diabetes Association (ADA) provides guidance for cutoff [...] Standards of Medical Care in Diabetes 2016, [place] [employer] Association. Diabetes Care. 2016.39(Suppl 1). Performed By: #### 3 3762-6, 25521-9, 3016-3, 59633-2 #### [facility] CLIA [id number] [address] [place] [address] [place] Potassium [Moles/Vol] 4.3 mmol/L Normal 3.7-5.1 [facility] Comment on above: Order Comment: Speci men Type: BLOOD SPECIMEN Ordering Facility: [facility] Address: [address] [place] [address] Performed By: #### 3 3762-6, 51784-7, 3016-3, 97557-2 #### [facility] CLIA [id number] [address] [place] [address] [place] Protein [Mass/Vol] 7.5 g/dL Normal 6.3-8.0 [facility] Comment on above: Order Comment: Speci men Type: BLOOD SPECIMEN Ordering Facility: [facility] Address: [address] [place] [address] Performed By: #### 3 3762-6, 09424-5, 3016-3, 14424-2 #### [facility] CLIA [id number] [address] [place] [address] [place] Sodium [Moles/Vol] 138 mmol/L Normal 136-144 [facility] Comment on above: Order Comment: Speci men Type: BLOOD SPECIMEN Ordering Facility: [facility] Address: [address] [place] [address] Performed By: #### 3 3762-6, 53112-3, 3016-3, 02198-5 #### [facility] CLIA [id number] [address] [place] [address] [place] Urea nitrogen [Mass/Vol] 11 mg/dL Normal 9-24 [facility] Comment on above: Order Comment: Speci men Type: BLOOD SPECIMEN Ordering Facility: [facility] Address: [address] [place] [address] Performed By: #### 3 3762-6, 71298-8, 3016-3, 08624-2 #### [facility] CLIA [id number] [address] [place] [address] [place] ECG COMPLETEon 11-19-2023 ECG COMPLETE Ventricular Rate : 9 5 BPM Atrial Rate : 95 BPM P-R Interval : 152 ms QRS Duration : 86 ms Q-T Interval : 352 ms QTC Calculation(Bazett) : 442 ms Calculated P [place] : 60 degrees Calculated R [place] : 30 degrees Calculated T [place] : 57 degrees NORMAL SINUS RHYTHM NORMAL ECG NO PREVIOUS ECGS AVAILABLE Confirmed by MD RIBEIRO GREGORY () on 11/20/2023 8:23:10 AM NAME : FLAKITO SAHNI PID : [id number] : 1970 Gender : Male Race : ORD : [id number] Procedure Date : Nov 19 2023 10:02:15 Edit Date : Nov 20 2023 08:23:14 Diagnosis: NORMAL SINUS RHYTHM NORMAL ECG NO PREVIOUS ECGS AVAILABLE Confirmed by MD RIBEIRO GREGORY () on 11/20/2023 8:23:10 AM Test Reason : I10 Primary hypertension Location : 7 : [facility] Overread By : MD RIBEIRO GREGORY Edited By : MD RIBEIRO GREGORY Referred By : , Acquired by : Anayeli lucas [facility] HCV Ab Ser Qlon 11-19-2023 HCV Ab Ql (S) Negative Normal Negative [facility] Comment on above: Order Comment: Speci men Type: BLOOD SPECIMEN Ordering Facility: [facility] Address: [address] [place] [address] Result Comment: The result suggests no evidence of active infection with Hepatitis C virus. Should recent infection be suspected, repeat testing may be considered 4-6 weeks after this draw. Performed By: #### 3 3762-6, 32792-5, 3016-3, 14931-4 #### [facility] CLIA [id number] [address] [place] [address] [place] HIV 1+2 Ab IA Qlon 4 HIV 1 and 2 Ab IA.rapid Nom (S/P/Bld) Normal [facility] Comment on above: Order Comment: Speci men Type: BLOOD SPECIMEN Ordering Facility: [facility] Address: [address] [place] [address] Result Comment: Test not indicated. Performed By: #### 3 3762-6, 51465-7, 3016-3, 43756-3 #### [facility] CLIA [id number] [address] [place] [address] [place] HIV 1+2 Ab+HIV1 p24 Ag IA Ql Non-Reactive Normal Nonreactive [facility] Comment on above: Order Comment: Speci men Type: BLOOD SPECIMEN Ordering Facility: [facility] Address: [address] [place] [address] Performed By: #### 3 3762-6, 95449-1, 3015-3, 02677-6 #### [facility] CLIA [id number] [address] [place] [address] [place] HIV immunoassay testing algorithm interpretation (S/P/Bld) [Interp] Normal [facility] Comment on above: Order Comment: Speci men Type: BLOOD SPECIMEN Ordering Facility: [facility] Address: [address] [place] [address] Result Comment: No e vidence of HIV-1 or HIV-2 infection. Should recent infection be suspected, repeat testing may be considered 2-3 weeks after this draw. [place] Rev. Code 3701.243(E): This information has been [...] or diagnoses. Performed By: #### 3 3762-6, 51349-9, 3016-3, 04607-6 #### [facility] CLIA [id number] [address] [place] [address] [place] HbA1c (Bld)on 11-19-2023 Average glucose Estimated from glycated hemoglobin (Bld) [Mass/Vol] 126 mg/dL Normal [facility] Comment on above: Order Comment: Sally bonilla Type: BLOOD SPECIMEN Ordering Facility: [facility] Address: [address] [place] [address] Result Comment: eAG: (Estimated average glucose) is a calculated value from HgbA1c and is business office representative of the average blood glucose level in the last 2-3 month period. Performed By: #### 3 3762-6, 14725-6, 301-3, 70349-9 #### [facility] CLIA [id number] [address] [place] [address] [place] HbA1c (Bld) [Mass fraction] 6.0 % High 4.3-5.6 [facility] Comment on above: Order Comment: Sally bonilla Type: BLOOD SPECIMEN Ordering Facility: [facility] Address: [address] [place] [address] Result Comment: [place] Diabetes Association guidelines indicate that patients with HgbA1c in the range 5.7-6.4% are at increased risk for development of diabetes, and intervention by lifestyle modification may be beneficial. HgbA1c greater or equal to 6.5% is considered diagnostic of diabetes. Performed By: #### 3 3762-6, 79253-9, 3016-3, 88793-7 #### [facility] CLIA [id number] [address] [place] [address] [place] Lipid 1996 panelon 4 Cholesterol [Mass/Vol] 222 mg/dL High <200 [facility] Comment on above: Order Comment: Sally bonilla Type: BLOOD SPECIMEN Ordering Facility: [facility] Address: [address] [place] [address] Result Comment: <200 mg/dL, Desirable 200-239 mg/dL, Borderline high >239 mg/dL, High Performed By: #### 3 3762-6, 65670-9, 3016-3, 36403-7 #### [facility] CLIA [id number] [address] [place] [address] [place] Cholesterol in HDL [Mass/Vol] 39 mg/dL Low >39 [facility] Comment on above: Order Comment: Sally bonilla Type: BLOOD SPECIMEN Ordering Facility: [facility] Address: [address] [place] [address] Result Comment: 40-5 9 mg/dL, Acceptable >59 mg/dL, High: Negative risk factor for coronary heart disease <40 mg/dL, Low: Positive risk factor for coronary heart disease Performed By: #### 3 3762-6, 34281-8, 3016-3, 46367-1 #### [facility] CLIA [id number] [address] [place] [address] [place] Cholesterol in LDL [Mass/Vol] 149 mg/dL High <100 [facility] Comment on above: Order Comment: Sally bonilla Type: BLOOD SPECIMEN Ordering Facility: [facility] Address: [address] [place] [address] Result Comment: <100 mg/dL, Optimal 100-129 mg/dL, Near optimal/above optimal 130-159 mg/dL, Borderline high 160-189 mg/dL, High >189 mg/dL, Very high Secondary prevention optimal LDL Cholesterol levels are recommended to be < 70 mg/dL Performed By: #### 3 3762-6, 18579-6, 3016-3, 03957-4 #### [facility] CLIA [id number] [address] [place] [address] [place] Cholesterol in LDL/Cholesterol in HDL [Mass ratio] 3.82 {ratio} High <2.54 [facility] Comment on above: Order Comment: Sally bonilla Type: BLOOD SPECIMEN Ordering Facility: [facility] Address: [address] [place] [address] Result Comment: Refrober kumar: 1. National Cholesterol Education Program ATP III Guideline At-A-Glance Quick Desk Reference: National Heart, Lung, and Blood [place]. National Institutes of Health. 2001: NIH Publication No. 01-3305. 2. An International Atherosclerosis Society position paper: global recommendations for the management of dyslipidemia: executive summary, Atherosclerosis. 2014: 232(2):410-413. Performed By: #### 3 3762-6, 68886-7, 6-3, 41655-7 #### [facility] CLIA [id number] [address] [place] [address] [place] Cholesterol in VLDL [Mass/Vol] 34 mg/dL High <30 [facility] Comment on above: Order Comment: Speci men Type: BLOOD SPECIMEN Ordering Facility: [facility] Address: [address] [place] [address] Performed By: #### 3 3762-6, 95846-7, 6-3, 65027-8 #### [facility] CLIA [id number] [address] [place] [address] [place] Cholesterol non HDL [Mass/Vol] 183 mg/dL High <130 [facility] Comment on above: Order Comment: Speci men Type: BLOOD SPECIMEN Ordering Facility: [facility] Address: [address] [place] [address] Result Comment: <130 mg/dL, Optimal 130-159 mg/dL, Near optimal/above optimal 160-189 mg/dL, Borderline high 190-219 mg/dL, High >219 mg/dL, Very high Secondary prevention optimal non HDL Cholesterol levels are recommended to be <100 mg/dL Performed By: #### 3 3762-6, 97611-5, 6-3, 51205-9 #### [facility] CLIA [id number] [address] [place] [address] [place] Cholesterol.total/Ch olesterol in HDL [Mass ratio] 5.69 {ratio} High <5.10 [facility] Comment on above: Order Comment: Racqueli men Type: BLOOD SPECIMEN Ordering Facility: [facility] Address: [address] [place] [address] Performed By: #### 3 3762-6, 82255-1, 6-3, 62510-7 #### [facility] CLIA [id number] [facility] [place] [address] [place] FASTING TIME unknown Normal [facility] Comment on above: Order Comment: Speci men Type: BLOOD SPECIMEN Ordering Facility: [facility] Address: [address] [place] [address] Performed By: #### 3 3762-6, 49435-6, 3016-3, 58031-2 #### [facility] CLIA [id number] [address] [place] [address] [place] Triglyceride [Mass/Vol] 168 mg/dL High <150 [facility] Comment on above: Order Comment: Speci men Type: BLOOD SPECIMEN Ordering Facility: [facility] Address: [address] [place] [address] Result Comment: <150 mg/dL, Normal 150-199 mg/dL, Borderline high 200-499 mg/dL, High >499 mg/dL, Very high Performed By: #### 3 3762-6, 27467-5, 3016-3, 91446-2 #### [facility] CLIA [id number] [address] [place] [address] [place] [facility] Natriuretic peptide.B prohormone N-Terminal [Mass/Vol] 78 pg/mL Normal <125 [facility] Comment on above: Order Comment: Speci men Type: BLOOD SPECIMEN Ordering Facility: [facility] Address: [address] [place] [address] Performed By: #### 3 3762-6, 53454-1, 3016-3, 98881-8 #### [facility] CLIA [id number] [address] [place] [address] [place] PSA/PROSTATE SPECIFIC ANTIGE N SCREENINGon 11-19-2023 Prostate specific Ag [Mass/Vol] 0.23 ng/mL Normal <2.60 [facility] Comment on above: Order Comment: Speci men Type: BLOOD SPECIMEN Ordering Facility: [facility] Address: [address] [place] [address] Result Comment: Tota l PSA test methodology used is the Electrochemiluminescence Immunoassay by [employer]. Total PSA values by differing methodologies cannot be interchanged. Performed By: #### 3 3762-6, 37227-2, 3016-3, 51891-6 #### [facility] CLIA [id number] [address] [place] [address] [place] TSH SerPl-aCncon 11-19-2023 TSH Qn 1.650 m[IU]/L Normal 0.270-4.200 [facility] Comment on above: Order Comment: Speci men Type: BLOOD SPECIMEN Ordering Facility: [facility] Address: [address] [place] [address] Performed By: #### 3 3762-6, 35900-2, 3016-3, 76442-3 #### [facility] CLIA [id number] [address] [place] [address] [place] CNOVon 11-18-2023 CNOV [facility] -- FLAKITO SAHNI ([id number]) 1970 M Date Time Provider Department 11/18/23 10:45 AM KATINA ABDUL [facility] During your visit today, we recorded the following information about you: Temperature Pulse Respiration Blood pressure 96.8 degrees 87/minute 16/minute 162/88 Weight 171 kg Katina Abdul APRN.MOTOR POLARIZER 11/18/2023 11:13 AM Signed Subjective Patient came [...] history is provided by the patient. No certified court interpreter was used. Review of Systems Constitutional: Negative. [...] okay with this care plan. Katina Abdul APRN.MOTOR POLARIZER Allergies As of Date: 11/18/2023 (No Known [...] Encounter Status:Closed by KATINA ABDUL on 11/18/23 Normal [facility] CNOVon 11-13-2023 CNOV Office Visit ([facility] ) -- FLAKITO SAHNI ([id number]) 1970 M Date Time Provider Department 11/13/23 3:45 PM SHANIQUA CISNEROS [facility] During your visit today, we recorded the following information about you: Temperature Pulse Respiration Blood pressure 99.8 degrees 113/minute 18/minute 144/95 Weight 169.5 kg Shaniqua Cisneros APRN.MOTOR POLARIZER 11/13/2023 3:54 PM Signed Subjective The history is provided by the patient. No certified court interpreter was used. HPI Flakito Sahni is a [...] have confirmed and edited as necessary, the [facility] Review of Systems Constitutional: Negative [...] detail warranting prompt ER evaluation. Shaniqua Cisneros APRN.MOTOR POLARIZER Allergies As of Date: 11/13/2023 (No Known [...] Status:Closed by SHANIQUA CISNEROS on 11/13/23 Normal [facility] Vital Signs Date Time Vital Sign Value Performing Clinician Facility 10-20-2024 02:51-0400 Body temperature 98.3 [degF] Dr. Neda Avilez MD Work Phone: [facility] 10-20-2024 02:51-0400 Diastolic blood pressure 86 mm[Hg] Dr. Neda Avilez MD Work Phone: [facility] 10-20-2024 02:51-0400 Heart rate 89 /min Dr. Neda Avilez MD Work Phone: [facility] 10-20-2024 02:51-0400 Respiratory rate 16 /min Dr. Neda Avilez MD Work Phone: [facility] 10-20-2024 02:51-0400 SaO2% (BldA) [Mass fraction] 98 % Dr. Neda Avilez MD Work Phone: [facility] 10-20-2024 02:51-0400 Systolic blood pressure 160 mm[Hg] Dr. Neda Avilez MD Work Phone: [facility] 10-20-2024 02:02-0400 Body height 182.[address] Neda Avilez MD Work Phone: [facility] 10-20-2024 02:02-0400 Body mass index (BMI) [Ratio] 54 kg/m2 Dr. Neda Avilez MD Work Phone: [facility] 10-20-2024 02:02-0400 Body weight 180.[address] Neda Avilez MD Work Phone: [facility] 09-01-2024 13:13-0400 Body height 185.[address] Neda Avilez MD Work Phone: [facility] 09-01-2024 13:13-0400 Diastolic blood pressure 78 mm[Hg] Dr. Neda Avilez MD Work Phone: [facility] 09-01-2024 13:13-0400 Systolic blood pressure 122 mm[Hg] Dr. Neda Avilez MD Work Phone: [facility] 08-25-2024 16:31-0400 Diastolic blood pressure 96 mm[Hg] Dr. Neda Avilez MD Work Phone: [facility] 08-25-2024 16:31-0400 Systolic blood pressure 168 mm[Hg] Dr. Neda Avilez MD Work Phone: [facility] 08-25-2024 14:12-0400 Body height 185.[address] Neda Avilez MD Work Phone: [facility] 08-25-2024 14:12-0400 Body mass index (BMI) [Ratio] 51.4 kg/m2 Dr. Neda Avilez MD Work Phone: [facility] 08-25-2024 14:12-0400 Body temperature 97.4 [degF] Dr. Neda Avilez MD Work Phone: [facility] 08-25-2024 14:12-0400 Body weight 176.[address] Neda Avilez MD Work Phone: [facility] 08-25-2024 14:12-0400 Diastolic blood pressure 92 mm[Hg] Dr. Neda Avilez MD Work Phone: [facility] 08-25-2024 14:12-0400 Heart rate 82 /min Dr. Neda Avilez MD Work Phone: [facility] 08-25-2024 14:12-0400 Respiratory rate 16 /min Dr. Neda Avilez MD Work Phone: [facility] 08-25-2024 14:12-0400 SaO2% (BldA) [Mass fraction] 97 % Dr. Neda Avilez MD Work Phone: [facility] 08-25-2024 14:12-0400 Systolic blood pressure 176 mm[Hg] Dr. Neda Avilez MD Work Phone: [facility] 12-23-2023 13:29-0400 Diastolic blood pressure 80 mm[Hg] Abby Rosen MD Work Phone: [facility] 12-23-2023 13:29-0400 Systolic blood pressure 148 mm[Hg] Abby Rosen MD Work Phone: [facility] 12-23-2023 12:56-0400 Body height 182.9 cm Abby Rosen MD Work Phone: [facility] 12-23-2023 12:56-0400 Body mass index (BMI) [Ratio] 51.13 kg/m2 Abby Rosen MD Work Phone: [facility] 12-23-2023 12:56-0400 Body weight 171 kg Abby Rosen MD Work Phone: [facility] 12-23-2023 12:56-0400 Heart rate 72 /min Abby Rosen MD Work Phone: [facility] 12-23-2023 12:56-0400 SaO2% (BldA) [Mass fraction] 97 % Abby Rosen MD Work Phone: [facility] 11-19-2023 10:51-0400 Body height 182.9 cm Babar Tmei IT CONSULTING MANAGER.MOTOR POLARIZER Work Phone: [facility] 11-19-2023 10:51-0400 Body mass index (BMI) [Ratio] 50.53 kg/m2 Babar Temi IT CONSULTING MANAGER.MOTOR POLARIZER Work Phone: [facility] 11-19-2023 10:51-0400 Body weight 169 kg Babar Temi IT CONSULTING MANAGER.MOTOR POLARIZER Work Phone: [facility] 11-19-2023 10:51-0400 Diastolic blood pressure 112 mm[Hg] Babar Temi IT CONSULTING MANAGER.MOTOR POLARIZER Work Phone: [facility] 11-19-2023 10:51-0400 Heart rate 103 /min Babar Corbin APRN.MOTOR POLARIZER Work Phone: [facility] 11-19-2023 10:51-0400 Systolic blood pressure 171 mm[Hg] Babar Corbin APRN.MOTOR POLARIZER Work Phone: [facility] 11-18-2023 10:51-0400 Body mass index (BMI) [Ratio] 51.13 kg/m2 Katina Abdul APRN.MOTOR POLARIZER Work Phone: [facility] 11-18-2023 10:51-0400 Body temperature 96.8 [degF] Katina Abdul APRN.MOTOR POLARIZER Work Phone: [facility] 11-18-2023 10:51-0400 Body weight 171 kg Katina Abdul APRN.MOTOR POLARIZER Work Phone: [facility] 11-18-2023 10:51-0400 Diastolic blood pressure 88 mm[Hg] Katina Abdul APRN.MOTOR POLARIZER Work Phone: [facility] 11-18-2023 10:51-0400 Heart rate 87 /min Katina Abdul APRN.MOTOR POLARIZER Work Phone: [facility] 11-18-2023 10:51-0400 Respiratory rate 16 /min Katina Abdul APRN.MOTOR POLARIZER Work Phone: [facility] 11-18-2023 10:51-0400 SaO2% (BldA) [Mass fraction] 97 % Katina Abdul APRN.MOTOR POLARIZER Work Phone: [facility] 11-18-2023 10:51-0400 Systolic blood pressure 162 mm[Hg] Katina Abdul APRN.MOTOR POLARIZER Work Phone: [facility] 11-13-2023 15:35-0400 Body mass index (BMI) [Ratio] 50.68 kg/m2 Shaniqua Cisneros APRN.MOTOR POLARIZER Work Phone: [facility] 11-13-2023 15:35-0400 Body temperature 99.81 [degF] Shaniqua Amelia IT CONSULTING MANAGER.MOTOR POLARIZER Work Phone: [facility] 11-13-2023 15:35-0400 Body weight 169.5 kg Shaniqua Amelia IT CONSULTING MANAGER.MOTOR POLARIZER Work Phone: [facility] 11-13-2023 15:35-0400 Diastolic blood pressure 95 mm[Hg] Shaniqua Amelia IT CONSULTING MANAGER.MOTOR POLARIZER Work Phone: [facility] 11-13-2023 15:35-0400 Heart rate 113 /min Shaniqua Amelia IT CONSULTING MANAGER.MOTOR POLARIZER Work Phone: [facility] 11-13-2023 15:35-0400 Respiratory rate 18 /min Shaniqua Amelia IT CONSULTING MANAGER.MOTOR POLARIZER Work Phone: [facility] 11-13-2023 15:35-0400 SaO2% (BldA) [Mass fraction] 97 % Shaniqua Amelia IT CONSULTING MANAGER.MOTOR POLARIZER Work Phone: [facility] 11-13-2023 15:35-0400 Systolic blood pressure 144 mm[Hg] Shaniqua Amelia IT CONSULTING MANAGER.MOTOR POLARIZER Work Phone: [facility] Encounters Encounter Date Encounter Type Care Provider Facility Start: 10-25-2024 ambulatory Neda Laytonlay Facility :[facility] Start: 10-20-2024 End: 10-20-2024 Emergency department patient visit Dr. Neda Avilez MD Work Phone: -Emergency Department Work Phone: Start: 10-13-2024 End: 10-13-[address] Neda Avilez MD Work Phone: -Sleep Lab Start: 10-13-2024 End: 10-13-[address] Neda Avilez MD -Sleep Lab Work Phone: Start: 10-13-2024 End: 10-13-2024 ambulatory Neda Avilez Facility:[facility] Start: 09-15-2024 End: 09-15-[address] Neda Avilez MD Work Phone: -Sleep Lab Start: 09-15-2024 End: 09-15-[address] Neda Avilez MD -Sleep Lab Work Phone: Start: 09-15-2024 End: 09-15-2024 ambulatory Neda Avilez Facility:[facility] Start: 09-01-2024 End: 09-01-2024 Patient encounter procedure BIM NURSE -[facility] Work Phone: Start: 09-01-2024 End: 09-01-[address] Neda Avilez MD Work Phone: [facility] Work Phone: Start: 08-25-2024 End: 08-25-[address] Neda Avilez MD Work Phone: [facility] Work Phone: Start: 08-25-2024 End: 08-25-[address] Neda Avilez MD -Laboratory [facility] Start: 08-25-2024 End: 08-25-[address] Neda Avilez MD -[facility] Work Phone: Start: 08-25-2024 End: 08-25-[address] Neda Avilez MD Work Phone: [facility] Work Phone: Start: 08-25-2024 End: 08-25-2024 ambulatory Neda Avilez Facility:[facility] Start: 03-08-2024 End: 03-08-2024 Telephone encounter [...] Phone: Endocrinology Start: 12-23-2023 End: 12-23-2023 ambulatory [facility] Facility:[facility] Start: 12-23-2023 End: 12-23-2023 Initial preventive medicine new patient 40-64yrs Abby Rosen MD Work Phone: [facility] Comment on above: Encounter for medica l examination to establish care (Primary Dx); Screening for depression; Encounter for screening examination for other mental health and behavioral disorders; Morbid obesity with BMI of 50.0-59.9, adult (HCC); Fatty liver; Right flank pain Start: 12-23-2023 End: 12-23-2023 Patient encounter status Abby Rosen MD Work Phone: [facility] Work Phone: Start: 11-19-2023 End: 11-19-2023 [facility] Facility:[facility] Start: 11-19-2023 End: 11-19-2023 Office outpatient new 30 minutes Babar Corbin APRN.MOTOR POLARIZER Work Phone: [facility] Comment on above: Primary hypertension (Primary Dx); Bilateral leg edema; STRANGE (dyspnea on exertion); Morbid obesity with BMI of 50.0-59.9, adult (HCC); Hyperlipidemia, mixed; Screening for HIV (human immunodeficiency virus); Need for hepatitis C screening test; Screening for prostate cancer; Screening for diabetes mellitus Start: 11-18-2023 End: 11-18-2023 [facility] Start: 11-18-2023 End: 11-18-2023 Patient encounter procedure Katina Abdul APRN.MOTOR POLARIZER Work Phone: [facility] Comment on above: Leg swelling (Primar y Dx) Start: 11-13-2023 End: 11-13-2023 ambulatory HANK CABRERA Facility:[facility] Start: 11-13-2023 End: 11-13-2023 Patient encounter procedure Shaniqua Cisneros APRN.CNP Work Phone: [facility] Comment on above: Erythema of skin [...] DTaP,Tdap,Td Vaccine (2 - Td or Tdap) [facility] Start: 11-18-2028 Lipid panel Lipid Screening [facility] Start: 11-18-2026 Diabetes Screening Diabetes Screening [facility] Start: 12-22-2024 Anxiety Screening Anxiety Screening [facility] Start: 12-22-2024 Depression Screening Depression Screening [facility] Start: 10-20-2024 [facility] Start: 09-15-2024 Polysomnography [facility] Start: 08-25-2024 Comprehensive metabolic 2000 panel - Serum or Plasma [facility] Start: 04-21-2024 End: 04-21-2024 Follow-up encounter 04/21/2024 10:[address] [facility] [address] [place] [address] Hank Cabrera MD [address] [place], [place] [id number] Follow Up-ok to make establish slot per [facility] Comment on above: Follow Up-ok to make establish slot per [place] Start: 03-31-2024 End: 03-31-2024 Patient encounter procedure 03/31/2024 12:20 PM EST Office Visit [facility] [place] [address] [place] [address] Juan Ramon Crews MD [address] [place], [place] [address] (EST CARE WITH A PCP) [facility] Comment on above: (EST CARE WITH A PCP) Start: 01-21-2024 End: 01-21-2024 Patient encounter procedure 01/21/2024 8:40 AM EST Office Visit Endocrinology [address] [place] [address] Hank Cabrera MD [address] [place], [place] [id number] Follow Up-ok to make establish slot per [facility] Comment on above: Follow Up-ok to make establish slot per [place] Start: 12-25-2023 End: 12-25-2023 ambulatory 12/25/2023 10:[address] [facility] [address] [place] [address] Hank Cabrera MD [address] [place], [place] [id number] Morbid obesity with BMI of 50.0-59.9, adult (HCC) [E66.01, Z68.43]; Fatty liver [K76.0] Endocrinology Comment on above: Morbid obesity with BMI of 50.0-59.9, ad ult (HCC) [E66.01, Z68.43]; Fatty liver [K76.0] Start: 12-23-2023 End: 12-23-2023 Patient encounter procedure 12/23/2023 1:00 PM EDT Office Visit Family Practice [address] [facility] [address] [place], [place] [id number] Abby Rosen MD [address] [facility] [address] [address] [place], [place] [address] establish care Family Practice Comment on above: establish care Start: 11-19-2023 End: 11-19-2023 Patient encounter procedure 11/19/2023 11:00 AM EDT Office Visit Family Practice [address] [facility] [place] [address] Babar Corbin, DI.MOTOR POLARIZER [address] [facility] [place] [address] [facility] Start: 11-15-2023 Covid-19 Vaccine ( season) Covid-19 Vaccine () [facility] Start: 11-15-2023 Covid-19 Vaccine ( season) Covid-19 Vaccine () [facility] Start: 11-15-2023 Influenza vaccination Influenza Vaccine (#1) [facility] Start: 11-14-2022 Covid-19 Vaccine ( season) Covid-19 Vaccine ( season) [facility] Start: 08-28-2021 Pneumococcal Vaccine: 50+ (1 of 1 - PCV) Pneumococcal Vaccine: 50+ (1 of 1 - PCV) [facility] Start: 08-28-2021 Shingrix Vaccine (1 of 2) Shingrix Vaccine (1 of 2) [facility] Start: 04-30-2017 Lipid panel Lipid Screening [facility] Start: 08-28-2016 Diabetes Screening Diabetes Screening [facility] Start: 08-28-2016 Screening for malignant neoplasm of colon [facility] Start: 08-28-1990 Hepatitis B Vaccine (1 of 3 - 19+ 3-dose series) Hepatitis B Vaccine (1 of 3 - 19+ 3-dose series) [facility] Start: 08-28-1989 Anxiety Screening Anxiety Screening [facility] Start: 08-28-1989 Depression Screening Depression Screening [facility] Start: 08-28-1989 HIV screening HIV Screening [facility] Alanine aminotransfe rase [Enzymatic activity/volume] in Serum or Plasma [facility] Albumin [Mass/volume ] in Serum or Plasma [facility] Alkaline phosphatase [Enzymatic activity/volume] in Serum or Plasma [facility] Anion gap in Serum o r Plasma [facility] Bilirubin, total measurement [facility] BUN/Creatinine ratio [facility] Calcium [Mass/volume ] in Serum or Plasma [facility] Carbon dioxide, tota l [Moles/volume] in Central venous blood [facility] CBC panel - Blood by Automated count COMPLETE BLOOD COUNT Lab Routine Primary hypertension Ordered: 11/19/2023 [facility] Work Phone: Comment on above: Ordered: 11/19/2023 Comprehensive metabo lic 2000 panel - Serum or Plasma COMPREHENSIVE METABOLIC PANEL Lab Routine Primary hypertension Ordered: 11/19/2023 [facility] Comment on above: Ordered: 11/19/2023 Creatinine [Mass/vol ume] in Serum or Plasma [facility] ECG COMPLETE [facility] Comment on above: Ordered: 11/19/2023 Glucose [Mass/volume ] in Serum or Plasma [facility] Hemoglobin A1c in Blood HEMOGLOB IN A1C Lab Routine Screening for diabetes mellitus Ordered: 11/19/2023 [facility] Comment on above: Ordered: 11/19/2023 Hepatitis C virus Ab [Presence] in Serum HEPATITIS C ANTIBODY IA WITH CONFIRMATION Lab Routine Need for hepatitis C screening test Ordered: 11/19/2023 [facility] Comment on above: Ordered: 11/19/2023 HIV 1+2 Ab [Presence ] in Serum or Plasma by Immunoassay HIV 1/2 COMBO WITH REFLEX TO DIFFERENTIATION Lab Routine Screening for HIV (human immunodeficiency virus) Ordered: 11/19/2023 [facility] Comment on above: Ordered: 11/19/2023 Lipid 1996 panel - S ronn or Plasma LIPID PANEL BASIC Lab Routine Hyperlipidemia, mixed Ordered: 11/19/2023 [facility] Comment on above: Ordered: 11/19/2023 Measurement of renal function [facility] Natriuretic peptide. B prohormone N-Terminal [Mass/volume] in Serum or Plasma NT PRO BNP Lab Routine Bilateral leg edema Ordered: 11/19/2023 [facility] Comment on above: Ordered: 11/19/2023 Patient Education ED Shingles (H erpes Zoster) [facility] Work Phone: Polysomnography [facility] Potassium measurement [facility] PSA/PROSTATE SPECIFI C ANTIGEN SCREENING PSA/PROSTATE SPECIFIC ANTIGEN SCREENING Lab Routine Screening for prostate cancer Ordered: 11/19/2023 [facility] Comment on above: Ordered: 11/19/2023 Serum chloride measurement [facility] Sodium measurement [facility] Thyrotropin [Units/volume] in Serum or Plasma THYROID STIMULATING HORMONE Lab Routine Morbid obesity with BMI of 50.0-59.9, adult (HCC) Ordered: 11/19/2023 [facility] Comment on above: Ordered: 11/19/2023 Total protein measurement [facility] Urea nitrogen [Mass/volume] in Serum or Plasma [facility] Immunizations Immunization Date Immunization Notes Care Provider Kim molina 01-19-2024 influenza, seasonal, injectable, preservative free Dr. Neda Avilez MD Work Phone: [facility] 01-08-2023 influenza, injectabl e, quadrivalent, preservative free Babar Temi IT CONSULTING MANAGER.MOTOR POLARIZER Work Phone: [facility] 01-08-2023 influenza virus vaccine, unspecified formulation Shaniqua Amelia IT CONSULTING MANAGER.MOTOR POLARIZER Work Phone: [facility] 03-28-2022 tetanus toxoid, redu ramone diphtheria toxoid, and acellular pertussis vaccine, adsorbed Babar Temi IT CONSULTING MANAGER.MOTOR POLARIZER Work Phone: [facility] 01-23-2022 influenza, injectabl e, quadrivalent, preservative free Babar Temi IT CONSULTING MANAGER.MOTOR POLARIZER Work Phone: [facility] 04-13-2020 Covid (Moderna) Dr. Neda de dios MD Work Phone: [facility] 03-14-2020 Covid (Moderna) Dr. Neda de dios MD Work Phone: [facility] 01-11-2014 influenza virus vaccine, unspecified formulation Shaniqua Amelia IT CONSULTING MANAGER.MOTOR POLARIZER Work Phone: [facility] Payers Date Payer Category Payer Unknown [id number] 2024 Self-pay 2023 Private Health Insurance [facility] [employer] [id number] 2023-Present [phone] [address] [place] [address] [facility] [id number] 2023 Unknown [id number] Unknown [id number] Unknown [id number] Unknown [id number] Unknown [id number] Unknown [id number] Unknown [id number] Unknown [id number] Unknown [id number] Social History Date Type Detail Facility Start: 11-13-2023 End: 10-20-2024 Tobacco smoking status NHIS Never smoked tobacco [facility] Start: 11-13-2023 Tobacco use and exposure Smoke less tobacco non-user [facility] Start: 11-13-2023 End: 12-23-2023 Alcoholic beverage intake Current drinker of alcohol (finding) [facility] Start: 11-13-2023 End: 11-18-2023 History of Social function [facility] Start: 11-13-2023 End: 11-18-2023 Tobacco use panel [facility] National Score (1-10 0), lower number is lower risk Not on file [facility] Start: 1970 Sex assigned at Male [facility] Start: 11-06-2023 Gender identity Identifies as male gender (finding) [facility] Start: 11-06-2023 Sexual orientation Heterosexual (nathanael berkowitz) [facility] Has the [employer], or [employer] threatened to shut off services in your home in past 12Mo No [facility] Are you now , , , , never or living with a partner? [facility] How often to you hav e a drink containing alcohol? 2-4 times a month [facility] How many standard dr inks containing alcohol do you have on a typical day? 1 or 2 [facility] How often do you hav e 6 or more drinks on 1 occasion? Less than monthly [facility] Do you feel stress - tense, restless, nervous, or anxious, or unable to sleep at night because your mind is troubled all the time - these days [OSQ] To some extent [facility] (I/We) worried [facility] (my/our) food would run out before (I/we) got money to buy more. Never true [facility] Mental Status Date Assessment Result Facility 10-20-2024 Cognitive function Level Of Cons ciousness Awake;Alert;Appropriate;Follow s Commands [facility] Work Phone: Clinical Notes 11-13-2023 to 10-20-2024 Note Date & Type Note Facility 10-20-2024 Discharge summary [facility] 08-25-2024 Evaluation note Diagnosis Onset Date Resolution [...] of 50.0-59.9, adult noneactive August 25 1:46pm [facility] Work Phone: 1(245) 162-409506-12-2025 Evaluation note* Diagnosis Onset Date Resolution Status Admit Date Essential hypertension acute 2024 1:46pm Prediabetes acute August 25 1:46pm Screening for depression noneactive August 25, 2024 1:46pm Herpes zoster vaccination declined noneactive August 25, 2024 1:46pm Screening for colon cancer noneactiv e August 25, 2024 1:46pm Overuse of medication noneactive Aug 1:46pm Establishing care with new doctor, encounter for noneactive August 25, 2024 1:46pm Chronic low back pain noneactive Aug 1:46pm Steatosis of liver noneactive August 142024 1:46pm Leg swelling noneactive August 25 1:46pm Suspected sleep apnea noneactive Aug 1:46pm Morbid obesity with BMI of 50.0-59.9, adult noneactive August 25, 2024 1:46pm Essential hypertension acute Ju ne 2024 12:54pm [facility] Work Phone: 1(117) 451-853612-24-2024 Miscellaneous Notes* Telephone Encounter - Saman Gunderson - 03/08/2024 11:16 AM EST Left VM about appointment changing to virtual instead of in person. documented in this encounter[facility] Telephone encounter Note * Telephone Encounter - Saman Gunderson - 03/08/2024 11:16 AM EST Left VM about appointment changing to virtual instead of in person. [facility]10-15-2024 Telephone encounter Note* Telephone Encounter - Paradise Larry - 12/29/2023 12:43 PM EDT [facility] called about metFORMIN ER (GLUCOPHAGE XR) 500 mg 24 hr tablet instructions. Current instructions: Take 2 tablets by mouth daily with dinner for 7 days, THEN 2 tablets daily with dinner. Please send new prescription with updated information. Paradise Larry Android Ui Developer II [facility]ocrinology [facility] X-20, F-20 [facility]10-15-2024 Miscellaneous Notes* Telephone Encounter - Paradise Larry - 12/29/2023 12:43 PM EDT [facility] about metFORMIN ER (GLUCOPHAGE XR) 500 mg 24 hr tablet instructions. Current instructions: Take 2 tablets by mouth daily with dinner for 7 days, THEN 2 tablets daily with dinner. Please send new prescription with updated information. Paradise Larry Android Ui Developer II [facility] X-20, F-20 documented in this encounterOur [facility]-2024 Telephone encounter Note * Telephone Encounter - [...] PSS NOTE: Patient needs scheduled appointment No [facility]10-14-2024 Miscellaneous Notes* Telephone Encounter - Umm Howell [...] needs scheduled appointment No documented in this encounterOur [facility]10-11-2024 NoteHNO ID: [id number] Author: HANK CABRERA MD Service: ? Author Type: Physician Type: Progress Notes Filed: 12/25/2023 10:51 Note Text: [facility] CONSULT - NEW VISIT I have communicated my name and active licensure. The patient's identity and physical location were verified at the time of this visit. 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 [facility] CONSULT - NEW VISIT I have communicated my name and active licensure. The patient's identity and physical location wereverified at the time of this visit. 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 PLEASE SCHEDULE THIS VISIT IN YOUR [employer] ACCOUNT, OR CALL TO SCHEDULE FOLLOWS: [facility] [phone] ALL OTHER [facility] LOCATIONS [phone] Order Specific Question: Does consulting provider have [...] Cabrera MD, MPP, MPH [facility]ocrinology [facility] Medical Decision Making: Problems: Moderate: 2+ stable chronic illnesses Data: Assessment requiring an independent historian(s) Risk: Moderate: Moderate risk from testing/treatment Medical Decision Making Level: 4 - Moderate documented in this encounterOur [facility]10-09-2024 NoteHNO ID: [id number] Author: ABBY ROSEN MD Service: ? Author [...] Influenza Vaccine(1) due on 11/15/2023 Covid-19 Vaccine( season) due on 11/15/2023 Diabetes Screening due [...] As below (Z13.31) Screeni (more content not included)...[facility] 12-23-2023 History of Present illness Narrative* Abby [...] Scribe Attestation: By signing my name below, Gilma Serrano, attest that this documentation has been prepared [...] MD December 3:40 PM documented in this encounterOur [facility]09-05-2024 NoteHNO ID: [id number] Author: BABAR CORBIN APRN.MOTOR POLARIZER Service: ? Author Type: Nurse Practitioner Type: Progress Notes Filed: 11/19/2023 13:39 Note Text: This note was created using [employer]. Subjective Flakito Sahni is a 53 year [...] checking blood pressure's regularly at home. Send One to the World message in 1-2 weeks with blood pressure [...] C ANTIBODY IA W (more content not included)...[facility]09-05-2024 History of Present illness Narrative* Babar Corbin APRN.MOTOR POLARIZER - 11/19/2023 10:56 AM EDT This note was created using [employer]. Subjective Flakito Sahni is a 53 year [...] care. Babar Corbin APRN.CATHI documented in this encounterOur Lady Of [facility]09-04-2024 NoteHNO ID: [id number] Author: KATINA ABDUL APRN.CATHI Service: ? Author [...] history is provided by the patient. No certified court interpreter was used. Review of Systems Constitutional: Negative. [...] okay with this care plan. Katina Abdul APRN.CNPC[facility]09-04-2024 History of Present illness Narrative* Katina Abdul APRN.CNP - 11/18/2023 11:10 AM EDT Subjective Patient [...] history is provided by the patient. No certified court interpreter was used. Review of Systems Constitutional: Negative. [...] plan. Katina Abdul APRN.CATHI documented in this encounterOur [facility] Of [facility]08-30-2024 NoteHNO ID: [id number] Author: SHANIQUA CISNEROS APRN.CATHI Service: ? Author Type: Nurse Practitioner Type: Progress Notes Filed: 11/13/2023 15:54 Note Text: Subjective The history is provided by the patient. No certified court interpreter was used. HPI Flakito Sahni is a [...] have confirmed and edited as necessary, the [facility] Review of Systems Constitutional: Negative [...] detail warranting prompt ER evaluation. Shaniqua Cisneros APRN.CATHICleveland [facility]08-30-2024 History of Present illness Narrative* Shaniqua Cisneros APRN.CATHI - 11/13/2023 3:44 PM EDT Images from the original note were not included. Subjective The history is provided by the patient. No certified court interpreter was used. HPI Flakito Sahni is a [...] have confirmed and edited as necessary, the [facility] Review of Systems Constitutional: Negative [...] evaluation. Shaniqua Cisneros APRN.CATHI documented in this encounterKosciusko ClinicDischar summary Author Dennys Betancur [facility] Note Date/Time October 20, 2024 2:4 5am [facility] Medical Records Department [address] [place] [address] Emergency Department Summary 10/20/24 MR#: [id number] Acct: [id number] Name: Julissa SAHNI Rep #:[id number] : 1970 54 From: Dennys Betancur MD PCP: Dr. Neda Avilez MD Status:PRE ER Location: ED HPI History of Present Illness Chief Complaint: General Illness Narrative Narrative: 54-year-old male who denies significant past medical history presents with what he thought was a cyst on the top of his skull. States he noticed small bumps onthe area or at least 1 small bump on the top of his scalp on the left. That wasMonday, approximately 3 days ago. He states Thursday he thought it spread out a little bit. He denies any fevers or chills but states he has a headache 2. Times he is having problems opening his left eye. He has pain behind his left eye as well. No vision changes. No burning sensation. States he is not diabetic. [facility] Medical History Herniated disc Prediabetes Elevated LFTs Fatty liver Hyperlipidemia Hypertension Home Medications ?Medication ?Instructions ?Recorded ?Last Taken ?Type chlorthalidone 25 mg tablet 25 mg PO QDAY #30 tabs 07/08 Unknown Rx irbesartan 300 mg tablet 300 mg PO QDAY #30 tabs 07/08 Unknown Rx acyclovir 800 mg tablet 800 mg PO 5X/DAY #35 TABLETS 10/20/24 Unknown Rx gabapentin 100 mg capsule 100 mg PO TID #21 caps 10/20 Unknown Rx oxycodone-acetaminophen 5 mg-325 1 tab PO Q8H PRN pain 3 days #12 10/20/24 Unknown Rx mg tablet (Percocet) tabs Allergy/AdvReac Type Severity Reaction Status Date / Time lisinopril AdvReac Intermediate cough Verified 09/01/24 13:12 Family History Father Diabetes Myocardial infarction Heart disease Hypertension Surgical History No pertinent past surgical history Social History adopted: No household members: spouse number of children: 1 current occupational status: employed current occupation: [employer] pets and animals: Yes (1) pets and [...] do you feel safe at home: Yes ROS ROS ED ROS Narrative Review of systems positive for bump on top of scalp, left parietal area. Positive headache and pain behind left eye. No visual changes. No fevers or chills, no nausea or vomiting. EXAM Physical Exam Narrative Exam Narrative: Afebrile. Vital signs noted. Nontoxic-appearing. Cardiovascular examination reveals mild tachycardia. Lungs clear to auscultation bilaterally. Patient at top of scalp reveals small excoriated bumps without fluctuance. On the left forehead there are few red raised areas as well. PERRL, EOMI. Const Vital Signs: 10/20/24 02:02 10/20/24 02:17 Temperature 97.8 F Temperature Source Oral Pulse Rate 103 H Respiratory Rate 16 Respiratory Effort Normal Blood Pressure 171/68 H Blood Pressure Mean 102 Pulse Ox 97 Oxygen Delivery Method Room Air MDM MDM MDM Narrative Medical decision making narrative: The differential diagnosis to include but not limited to severe cyst versus lipoma versus shingles. Given his clinical examination and inspection I do feelhe probably has prodromal shingles in the V1 distribution. He was given acyclovir 800 mg here in the emergency department. I did offer him stronger pain medications and prescription form but he declined initially, then finally accepted. He will be started on acyclovir to take 5 times a day, and also givena prescription for gabapentin to help prevent postherpetic neuralgia.. He will follow-up with his primary care provider. I will perform tetracaine and fluorescein staining of the left eye to look for dendritic lesions as well in the event that he would need follow-up with ophthalmology. Tetracaine was instilled in the left eye as well as fluorescein and there is no evidence of dendritic lesions. At this point in time, I feel he can be discharged to follow-up with his primary care provider. I did refer him to ophthalmology as well in the event that he developed shingles on his eyelid, he was told he may need another corneal examination. Return instructions to the emergency department were reviewed. Disposition is discharged home in stable condition. History & Record Review Discussion w/independent historian: Patient Additional record(s) reviewed:: No prior records (No prior ED visits) Discharge Plan Triage Chief Complaint: General Illness ED Provider: Dennys Betancur Dx/Rx/DC Orders Clinical Impression: Shingles, Scalp pain Instructions: ED Shingles (Herpes Zoster) Prescriptions: New gabapentin 100 mg capsule 100 mg PO TID Qty: 21 0RF oxycodone-acetaminophen [Percocet] 5-325 mg tablet 1 tab PO Q8H PRN (Reason: pain) 3 Days Qty: 12 0RF acyclovir 800 mg tablet 800 mg PO 5X/DAY Qty: 35 0RF No Action irbesartan 300 mg tablet 300 mg PO QDAY Qty: 30 2RF chlorthalidone 25 mg tablet 25 mg PO QDAY Qty: 30 2RF Primary Care Provider: Neda Avilez Referrals: Neda Avilez MD [Primary Care Provider] - 1 Week if not improving Joseph Santacruz MD [Med Staff - Active Staff] - As Needed Activity Restrictions/Additional Instructions: Take antiviral as directed. Take gabapentin to help prevent postherpetic neuralgia. Follow-up with [facility] as needed if you develop shingles on your eyelid or have vision problems. Return with new or worsening symptoms. Print Language: Eritrean Disposition Disposition: Home, Self Care What to do if you have Problems For any increased pain, shortness of breath, bleeding, nausea or vomiting, chestpain, or any unexpected problems, contact your Primary Care Provider. Call [facility] ([phone]) or report to the closest Emergency Room. Call 911 if necessary. 10/20/24 0245 <Electronically signed by Dennys Betancur MD> Cosigner Signature (if applicable): CC: Dr. Neda Avilez MD ~ Signed [facility] Work Phone: Evaluation note* Diagnosis Erythema of skin- Primary Unspecified erythematous condition documented [facility] this encounter [facility]* Diagnosis Leg swelling- Primary Swelling of limb documented in this encounter [facility] note* Diagnosis Primary hypertension- Primary Unspecified essential [...] for diabetes mellitus documented in this encounter [facility]* Diagnosis Encounter for medical examination to establish care- Primary Screening for depression Encounter for screening examination for other mental health and behavioral disorders Morbid obesity with BMI of 50.0-59.9, adult (HCC) Morbid obesity Fatty liver Other chronic nonalcoholic liver disease Right flank pain Abdominal pain, unspecified site [facility]* Diagnosis Morbid obesity with BMI of 50.0-59.9, adult (HCC) Morbid obesity Fatty liver Other chronic nonalcoholic liver disease documented in this encounter [facility]* Diagnosis Morbid obesity with BMI of 50.0-59.9, adult (HCC) Morbid obesity Fatty liver Other chronic nonalcoholic liver disease documented in this encounter [facility]* Diagnosis Morbid obesity with BMI of 50.0-59.9, adult (HCC) Morbid obesity Fatty liver Other chronic nonalcoholic liver disease documented in this encounter [facility]* Diagnosis Onset Date Resolution Status Admit Date Establishing care with new doctor, encounter for noneactive August 25, 2024 1:46pm Steatosis of liver noneactive August 142024 1:46pm [facility] Work Phone: Hospital Discharge instructionsAdditional Instructions Take antiviral as directed. Take gabapentin to help prevent postherpetic neuralgia. Follow-up with [facility] as needed if you develop shingles on your eyelid or have vision problems. Return with new or worsening symptoms.[facility] Work Phone: Reason for referral (narrative)* Outpatient Procedure (Routine) - New Request Specialty Diagnoses / Procedures Referred By Contac t Referred To [facility] Diagnoses Primary hypertension Procedures ECG COMPLETE ECG ROUTINE ECG W/LEAST 12 LDS W/I&R Babar Corbin APRN.CNP [address] [facility] [place] [address] [facility] [place] [address] [place] [id number] Referral ID Status Reason Start Date Expiration Date Visits Requested Visits Authorized [id number] New Request Auto-Generat ed Referral 11/19/2023 11/18/2024 1 1 [facility] for referral (narrative)No reason for referral information availableLaurel Hill Medical Services Work Phone: Reason for Referral Specialty Diagnoses / Procedures Referred By Contac t Referred To Contact Diagnoses Morbid obesity with BMI of 50.0-59.9, adult (HCC) Fatty liver Procedures ENDOCRINE MEDICAL WEIGHT MANAGEMENT OFFICE/OUTPATIENT [facility] 60 MINUTES Abby Rosen MD [address] [facility] [place] [address] Referral ID Status Reason Start Date Expiration Date Visits Requested Visits Authorized [id number] Authorized PCP Requested Referral 12/23/2023 12/22/2024 1 1 Specialty Diagnoses / Procedures Referred By Contlandon t Referred To Contact Diagnoses Morbid obesity with BMI of 50.0-59.9, adult (HCC) Procedures ENDOCRINOLOGY DIETITIAN VISIT (MNT) MEDICAL NUTRITION ASSMT&IVNTJ INDIV EACH 15 DE MEDICAL NUTRITION ASSMT&IVNTJ INDIV EACH 15 DE MEDICAL NUTRITION ASSMT&IVNTJ INDIV EACH 15 DE MEDICAL NUTRITION ASSMT&IVNTJ INDIV EACH 15 DE Hank Cabrera MD [address] [place] [address] Referral ID Status Reason Start Date Expiration Date Visits Requested Visits Authorized [id number] Authorized PCP Requested Referral 12/24/2024 1 1 Summary Purpose Family History No Family History Records Found Relationship Condition Age at Onset Recorded Date/T jodie father Diabetes mellitus Unknown Myocardial infarction Unknown Cardiac disease Unknown Hypertension Unknown Advance Directives No Advanced Directives Records Found Advance Directive Response Recorded Date/ Time Do you have a Healthcare Power of Window Shade Ring Coverer? 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 August 25, 2024 1:4 [...] 2024 1: 46pm Establishing care with new doctorjosue for August 25, 2024 1:46pm Chronic low back pain August 25, 2024 1: 46pm Steatosis of liver August 25, 2024 1:46 pm Leg swelling August 25, 2024 1:46 pm Suspected sleep apnea August 25, 2024 1: 46pm Morbid obesity with BMI of 50.0-59.9, ad ult August 25, 2024 1:46pm Essential hypertension September 01, 2024 1 2:54pm Chief Complaint Admit Date 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 August 25, 2024 1:4 6pm BP CHECK September 01, 2024 12:5 4pm G47.10 - Hypersomnia, unspecified September 152024 1:02pm G47.10 - Hypersomnia, unspecified September 152024 1:00pm general October 20, 2024 2:0 1am Additional Source Comments Source Comments (unrecognize d section and content) In the event this informatio n is protected by the Federal Confidentiality of Alcohol and Drug Abuse Patient Records regulations: The Federal rules restrict any use of the information to criminally investigate or prosecute any alcohol or drug abuse patient.[facility] the event this information is protected by the Federal Confidentiality of Alcohol and Drug Abuse Patient Records regulations: The Federal rules restrict any use of the information to criminally investigate or prosecute any alcohol or drug abuse patient.[facility] the event this information is protected by the Federal Confidentiality of Alcohol and Drug Abuse Patient Records regulations: The Federal rules restrict any use of the information to criminally investigate or prosecute any alcohol or drug abuse patient.[facility] the event this information is protected by the Federal Confidentiality of Alcohol and Drug Abuse Patient Records regulations: The Federal rules restrict any use of the information to criminally investigate or prosecute any alcohol or drug abuse patient.[facility] the event this information is protected by the Federal Confidentiality of Alcohol and Drug Abuse Patient Records regulations: The Federal rules restrict any use of the information to criminally investigate or prosecute any alcohol or drug abuse patient.[facility] Anderson[facility] the event this information is protected by the Federal Confidentiality of Alcohol and Drug Abuse Patient Records regulations: The Federal rules restrict any use of the information to criminally investigate or prosecute any alcohol or drug abuse patient.[facility] AndersonIn the event this information is protected by the Federal Confidentiality of Alcohol and Drug Abuse Patient Records regulations: The Federal rules restrict any use of the information to criminally investigate or prosecute any alcohol or drug abuse patient.[facility] AndersonIn the event this information is protected by the Federal Confidentiality of Alcohol and Drug Abuse Patient Records regulations: The Federal rules restrict any use of the information to criminally investigate or prosecute any alcohol or drug abuse patient.[facility] Reason for Visit (unrecogniz ed section and content) Reason Comments Cellulitis Bilateral lower legs x5 days Reason Comments bilateral leg swelling X 2.5 weeks Reason Comments Edema Bilateral legs. Reason Comments Establish Care Reason Comments Obesity Specialty Diagnoses / Procedures Referred By Contac t Referred To Contact Diagnoses Morbid obesity with BMI of 50.0-59.9, adult (HCC) Fatty liver Procedures ENDOCRINE MEDICAL WEIGHT MANAGEMENT OFFICE/OUTPATIENT [facility] 60 MINUTES Abby Rosen MD [address] [facility] [place] [address] Referral ID Status Reason Start Date Expiration Date V isits Requested Visits Authorized [id number] Closed PCP Requested Referral 12/23/2023 12/22/2024 1 1 Reason Comments Med Change Request Reason Comments Medication Problem Care Teams (unrecognized sec tion and content) Wardrobe Technician Relationship Specialty Start Date End Date Abby Rosen MD [address] [facility] [address] [place], [place] [id number] PCP - General Family Medicine 11/19/23 Wardrobe Technician Relationship Specialty Start Date End Date Abby Rosen MD 1 [facility] [address] [place], [place] [id number] PCP - General Family Medicine 11/19/23 Wardrobe Technician Relationship Specialty Start Date End Date Abby Rosen MD [address] [facility] [address] [place], [place] [id number] PCP - General Family Medicine 11/19/23 Wardrobe Technician Relationship Specialty Start Date End Date Abby Rsoen MD [address] [facility] [address] [place], [place] [id number] PCP - General Family Medicine 11/19/23 Wardrobe Technician Relationship Specialty Start Date End Date Abby Rosen MD [address] [facility] [address] [place], [place] [id number] PCP - General Family Medicine 11/19/23 Wardrobe Technician Relationship Specialty Start Date End Date Abby Rosen MD [address] [facility] [address] [place], [place] [id number] PCP - General Family Medicine 11/19/23 Babar Mendoza APRN.[employer] POLAR[employer]ER [address] [facility] [address] [place], [place] [id number] [employer] Operator Internal Medicine 02/21/24 Team Status: Active Member [...] September 15, 2024 End: September 15, 2024 Team Status: Active Member Role/Relationship Status Dates Dr. Neda Avilez MD Primary Care Provider Active Start: October 13, 2024 Dr. Neda Avilez MD Attending Provider Active Start: October 13, 2024 Dr. Neda Avilez MD Referring Provider Active Start: October 13, 2024 Team Status: Inactive Member Role/Relationship Status Dates Dr. Neda Avilez MD Primary Care Provider Active Start: October 20, 2024 End: October 20, 2024 Dennys Betancur MD Emergency Provider Active Star t: October 20, 2024 End: October 20, 2024 Team Status: Inactive Member Role/Relationship Status Dates Dr. Neda Avilez MD Primary Care Provider Active Start: October 13, 2024 End: October 13, 2024 Dr. Neda Avilez MD Attending Provider Active Start: October 13, 2024 End: October 13, 2024 Dr. Neda Avilez MD Referring Provider Active Start: October 13, 2024 End: October 13, 2024 (unrecognized sect ion and content) No Status Records FoundNo Status Records Found INFORMATION SOURCE (unrecogn ized section and content) DATE CREATED AUTHOR 03/10/2024 [facility] DATE CREATED AUTHOR AUTHOR'S ORGANIZ ATION 10/25/2024 [facility] Goals (unrecognized section and content) Goals may [...] BE BASED ON THE PRIMARY CLINICAL RECORDS. [employer] provides no warranty or guarantee of the accuracy or completeness of information in this document.
== END | disposition home or self-care (01) ==
LOC: SL 11:23
PROVIDERS: PCP Internal Medicine; Referring Provider Internal Medicine; Visit Provider Internal Medicine
DX: Z04.9 Encounter for examination and observation for unspecified reason (principal)